=== PATIENT | female | born 1970 | race Caucasian/White ===

== ENCOUNTER → 2023-11-08 12:52 | Outpatient (CLI) | payer BC, SELFPAY ==
--- NOTE | ~2023-11-08 | US_ITS ---
EXAMINATION: US pelvic complete w TV DATE: 11/08/2023 13:17 INDICATION: Unspecified abdominal pain TECHNIQUE: Multiple transabdominal and endovaginal sonographic images of the pelvis were obtained. COMPARISON: None. FINDINGS: The uterus measures 7.6 x 4.5 x 4.0 cm. The endometrial complex measures 2 mm. The ovaries are not visualized however no adnexal abnormality is seen. There is no free fluid in the pelvis. IMPRESSION: 1. No sonographic correlate for the patient's symptoms. Reviewed, dictated and finalized at location L. EW PROFESSOR
== END ==
PROVIDERS: PCP Obstetrics & Gynecology; Visit Provider Obstetrics & Gynecology
DX: R10.9 Unspecified abdominal pain (principal)
CPT/HCPCS: 76830; 76856

== ENCOUNTER 2024-01-21 12:41 | Outpatient (CLI) | payer BC, SELFPAY ==
--- NOTE | ~2024-01-21 | MR_ITS ---
EXAMINATION: MR knee LT wo con DATE: 01/21/2024 13:22 INDICATION: Left knee pain TECHNIQUE: Magnetic resonance imaging (MRI) of the left knee was performed without intravenous contra st. Sequences included coronal PD-weighted FSE, coronal PD-weighted FS FSE, sagittal T2-weighted FSE , sagittal PD-weighted FS FSE and axial PD weighted fat saturated FSE. COMPARISON: None. FINDINGS: Medial compartment: Medial meniscus is normal. Shallow chondral ulceration with chondral surface irregularity at the ante rior weightbearing medial femoral condyle. Lateral compartment: Lateral meniscus is normal. Small regions of partial-thickness chondral fissuring at the central aspe ct of the lateral patellar facet and the deeper chondral fissuring involving greater than 50% of the cartilage thickness at the anterior weightbearing lateral femoral condyle. Patellofemoral compartment: Deep patellar chondral ulceration and fissuring with underlying subarticular edema-like signal change predominantly along the patellar apical ridge and medial and inferolateral aspect of the lateral pat ellar facet. Small central subchondral osteophyte underlying a region of partial-thickness chondral u lceration at the central aspect of the medial trochlea. Less severe shallow chondral surface regulari ty along the cephalad aspect of the trochlear groove and lateral trochlea. Ligaments and tendons: Anterior and posterior cruciate ligaments are normal. The medial collateral ligament and fibular mary ateral ligament complex are normal. The extensor mechanism is normal. The visualized medial and later al hamstring tendons as well as the iliotibial band are normal. Fluid: Moderate-sized left knee joint effusion with suprapatellar plical band. No loose osteochondral bodies identified. Small amount of nonloculated fluid tracking along the superficial margin of the medial h ead of gastrocnemius likely extravasation from a ruptured small Gallagher's cyst. Osseous/other: Small low signal intensity bone island at the anterior medial tibial plateau. No fracture or patholog ic marrow replacing process. IMPRESSION: 1. 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 2. Moderate-sized left knee joint effusion and likely ruptured small Gallagher's cyst. Reviewed, dictated and finalized at location A. IMPRESSION: 1. 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 2. Moderate-sized left knee joint effusion and likely ruptured small Gallagher's cy st.
== END 2024-01-21 12:42 ==
PROVIDERS: PCP Internal Medicine; Visit Provider Internal Medicine
DX: M17.12 Unilateral primary osteoarthritis, left knee (principal); M94.262 Chondromalacia, left knee; M25.462 Effusion, left knee; M71.22 Synovial cyst of popliteal space [Baker], left knee
CPT/HCPCS: 73721

== ENCOUNTER 2024-11-10 05:46 | Emergency (ER) | payer BC, SELFPAY ==
--- NOTE | ~2024-11-10 | CT_ITS ---
Non-contrast CT scan of the Abdomen and Pelvis Clinical indication: Abdominal pain Technique: 2.5 mm axial scans were obtained through the abdomen and pelvis without intravenous or or al contrast. Dose reduction technique was used on this scan by utilizing automated exposure control a nd iterative reconstruction technique. The dose-length product (DLP) was 1376.00 mGy-cm. Findings: Images through the lung bases reveal no abnormalities. There is no evidence of renal or ureteral calculi. The kidneys and the ureters are nondilated. The liver, spleen, pancreas, gallbladder, and adrenals appear normal. There are atherosclerotic calci fications of the aorta. There is no evidence of bowel obstruction. No evidence to suggest appendicitis. Images through the pelvis were performed. There is no evidence of ascites or lymphadenopathy. Urinary bladder unremarkable. No adnexal mass seen. No ascites. Impression: No significant abnormality seen. Reviewed, dictated and finalized at [facility]. SHER ACCORDION Impression: No significant abnormality seen.
--- OUTSIDE RECORDS SUMMARY | 2024-11-10 05:49 | XMS_ITS | Referral Summary ---
Author Organization [facility] Address [address] [facility] [place] [address] Care Team Providers Care Hydrometer Calibrator Name Role Phone Ladarius Osborne MD Primary Care Provider [phone] Source Comments [facility],non-owned Affiliates and Associated Physician Practices is amultiple site organization consisting of ambulatory clinics and hospital sitesin [place], [place], [place] and [place]. This disclosure is being madepursuant to the Care Everywhere program and may not contain all information available regarding this patient. Last updated 18.[facility] [employer] Allergies Active Allergy Reactions Criticality Noted Date Comments Contrast-Iodinated Agents For Ct/Other 07/12/2017 Immunizations Name Administration Dates Next Due TDAP (7yrs+) 07/12/2017 Social History Tobacco Use Types Packs/Day Years Used Date Smoking Tobacco: Never Assessed Sex and Gender Information Value Date Recorded Sex Assigned at Not on file Gender Identity Not on file Sexual Orientation Not on file Plan of Treatment Not on file Care Teams Hydrometer Calibrator Relationship Specialty Start Date End Date Ladarius Osborne MD PCP - General Internal Medicine 07/12/17
--- OUTSIDE RECORDS SUMMARY | 2024-11-10 05:49 | XMS_ITS | Referral Summary ---
Author Organization [facility] Medical [facility] Address [address] [facility] [place] [address] Care Team Providers Care Battery Parts Assembler Name Role Phone Ladarius Osborne MD Primary Care Provider [phone] Solo Pritchett MD Unavailable [phone] Allergies Active Allergy Reactions Criticality Noted Date Comments Iodinated Contrast Media Hives Medium Medications cetirizine (ZyrTEC) 10 mg tablet Take 10 mg by mouth daily. Active albuterol HFA (PROVENTIL HFA,VENTOLIN HFA,PROAIR HFA) 90 mcg/actuation inhaler albuterol sulfate HFA 90 mcg/actuation aerosol inhaler INL 2 PFS PO QID FOR 25 DAYS Active fluticasone propionate (FLONASE) 50 mcg/actuation nasal spray fluticasone propionate 50 mcg/actuation nasal spray,suspension SHAKE LQ AND U 2 SPRAYS IEN QD IN THE BRYAN Active Breo Ellipta 200-25 mcg/dose diskus inhaler INL 1 PUFF PO QD 9 Active OptiChamber Nevaeh Lg Mask spacer U UTD PER ASTHMA ACTION PLAIN 9 Active lisinopriL (PRINIVIL,ZESTR IL) 10 mg tablet Take 10 mg by mouth daily Active hydroCHLOROthia zide (MICROZIDE) 12.5 mg capsule Take 12.5 mg by mouth daily Active atorvastatin (LIPITOR) 10 mg tablet Take 10 mg by mouth daily Active Active Problems Problem Noted Date Diagnosed Date Fibrocystic breast changes of both breasts 09/02 Social History Tobacco Use Types Packs/Day Years Used Date Smoking Tobacco: Former Cigarettes Q uit: 2006 Smokeless Tobacco: Never Alcohol Use Standard Drinks/Week Comments Yes 0 (1 standard drink = 0.6 oz pur e alcohol) occasionally AUDIT-C Answer Date Recorded Q1: How often do you have a drink containing alc ohol? Monthly or less 05/03/2021 Q2: How many drinks containi ng alcohol do you have on a typical day when you are drinking? 1 or 2 05/03/2021 Q3: How often do you have si x or more drinks on one occasion? Never 05/03/2021 Personal Safety Answer Date Recorded Have you ever been in or are you currently in a harmful physical or emotional relationship or is someone making you feel afraid or unsafe? Denies 11/09/2023 Comments No Sex and Gender Information Value Date Recorded Sex Assigned at Not on file Legal Sex Female 7:28 PM ROUTE RIDER SUPERVISOR Gender Identity Not on file Sexual Orientation Not on file Last Filed Vital Signs Vital Sign Reading Time Taken Comments Blood Pressure 150/94 11/10/2023 12:35 AM ROUTE RIDER SUPERVISOR Pulse 79 11/10/2023 1:10 AM ROUTE RIDER SUPERVISOR Temperature 36.6 C (97.8 F) 11/09/2023 6:10 PM ROUTE RIDER SUPERVISOR Respiratory Rate 20 11/09/2023 6:10 PM ROUTE RIDER SUPERVISOR Oxygen Saturation 98% 11/10/2023 1:10 AM ROUTE RIDER SUPERVISOR Inhaled Oxygen Concentration - - Weight 117.9 kg (260 lb) 11/09/2023 6:10 PM ROUTE RIDER SUPERVISOR Height 175.3 cm (5' 9 ) 11/09/2023 6:10 PM ROUTE RIDER SUPERVISOR Body Mass Index 38.4 11/09/2023 6:10 PM ROUTE RIDER SUPERVISOR Plan of Treatment Not on file Procedures Procedure Name Priority Date/Time Associated Diagnosis Comments DIAGNOSTIC MAMMOGRAM BILATERAL W ALEN Schedule Routine, Read Routine (OP Routine) 10/27/2022 3:09 PM ROUTE RIDER SUPERVISOR Mass of left breast, unspecified quadrant COLONOSCOPY 05/03/2021 7:12 AM CDT from Last 3 Months or Most Recently Relevant to Health Maintenance Results * Diagnostic Mammogram Bilateral W Alen (10/27/2022 3:09 PM ROUTE RIDER SUPERVISOR) Anatomical Region Laterality Modality Breast Bilateral Mammography 10/27/2022 3:48 PM ROUTE RIDER SUPERVISOR Impressions 10/27/2022 3:48 PM ROUTE RIDER SUPERVISOR 1. No evidence of malignancy in either breast. 2. No mammographic or sonographic correlate for area of clinical concern in left breast. In the absence of imaging findings, any decision for further intervention should be based on the clinical assessment. OVERALL FINAL ASSESSMENT: BI-RADS Category 2: Benign. RECOMMENDATION: 1. Annual screening mammography is recommended. 2. Clinical follow-up is recommended. Electronically signed by: Martine Cruz M.D. Narrative 10/27/2022 3:48 PM ROUTE RIDER SUPERVISOR EXAMINATION: BILATERAL DIGITAL DIAGNOSTIC MAMMOGRAM INCLUDING CAD AND BILATERAL DIGITAL BREAST TOMOSYNTHESIS; LEFT BREAST SONOGRAM HISTORY: 52-year-old woman with area of palpable concern in the left breast. COMPARISON: Multiple prior studies, most recently 01/18/2022 and dating back to 07/21/2016. TECHNIQUE: Full field digital mammographic views of BOTH breasts were performed, including computer aided detection (CAD) and BILATERAL digital breast tomosynthesis (DBT). Directed ultrasound evaluation of the LEFT breast was performed. BREAST PARENCHYMAL COMPOSITION: There are scattered areas of fibroglandular density. MAMMOGRAM FINDINGS: There is no suspicious mass, distortion, or microcalcification in either breast. There has been no significant interval change from the previous study. Masses and calcifications in both breasts are stable. No mammographic abnormality is seen in the area of palpable clinical concern in the left breast indicated by triangle skin marker. SONOGRAM FINDINGS: Targeted ultrasound was performed in the area of clinical concern in the region of the left nipple. There is no sonographic abnormality. Procedure Note Martine Cruz MD - 10/27/2022 EXAMINATION: BILATERAL DIGITAL DIAGNOSTIC MAMMOGRAM INCLUDING CAD AND BILATERAL DIGITAL BREAST TOMOSYNTHESIS; LEFT BREAST SONOGRAM HISTORY: 52-year-old woman with area of palpable concern in the left breast. COMPARISON: Multiple prior studies, most recently 01/18/2022 and dating back to 07/21/2016. TECHNIQUE: Full field digital mammographic views of BOTH breasts were performed, including computer aided detection (CAD) and BILATERAL digital breast tomosynthesis (DBT). Directed ultrasound evaluation of the LEFT breast was performed. BREAST PARENCHYMAL COMPOSITION: There are scattered areas of fibroglandular density. MAMMOGRAM FINDINGS: There is no suspicious mass, distortion, or microcalcification in either breast. There has been no significant interval change from the previous study. Masses and calcifications in both breasts are stable. No mammographic abnormality is seen in the area of palpable clinical concern in the left breast indicated by triangle skin marker. SONOGRAM FINDINGS: Targeted ultrasound was performed in the area of clinical concern in the region of the left nipple. There is no sonographic abnormality. IMPRESSION: 1. No evidence of malignancy in either breast. 2. No mammographic or sonographic correlate for area of clinical concern in left breast. In the absence of imaging findings, any decision for further intervention should be based on the clinical assessment. OVERALL FINAL ASSESSMENT: BI-RADS Category 2: Benign. RECOMMENDATION: 1. Annual screening mammography is recommended. 2. Clinical follow-up is recommended. Electronically signed by: Martine Cruz M.D. Solo Pritchett MD IMG MAMMO PROCEDURES Final Result * COLONOSCOPY (05/03/2021 7:12 AM CDT) Anatomical Region Laterality Modality Other Narrative Procedure Note Ladarius Cruz MD - 05/03/2021 7:12 AM CDT [facility] Patient Name: Camden Gudino Procedure Date: 05/03/2021 7:12 AM Date of : 1970 Admit Type: Outpatient Age: 51 Gender: Female Attending MD: Ladarius Cruz M.D. Room: [facility] ROOM 02 Note Status: Finalized Procedure: Colonoscopy Indications: Screening for colorectal malignant neoplasm, Thisis the patient's first colonoscopy Referring MD: Ladarius Osborne M.D. Providers: Ladarius Cruz M.D. Medicines: Monitored Anesthesia Care Complications: No immediate complications. Estimated Blood Loss: Estimated blood loss was minimal. Procedure: Pre-Anesthesia Assessment: - Prior to the procedure, a History and Physicalwas performed, and patient medications, allergies and sensitivities were reviewed. The patient'stolerance of previous anesthesia was reviewed. - The risks and benefits of the procedure and the sedation options and risks were discussed with the patient. All questions were answered and informed consent was obtained. - Immediately prior to administration ofmedications, the patient was re-assessed for adequacy to receive sedatives. The benefits, risks and alternatives of theprocedure and sedation were discussed and informed consentwas obtained. All questions were answered. Please referto the signed informed consent document in the medical record. The scope was passed under direct vision.The [id number] Colonoscope was introducedthrough the anus and advanced to the the terminal ileum.The colonoscopy was performed without difficulty. The patient tolerated the procedure well. The qualityof the bowel preparation was evaluated using the BBPS (Varina Bowel Preparation Scale) with scores of:Right Colon = 3, Transverse Colon = 3 and Left Colon = 3 (entire mucosa seen well with no residual staining, small fragments of stool or opaque liquid). Thetotal BBPS score equals 9. The bowel preparation used was GoLYTELY. Bowel prep was administered using a split dose. Findings: The terminal ileum appeared normal. Two sessile polyps were found in the ascending colon. The polyps were3 mm in size. These polyps were removed with a jumbo cold forceps. Resection and retrieval were complete. A 2 mm polyp was found in the descending colon. The polyp wassessile. The polyp was removed with a jumbo cold forceps. Resection andretrieval were complete. Two sessile polyps were found in the sigmoid colon. The polyps were 4to 6 mm in size. These polyps were removed with a cold snare. Resectionand retrieval were complete. A few hyperplastic polyps were found in the rectum and in the sigmoid colon. The polyps were diminutive in size. Internal hemorrhoids were found during retroflexion. The hemorrhoids were small and Grade I (internal hemorrhoids that do not prolapse). Impression: - The examined portion of the ileum was normal. - Two 3 mm polyps in the ascending colon. Resectedand retrieved. - One 2 mm polyp in the descending colon. Resectedand retrieved. - Two 4 to 6 mm polyps in the sigmoid colon.Resected and retrieved. - A few diminutive polyps in the rectum and in the sigmoid colon. - Internal hemorrhoids. Recommendation: - Await pathology results. - Repeat colonoscopy in 3 years for surveillance. - Contact Information: During normal business hours - [facility]: [phone] After hours, evening, nights, weekends and holidays- Please call the hospital jumpbasting machine operator at and ask for the GI fellow email production specialist. Attending Participation: I personally performed the entire procedure. Electronically signed by Ladarius Cruz MD Ladarius Cruz M.D. 05/03/2021 2:18:45 PM . Number of Addenda: 0 Note Initiated On: 05/03/2021 7:12 AM Recognized by the [place] [employer] for promoting quality in endoscopy Ladarius Cruz MD ENDOSCOPY PROCEDURES Final Result from Last 3 Months or Most Recently Relevant to Health Maintenance Insurance [facility] SupplyHog OOS [facility] ACCESS BLUE [place] BLUE ACCESS OOS BLUE ACC[place]M ACCESS Care Teams Battery Parts Assembler Relationship Specialty Start Date End Date Ladarius Osborne MD PCP - General 05/17/17 Solo Pritchett MD [address] [place] [address] Referring Physician Obstetrics and Gynecology 11/25/19
--- OUTSIDE RECORDS SUMMARY | 2024-11-10 05:49 | XMS_ITS | Clinical Summary ---
Author Organization [facility] Address [address] [place] [address] Care Team Providers Care Trackmobile Operator Name Role Phone Ladarius Osborne MD Primary Care Provider [phone] Source Comments [facility],non-owned Affiliates and Associated Physician Practices is amultiple site organization consisting of ambulatory clinics and hospital sitesin [place], [place], [place] and [place]. This disclosure is being madepursuant to the Care Everywhere program and may not contain all information available regarding this patient. Last updated 18.[facility] Allergies Active Allergy Reactions Criticality Noted Date Comments Contrast-Iodinated Agents For Ct/Other 07/12/2017 Immunizations Name Administration Dates Next Due TDAP (7yrs+) 07/12/2017 Social History Tobacco Use Types Packs/Day Years Used Date Smoking Tobacco: Never Assessed Sex and Gender Information Value Date Recorded Sex Assigned at Not on file Gender Identity Not on file Sexual Orientation Not on file Plan of Treatment Health Maintenance Due Date Last Done Comments COLOGUARD (AGES 45-75) - COL ON CA SCREENING 1970 COLON MONITORING 1971 COLONOSCOPY - COLON CA SCREENING 1971 CT COLONOGRAPHY - COLON CA SCREENING 1970 Colorectal Cancer Screening 1970 FIT - COLON CA SCREENING 1971 FLEX SIG - COLON CA SCREENING 1971 LIPID TESTING 1970 MAMMOGRAM 1970 PAP SMEAR 1971 HIV SCREENING 1986 HEPATITIS C SCREENING 03/10/1989 HEPATITIS B VACCINE (1 of 3 - 19+ 3-dose series) 1990 PNEUMOCOCCAL VACCINE 50+ (1 of 1 - PCV) 2021 ZOSTER VACCINE (1 of 2) 2021 COVID-19 VACCINE (1 - 2023-2 5 season) 2024 INFLUENZA VACCINE (#1) 2024 DEPRESSION SCREENING 10/01/2024 DTAP/TDAP/TD VACCINES (2 - T d or Tdap) 07/12/2027 07/12/2017 HIB VACCINE Aged Out No longer eligi ble based on patient's age to complete this topic HPV VACCINE Aged Out No longer eligi ble based on patient's age to complete this topic MENINGOCOCCAL (Group B) VACCINE Aged Out No longer eligible based on patient's age to complete this topic MENINGOCOCCAL VACCINE Aged Out No ihsan rolanda eligible based on patient's age to complete this topic PNEUMOCOCCAL VACCINE Aged Out No long er eligible based on patient's age to complete this topic Care Teams Trackmobile Operator Relationship Specialty Start Date End Date Ladarius Osborne MD PCP - General Internal Medicine 07/12/17
--- OUTSIDE RECORDS SUMMARY | 2024-11-10 05:49 | XMS_ITS | Clinical Summary ---
Author Organization 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 Active hydroCHLOROthiaz abhay (HYDRODIURIL) 12.5 mg tablet Take 1 Tablet by mouth daily. Active cetirizine (ZyrTEC) 10 mg tablet Take 1 Tablet by mouth daily. Active atorvastatin (LIPITOR) 10 mg tablet Take 1 Tablet by mouth daily. Active meloxicam (MOBIC) 15 mg tablet Take 1 Tablet by mouth daily. Active Active Problems No known active problems Family History Medical History Relation Name Comments Cancer Father Lung Cancer Lung Cancer Father Other Father Tobacco Use Cancer Maternal Aunt Stomach Cancer Clotting Disorder Maternal Aunt Blood Lala ts High Cholesterol Maternal Aunt Hypertension Maternal Aunt Other Maternal Aunt Tobacco Use Stomach Cancer Maternal Aunt Heart Disease Maternal Grandfather Other Maternal Grandfather Tobacco Use Diabetes Maternal Grandmother Heart Disease Maternal Grandmother High Cholesterol Maternal Grandmother Hypertension Maternal Grandmother Cancer Maternal Uncle Colon Cancer Colon Cancer Maternal Uncle Other Maternal Uncle Tobacco use Other Mother Tobacco Use No Known Problems Paternal Grandfather No Known Problems Paternal Grandmother High Cholesterol Sister Hypertension Sister Other Sister Tobacco Use Relation Name Status Comments Father Maternal Aunt Maternal Grandfather Maternal Grandmother Maternal Uncle Mother Paternal Grandfather Paternal Grandmother Sister Social History Tobacco Use Types Packs/Day Years Used Date Smoking Tobacco: Former Cigarettes Q uit: 10/01/2005 Smokeless Tobacco: Never Alcohol Use Standard Drinks/Week Comments Yes 0 (1 standard drink = 0.6 oz pur e alcohol) Social drinker Comments Unknown Sex and Gender Information Value Date Recorded Sex Assigned at Not on file Legal Sex Female 1:38 PM CDT Gender Identity Not on file Sexual Orientation Not on file Last Filed Vital Signs Vital Sign Reading Time Taken Comments Blood Pressure 143/92 08/30/2021 10:00 AM [employer]NAGER [facility] Pulse 90 08/30/2021 10:00 AM [employer]NA[employer] Temperature 36.7 C (98.1 F) 08/30/2021 10:00 AM MANAGER [facility]ANNEL Respiratory Rate - - Oxygen Saturation - - Inhaled Oxygen Concentration - - Weight 117 kg (258 lb) 08/30/2021 10:00 AM MANAGER [employer]ANNEL Height 175 cm (5' 8.9 ) 08/30/2021 10:00 AM MANAGER [employer]ANNEL Body Mass Index 38.21 08/30/2021 10:00 AM MANAGER CHANNEL Plan of Treatment Health Maintenance Due Date Last Done Comments HEPATITIS B VACCINES (1 of 3 - 19+ 3-dose series) 1990 CERVICAL CANCER SCREENING 2001 BREAST CANCER SCREENING 2011 FIT-DNA Q 3 years 2016 FIT/FOBT Q 1 year 2016 Flex Sig/CT Colonography Q 5 years 2016 ZOSTER VACCINE (1 of 2) 2021 INFLUENZA VACCINE (#1) 2024 08/15/2017 DTAP/TDAP/TD VACCINES (2 - T d or Tdap) 07/12/2027 07/12/2017 COLORECTAL SCREENING 05/03/2031 05/03/2021 Colorectal Cancer Screening 05/03/2031 PNEUMOCOCCAL VACCINE 0-64 YEARS Aged Out No longer eligible based on patient's age to complete this topic Insurance BCBS BLUE ACCESS/TRUE BLUE PPO [facility]
--- OUTSIDE RECORDS SUMMARY | 2024-11-10 05:49 | XMS_ITS | Data Portability ---
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 Lab urinalysis, microscopic 2022 023 [facility] (Lab), [address] [place], [address], 3 09:26:32 lipid panel, serum 2022 023 [facility] (Lab), [address] [place], [address], 3 19:06:36 CMP, serum or plasma 2022 023 [facility] (Lab), [address] [place], [address], 3 19:06:51 CBC w/ auto diff 2022 023 [id number] [facility] (Lab), [address] [place], [address], 3 18:25:34 Referral None recorded. Procedures None recorded. Surgeries None recorded. Imaging None recorded. Medication Orders Macrobid 100 mg capsule 2022 023 [id number] [id number], [address], [place], [place], [id number], 3 18:25:34 Patient TargetsNo targets recorded. Patient InstructionsNo instructions recorded. Reason for Referral None Reported. Results Created Date Observation Date Name Description Value Unit Range Abnormal Flag Note LastModifiedBy Organization Detail LastModifiedTime 11/17/19 22 11/17/2021 LIPID PANEL cholesterol 185 mg/dL 140-19 9 NIH TONI NSUS RECOM MENDA TION FOR MERCEDES STERO L: ADULT CHILD LOW RISK: <200 <170 BORDE RLINE : <200- 239 ----- HIGH RISK: >240 >200 Not Available [facility] (Lab) [address] [place], [address], 11/17/2021 16:16:44 11/17/19 22 11/17/2021 LIPID PANEL triglyceride s 119 mg/dL 0-150 NIH TONI NSUS REPOR T RECOM MENDA TION FOR TRIGL YCERI ASHLEY: ADULT CHILD LOW RISK: <150 ----- BODER LINE: 150-1 99 ----- HIGH RISK: >200 ----- Not Available [facility] (Lab) [address] [place], [address], 11/17/2021 16:16:44 11/17/19 22 11/17/2021 LIPID PANEL HDL cholesterol 49 mg/dL 40- Not Available [facility] (Lab) [address] [place], [address], 11/17/2021 16:16:44 11/17/19 22 11/17/2021 LIPID PANEL LDL cholesterol, calculated 112 mg/dL 0-130 NIH TONI NSUS REPOR T RECOM MENDA TIONS FOR LDL: ADULT CHILD LOW RISK <130 <110 (OPTI MAL LDL) <100 ----- KELBYDE RLINE : 130-1 59 ----- HIGH RISK: >160 >130 A TRIGL YCERI DE RESUL T >400 INVAL IDATE S THE CALCU LATIO N FOR LDL FRACT IONAT ION - THE LDL RESUL T WILL NOT BE REPOR CHETAN. Not Available [facility] (Lab) [address] [place], [address], 11/17/2021 16:16:44 11/17/19 22 11/17/2021 CBC/C OMPLE TE BLD COUNT W/DIF F mean red cell volume 88.9 fL 82.0-9 9.0 Not Available [facility] (Lab) [address] [place], [address], 11/17/2021 14:42:42 11/17/19 22 11/17/2021 CBC/C OMPLE TE BLD COUNT W/DIF F white blood cells 9.1 x10'3 /uL 4.2-10 .8 Not Available [facility] (Lab) [address] [place], [address], 11/17/2021 14:42:42 11/17/19 22 11/17/2021 CBC/C OMPLE TE BLD COUNT W/DIF F red blood cells 5.52 x10'6 /uL 3.80-5 .20 high Not Available [facility] (Lab) [address] [place], [address], 11/17/2021 14:42:42 11/17/19 22 11/17/2021 CBC/C OMPLE TE BLD COUNT W/DIF F hemoglobin 15.8 g/dL 12.0-1 5.6 high Not Available [facility] (Lab) [address] [place], [address], 11/17/2021 14:42:42 11/17/19 22 11/17/2021 CBC/C OMPLE TE BLD COUNT W/DIF F hematocrit 49.1 % 35.7-4 5.7 high Not Available [facility] (Lab) [address] [place], [address], 11/17/2021 14:42:42 11/17/19 22 11/17/2021 CBC/C OMPLE TE BLD COUNT W/DIF F mean red cell hemoglobin 28.6 pg 27.0-3 3.0 Not Available [facility] (Lab) [address] [place], [address], 11/17/2021 14:42:42 11/17/19 22 11/17/2021 CBC/C OMPLE TE BLD COUNT W/DIF F mean RBC HGB concentratio n 32.2 g/dL 31.0-3 6.0 Not Available [facility] (Lab) [address] [place], [address], 11/17/2021 14:42:42 11/17/19 22 11/17/2021 CBC/C OMPLE TE BLD COUNT W/DIF F red cell distribution width 13.9 % 11.8-1 5.5 Not Available [facility] (Lab) [address] [place], [address], 11/17/2021 14:42:42 11/17/19 22 11/17/2021 CBC/C OMPLE TE BLD COUNT W/DIF F platelets 355 x10'3 /uL 150-40 0 Not Available [facility] (Lab) [address] [place], [address], 11/17/2021 14:42:42 11/17/19 22 11/17/2021 CBC/C OMPLE TE BLD COUNT W/DIF F mean platelet volume 10.3 fL 9.0-12 .4 Not Available [facility] (Lab) [address] [place], [address], 11/17/2021 14:42:42 11/17/19 22 11/17/2021 CBC/C OMPLE TE BLD COUNT W/DIF F neutrophils 65.0 % 39.0-7 2.0 Not Available [facility] (Lab) [address] [place], [address], 11/17/2021 14:42:42 11/17/19 22 11/17/2021 CBC/C OMPLE TE BLD COUNT W/DIF F lymphocytes 25.4 % 16.0-4 7.0 Not Available [facility] (Lab) [address] [place], [address], 11/17/2021 14:42:42 11/17/19 22 11/17/2021 CBC/C OMPLE TE BLD COUNT W/DIF F monocytes 7.1 % 5.0-12 .0 Not Available [facility] (Lab) [address] [place], [address], 11/17/2021 14:42:42 11/17/19 22 11/17/2021 CBC/C OMPLE TE BLD COUNT W/DIF F eosinophils 1.4 % 1.0-7. 0 Not Available [facility] (Lab) [address] [place], [address], 11/17/2021 14:42:42 11/17/19 22 11/17/2021 CBC/C OMPLE TE BLD COUNT W/DIF F basophils 0.7 % 0.0-2. 0 Not Available [facility] (Lab) [address] [place], [address], 11/17/2021 14:42:42 11/17/19 22 11/17/2021 CBC/C OMPLE TE BLD COUNT W/DIF F immature granulocytes 0.4 % 0.00-0 .50 Not Available [facility] (Lab) [address] [place], [address], 11/17/2021 14:42:42 11/17/19 22 11/17/2021 CBC/C OMPLE TE BLD COUNT W/DIF F neutrophils, absolute count 5.92 x10'3 /uL 1.5-8. 0 Not Available [facility] (Lab) [address] [place], [address], 11/17/2021 14:42:42 11/17/19 22 11/17/2021 CBC/C OMPLE TE BLD COUNT W/DIF F lymphocytes, absolute count 2.31 x10'3 /uL 1.07-3 .43 Not Available [facility] (Lab) [address] [place], [address], 11/17/2021 14:42:42 11/17/19 22 11/17/2021 CBC/C OMPLE TE BLD COUNT W/DIF F monocytes, absolute count 0.65 x10'3 /uL 0.29-0 .99 Not Available [facility] (Lab) [address] [place], [address], 11/17/2021 14:42:42 11/17/19 22 11/17/2021 CBC/C OMPLE TE BLD COUNT W/DIF F eosinophils, absolute count 0.13 x10'3 /uL 0.02-0 .53 Not Available [facility] (Lab) [address] [place], [address], 11/17/2021 14:42:42 11/17/19 22 11/17/2021 CBC/C OMPLE TE BLD COUNT W/DIF F basophils, absolute count 0.06 x10'3 /uL 0.01-0 .08 Not Available [facility] (Lab) [address] [place], [address], 11/17/2021 14:42:42 11/17/19 22 11/17/2021 CBC/C OMPLE TE BLD COUNT W/DIF F immature granulocytes ,absolute 0.04 x10'3 /uL 0.00-0 .05 Not Available [facility] (Lab) [address] [place], [address], 11/17/2021 14:42:42 11/17/19 22 11/17/2021 CBC/C OMPLE TE BLD COUNT W/DIF F nucleated red blood cells 0.0 % -0 Not Available [facility] (Lab) [address] [place], [address], 11/17/2021 14:42:42 11/17/19 22 11/17/2021 CBC/C OMPLE TE BLD COUNT W/DIF F NRBC# 0.00 x10'3 /uL Not Available [facility] (Lab) [address] [place], [address], 11/17/2021 14:42:42 02/04/20 22 02/03/2022 TSH thyroid-stim ulating hormone 1.150 uIU/m L 0.465- 4.680 Not Available [facility] (Lab) [address] [place], [address], 02/03/2022 13:44:40 02/04/20 22 02/03/2022 COMPR EHENS SARAH METAB OLIC PANEL carbon dioxide 29 mmol/ L 22-30 Not Available [facility] (Lab) [address] [place], [address], 02/03/2022 13:16:55 02/04/20 22 02/03/2022 COMPR EHENS SARAH METAB OLIC PANEL sodium 139 mmol/ L 137-14 5 Not Available [facility] (Lab) [address] [place], [address], 02/03/2022 13:16:55 02/04/20 22 02/03/2022 COMPR EHENS SARAH METAB OLIC PANEL potassium 4.8 mmol/ L 3.5-5. 1 Not Available [facility] (Lab) [address] [place], [address], 02/03/2022 13:16:55 02/04/20 22 02/03/2022 COMPR EHENS SARAH METAB OLIC PANEL chloride 101 mmol/ L 98-107 Not Available [facility] (Lab) [address] [facility] [place], [address], 02/03/2022 13:16:55 02/04/20 22 02/03/2022 COMPR EHENS SARAH METAB OLIC PANEL anion gap 13.8 mmol/ L 14-22 low Not Available [facility] (Lab) [address] [place], [address], 02/03/2022 13:16:55 02/04/20 22 02/03/2022 COMPR EHENS SARAH METAB OLIC PANEL glucose 97 mg/dL 70-99 Not Available [facility] (Lab) [address] [place], [address], 02/03/2022 13:16:55 02/04/20 22 02/03/2022 COMPR EHENS SARAH METAB OLIC PANEL BUN 16 mg/dL 8-19 Not Available [facility] (Lab) [address] [place], [address], 02/03/2022 13:16:55 02/04/20 22 02/03/2022 COMPR EHENS SARAH METAB OLIC PANEL creatinine 0.97 mg/dL 0.66-1 .25 Not Available [facility] (Lab) [address] [place], [address], 02/03/2022 13:16:55 02/04/20 22 02/03/2022 COMPR EHENS SARAH METAB OLIC PANEL GFR >60 Refer ence Range : [place] GFR Healt hy Adult : >60 mL/mi n/1.7 3 m2 Chron ic Kidne y Disea se: 15-60 mL/mi n/1.7 3 m2 Kidne y Failu re: <15/m L/min /1.73 m2 www.n iddk. nih.g ov The MDRD study equat ion has not been valid ated in child calixto <18 years of age; pregn ant women ; the elder ly >85 years of age; or in some racia l or ethni c subgr oups, such as Hiskim nics. Outsi de the valid ated davi eters , estim ated GFR is less accur ate, requi ring clini edmond judgm ent on a case- by-ca se basis . Clini edmond inter preta tion for other races and ages must be made by the clini denton. The MDRD study equat ion has not been valid ated for the evalu ation of serum creat inine relat ed to nutri latrell l statu s or medic ation usage . For perso ns <18 years of age, a pedia tric GFR calcu lator is avail able on the [facility] websi te: https ://murphy lares.alexa abbott.o rg/pr ofess ional s/kdo qi/gf r_cal culat or Not Available [facility] (Lab) [address] [place], [address], 02/03/2022 13:16:55 02/04/20 22 02/03/2022 COMPR EHENS SARAH METAB OLIC PANEL alkaline phosphatase 92 U/L 38-126 Not Available [facility] (Lab) [address] [place], [address], 02/03/2022 13:16:55 02/04/20 22 02/03/2022 COMPR EHENS SARAH METAB OLIC PANEL alanine aminotransfe rase 41 U/L 0-35 high Not Available [facility] (Lab) [address] [place], [address], 02/03/2022 13:16:55 02/04/20 22 02/03/2022 COMPR EHENS SARAH METAB OLIC PANEL aspartate aminotransfe rase 31 U/L 15-37 Not Available [facility] (Lab) [address] [place], [address], 02/03/2022 13:16:55 02/04/20 22 02/03/2022 COMPR EHENS SARAH METAB OLIC PANEL bilirubin, total 0.30 mg/dL 0.20-1 .30 Not Available [facility] (Lab) [address] [place], [address], 02/03/2022 13:16:55 02/04/20 22 02/03/2022 COMPR EHENS SARAH METAB OLIC PANEL calcium 10.8 mg/dL 8.4-10 .2 high Not Available [facility] (Lab) [address] [place], [address], 02/03/2022 13:16:55 02/04/20 22 02/03/2022 COMPR EHENS SARAH METAB OLIC PANEL total protein 7.9 g/dL 6.3-8. 2 Not Available [facility] (Lab) [address] [place], [address], 02/03/2022 13:16:55 02/04/20 22 02/03/2022 COMPR EHENS SARAH METAB OLIC PANEL albumin 4.7 g/dL 3.4-5. 0 Not Available [facility] (Lab) [address] [place], [address], 02/03/2022 13:16:55 02/04/20 22 02/03/2022 COMPR EHENS SARAH METAB OLIC PANEL globulin 3.2 g/dL 2.6-4. 2 Not Available [facility] (Lab) [address] [place], [address], 02/03/2022 13:16:55 02/04/20 22 02/03/2022 COMPR EHENS SARAH METAB OLIC PANEL A/G ratio 1.5 ratio 1.0-2. 0 Not Available [facility] (Lab) [address] [place], [address], 02/03/2022 13:16:55 02/04/20 22 02/03/2022 MAGNE SIUM magnesium 1.9 mg/dL 1.6-2. 3 Not Available [facility] (Lab) [address] [facility] [place], [address], 02/03/2022 13:16:44 02/04/20 22 02/03/2022 CBC/C OMPLE TE BLD COUNT W/DIF F mean red cell volume 89.9 fL 82.0-9 9.0 Not Available [facility] (Lab) [address] [place], [address], 02/03/2022 12:45:14 02/04/20 22 02/03/2022 CBC/C OMPLE TE BLD COUNT W/DIF F white blood cells 9.0 x10'3 /uL 4.2-10 .8 Not Available [facility] (Lab) [address] [place], [address], 02/03/2022 12:45:14 02/04/20 22 02/03/2022 CBC/C OMPLE TE BLD COUNT W/DIF F red blood cells 5.64 x10'6 /uL 3.80-5 .20 high Not Available [facility] (Lab) [address] [place], [address], 02/03/2022 12:45:14 02/04/20 22 02/03/2022 CBC/C OMPLE TE BLD COUNT W/DIF F hemoglobin 16.2 g/dL 12.0-1 5.6 high Not Available [facility] (Lab) [address] [place], [address], 02/03/2022 12:45:14 02/04/20 22 02/03/2022 CBC/C OMPLE TE BLD COUNT W/DIF F hematocrit 50.7 % 35.7-4 5.7 high Not Available [facility] (Lab) [address] [place], [address], 02/03/2022 12:45:14 02/04/20 22 02/03/2022 CBC/C OMPLE TE BLD COUNT W/DIF F mean red cell hemoglobin 28.7 pg 27.0-3 3.0 Not Available [facility] (Lab) [address] [place], [address], 02/03/2022 12:45:14 02/04/20 22 02/03/2022 CBC/C OMPLE TE BLD COUNT W/DIF F mean RBC HGB concentratio n 32.0 g/dL 31.0-3 6.0 Not Available [facility] (Lab) [address] [place], [address], 02/03/2022 12:45:14 02/04/20 22 02/03/2022 CBC/C OMPLE TE BLD COUNT W/DIF F red cell distribution width 13.3 % 11.8-1 5.5 Not Available [facility] (Lab) [address] [place], [address], 02/03/2022 12:45:14 02/04/20 22 02/03/2022 CBC/C OMPLE TE BLD COUNT W/DIF F platelets 372 x10'3 /uL 150-40 0 Not Available [facility] (Lab) [address] [place], [address], 02/03/2022 12:45:14 02/04/20 22 02/03/2022 CBC/C OMPLE TE BLD COUNT W/DIF F mean platelet volume 10.2 fL 9.0-12 .4 Not Available [facility] (Lab) [address] [place], [address], 02/03/2022 12:45:14 02/04/20 22 02/03/2022 CBC/C OMPLE TE BLD COUNT W/DIF F neutrophils 67.6 % 39.0-7 2.0 Not Available [facility] (Lab) [address] [place], [address], 02/03/2022 12:45:14 02/04/20 22 02/03/2022 CBC/C OMPLE TE BLD COUNT W/DIF F lymphocytes 24.5 % 16.0-4 7.0 Not Available [facility] (Lab) [address] [place], [address], 02/03/2022 12:45:14 02/04/20 22 02/03/2022 CBC/C OMPLE TE BLD COUNT W/DIF F monocytes 6.1 % 5.0-12 .0 Not Available [facility] (Lab) [address] [place], [address], 02/03/2022 12:45:14 02/04/20 22 02/03/2022 CBC/C OMPLE TE BLD COUNT W/DIF F eosinophils 0.9 % 1.0-7. 0 low Not Available [facility] (Lab) [address] [place], [address], 02/03/2022 12:45:14 02/04/20 22 02/03/2022 CBC/C OMPLE TE BLD COUNT W/DIF F basophils 0.6 % 0.0-2. 0 Not Available [facility] (Lab) [address] [place], [address], 02/03/2022 12:45:14 02/04/20 22 02/03/2022 CBC/C OMPLE TE BLD COUNT W/DIF F immature granulocytes 0.3 % 0.00-0 .50 Not Available [facility] (Lab) [address] [place], [address], 02/03/2022 12:45:14 02/04/20 22 02/03/2022 CBC/C OMPLE TE BLD COUNT W/DIF F neutrophils, absolute count 6.08 x10'3 /uL 1.5-8. 0 Not Available [facility] (Lab) [address] [place], [address], 02/03/2022 12:45:14 02/04/20 22 02/03/2022 CBC/C OMPLE TE BLD COUNT W/DIF F lymphocytes, absolute count 2.20 x10'3 /uL 1.07-3 .43 Not Available [facility] (Lab) [address] [place], [address], 02/03/2022 12:45:14 02/04/20 22 02/03/2022 CBC/C OMPLE TE BLD COUNT W/DIF F monocytes, absolute count 0.55 x10'3 /uL 0.29-0 .99 Not Available [facility] (Lab) [address] [place], [address], 02/03/2022 12:45:14 02/04/20 22 02/03/2022 CBC/C OMPLE TE BLD COUNT W/DIF F eosinophils, absolute count 0.08 x10'3 /uL 0.02-0 .53 Not Available [facility] (Lab) [address] [place], [address], 02/03/2022 12:45:14 02/04/20 22 02/03/2022 CBC/C OMPLE TE BLD COUNT W/DIF F basophils, absolute count 0.05 x10'3 /uL 0.01-0 .08 Not Available [facility] (Lab) [address] [place], [address], 02/03/2022 12:45:14 02/04/20 22 02/03/2022 CBC/C OMPLE TE BLD COUNT W/DIF F immature granulocytes ,absolute 0.03 x10'3 /uL 0.00-0 .05 Not Available [facility] (Lab) [address] [place], [address], 02/03/2022 12:45:14 02/04/20 22 02/03/2022 CBC/C OMPLE TE BLD COUNT W/DIF F nucleated red blood cells 0.0 % -0 Not Available [facility] (Lab) [address] [place], [address], 02/03/2022 12:45:14 02/04/20 22 02/03/2022 CBC/C OMPLE TE BLD COUNT W/DIF F NRBC# 0.00 x10'3 /uL Not Available [facility] (Lab) [address] [facility] [place], [address], 02/03/2022 12:45:14 02/14/20 22 02/13/2022 CBC/C OMPLE TE BLD COUNT W/DIF F hemoglobin 14.9 g/dL 12.0-1 5.6 Not Available [facility] (Lab) [address] [place], [address], 02/13/2022 16:34:06 02/14/20 22 02/13/2022 CBC/C OMPLE TE BLD COUNT W/DIF F white blood cells 10.4 x10'3 /uL 4.2-10 .8 Not Available [facility] (Lab) [address] [place], [address], 02/13/2022 16:34:06 02/14/20 22 02/13/2022 CBC/C OMPLE TE BLD COUNT W/DIF F red blood cells 5.14 x10'6 /uL 3.80-5 .20 Not Available [facility] (Lab) [address] [place], [address], 02/13/2022 16:34:06 02/14/20 22 02/13/2022 CBC/C OMPLE TE BLD COUNT W/DIF F hematocrit 46.5 % 35.7-4 5.7 high Not Available [facility] (Lab) [address] [place], [address], 02/13/2022 16:34:06 02/14/20 22 02/13/2022 CBC/C OMPLE TE BLD COUNT W/DIF F mean red cell volume 90.5 fL 82.0-9 9.0 Not Available [facility] (Lab) [address] [place], [address], 02/13/2022 16:34:06 02/14/20 22 02/13/2022 CBC/C OMPLE TE BLD COUNT W/DIF F mean red cell hemoglobin 29.0 pg 27.0-3 3.0 Not Available [facility] (Lab) [address] [place], [address], 02/13/2022 16:34:06 02/14/20 22 02/13/2022 CBC/C OMPLE TE BLD COUNT W/DIF F mean platelet volume 10.3 fL 9.0-12 .4 Not Available [facility] (Lab) [address] [place], [address], 02/13/2022 16:34:06 02/14/20 22 02/13/2022 CBC/C OMPLE TE BLD COUNT W/DIF F mean RBC HGB concentratio n 32.0 g/dL 31.0-3 6.0 Not Available [facility] (Lab) [address] [place], [address], 02/13/2022 16:34:06 02/14/20 22 02/13/2022 CBC/C OMPLE TE BLD COUNT W/DIF F red cell distribution width 13.2 % 11.8-1 5.5 Not Available [facility] (Lab) [address] [place], [address], 02/13/2022 16:34:06 02/14/20 22 02/13/2022 CBC/C OMPLE TE BLD COUNT W/DIF F platelets 335 x10'3 /uL 150-40 0 Not Available [facility] (Lab) [address] [place], [address], 02/13/2022 16:34:06 02/14/20 22 02/13/2022 CBC/C OMPLE TE BLD COUNT W/DIF F neutrophils 72.3 % 39.0-7 2.0 high Not Available [facility] (Lab) [address] [place], [address], 02/13/2022 16:34:06 02/14/20 22 02/13/2022 CBC/C OMPLE TE BLD COUNT W/DIF F lymphocytes 21.6 % 16.0-4 7.0 Not Available [facility] (Lab) [address] [place], [address], 02/13/2022 16:34:06 02/14/20 22 02/13/2022 CBC/C OMPLE TE BLD COUNT W/DIF F monocytes 4.2 % 5.0-12 .0 low Not Available [facility] (Lab) [address] [place], [address], 02/13/2022 16:34:06 02/14/20 22 02/13/2022 CBC/C OMPLE TE BLD COUNT W/DIF F eosinophils 0.9 % 1.0-7. 0 low Not Available [facility] (Lab) [address] [place], [address], 02/13/2022 16:34:06 02/14/20 22 02/13/2022 CBC/C OMPLE TE BLD COUNT W/DIF F basophils 0.6 % 0.0-2. 0 Not Available [facility] (Lab) [address] [place], [address], 02/13/2022 16:34:06 02/14/20 22 02/13/2022 CBC/C OMPLE TE BLD COUNT W/DIF F immature granulocytes 0.4 % 0.00-0 .50 Not Available [facility] (Lab) [address] [place], [address], 02/13/2022 16:34:06 02/14/20 22 02/13/2022 CBC/C OMPLE TE BLD COUNT W/DIF F neutrophils, absolute count 7.52 x10'3 /uL 1.5-8. 0 Not Available [facility] (Lab) [address] [place], [address], 02/13/2022 16:34:06 02/14/20 22 02/13/2022 CBC/C OMPLE TE BLD COUNT W/DIF F lymphocytes, absolute count 2.25 x10'3 /uL 1.07-3 .43 Not Available [facility] (Lab) [address] [place], [address], 02/13/2022 16:34:06 02/14/20 22 02/13/2022 CBC/C OMPLE TE BLD COUNT W/DIF F monocytes, absolute count 0.44 x10'3 /uL 0.29-0 .99 Not Available [facility] (Lab) [address] [place], [address], 02/13/2022 16:34:06 02/14/20 22 02/13/2022 CBC/C OMPLE TE BLD COUNT W/DIF F eosinophils, absolute count 0.09 x10'3 /uL 0.02-0 .53 Not Available [facility] (Lab) [address] [place], [address], 02/13/2022 16:34:06 02/14/20 22 02/13/2022 CBC/C OMPLE TE BLD COUNT W/DIF F basophils, absolute count 0.06 x10'3 /uL 0.01-0 .08 Not Available [facility] (Lab) [address] [place], [address], 02/13/2022 16:34:06 02/14/20 22 02/13/2022 CBC/C OMPLE TE BLD COUNT W/DIF F immature granulocytes ,absolute 0.04 x10'3 /uL 0.00-0 .05 Not Available [facility] (Lab) [address] [place], [address], 02/13/2022 16:34:06 02/14/20 22 02/13/2022 CBC/C OMPLE TE BLD COUNT W/DIF F nucleated red blood cells 0.0 % -0 Not Available [facility] (Lab) [address] [place], [address], 02/13/2022 16:34:06 02/14/20 22 02/13/2022 CBC/C OMPLE TE BLD COUNT W/DIF F NRBC# 0.00 x10'3 /uL Not Available [facility] (Lab) [address] [place], [address], 02/13/2022 16:34:06 06/28/20 23 06/28/2023 CBC/C OMPLE TE BLD COUNT W/DIF F white blood cells 10.2 x10'3 /uL 4.2-10 .8 Not Available [facility] (Lab) [address] [place], [address], 06/28/2023 18:19:35 06/28/20 23 06/28/2023 CBC/C OMPLE TE BLD COUNT W/DIF F red blood cells 5.36 x10'6 /uL 3.80-5 .20 high Not Available [facility] (Lab) [address] [place], [address], 06/28/2023 18:19:35 06/28/20 23 06/28/2023 CBC/C OMPLE TE BLD COUNT W/DIF F hemoglobin 15.4 g/dL 12.0-1 5.6 Not Available [facility] (Lab) [address] [place], [address], 06/28/2023 18:19:35 06/28/20 23 06/28/2023 CBC/C OMPLE TE BLD COUNT W/DIF F hematocrit 48.4 % 35.7-4 5.7 high Not Available [facility] (Lab) [address] [place], [address], 06/28/2023 18:19:35 06/28/20 23 06/28/2023 CBC/C OMPLE TE BLD COUNT W/DIF F mean red cell volume 90.3 fL 82.0-9 9.0 Not Available [facility] (Lab) [address] [place], [address], 06/28/2023 18:19:35 06/28/20 23 06/28/2023 CBC/C OMPLE TE BLD COUNT W/DIF F mean red cell hemoglobin 28.7 pg 27.0-3 3.0 Not Available [facility] (Lab) [address] [place], [address], 06/28/2023 18:19:35 06/28/20 23 06/28/2023 CBC/C OMPLE TE BLD COUNT W/DIF F mean RBC HGB concentratio n 31.8 g/dL 31.0-3 6.0 Not Available [facility] (Lab) [address] [place], [address], 06/28/2023 18:19:35 06/28/2006/28/2023 CBC/C OMPLE TE BLD COUNT W/DIF F red cell distribution width 13.5 % 11.8-1 5.5 Not Available [facility] (Lab) [address] [place], [address], 06/28/2023 18:19:35 06/28/2006/28/2023 CBC/C OMPLE TE BLD COUNT W/DIF F platelets 332 x10'3 /uL 150-40 0 Not Available [facility] (Lab) [address] [place], [address], 06/28/2023 18:19:35 06/28/2006/28/2023 CBC/C OMPLE TE BLD COUNT W/DIF F mean platelet volume 10.2 fL 9.0-12 .4 Not Available [facility] (Lab) [address] [place], [address], 06/28/2023 18:19:35 06/28/20 23 06/28/2023 CBC/C OMPLE TE BLD COUNT W/DIF F neutrophils 66.9 % 39.0-7 2.0 Not Available [facility] (Lab) [address] [place], [address], 06/28/2023 18:19:35 06/28/2006/28/2023 CBC/C OMPLE TE BLD COUNT W/DIF F lymphocytes 23.3 % 16.0-4 7.0 Not Available [facility] (Lab) [address] [place], [address], 06/28/2023 18:19:35 06/28/2006/28/2023 CBC/C OMPLE TE BLD COUNT W/DIF F monocytes 7.9 % 5.0-12 .0 Not Available [facility] (Lab) [address] [place], [address], 06/28/2023 18:19:35 06/28/2006/28/2023 CBC/C OMPLE TE BLD COUNT W/DIF F eosinophils 0.9 % 1.0-7. 0 low Not Available [facility] (Lab) [address] [place], [address], 06/28/2023 18:19:35 06/28/2006/28/2023 CBC/C OMPLE TE BLD COUNT W/DIF F basophils 0.6 % 0.0-2. 0 Not Available [facility] (Lab) [address] [place], [address], 06/28/2023 18:19:35 06/28/2006/28/2023 CBC/C OMPLE TE BLD COUNT W/DIF F immature granulocytes 0.4 % 0.00-0 .50 Not Available [facility] (Lab) [address] [place], [address], 06/28/2023 18:19:35 06/28/20 23 06/28/2023 CBC/C OMPLE TE BLD COUNT W/DIF F neutrophils, absolute count 6.85 x10'3 /uL 1.5-8. 0 Not Available [facility] (Lab) [address] [place], [address], 06/28/2023 18:19:35 06/28/2006/28/2023 CBC/C OMPLE TE BLD COUNT W/DIF F lymphocytes, absolute count 2.38 x10'3 /uL 1.07-3 .43 Not Available [facility] (Lab) [address] [place], [address], 06/28/2023 18:19:35 06/28/20 23 06/28/2023 CBC/C OMPLE TE BLD COUNT W/DIF F monocytes, absolute count 0.81 x10'3 /uL 0.29-0 .99 Not Available [facility] (Lab) [address] [place], [address], 06/28/2023 18:19:35 06/28/2006/28/2023 CBC/C OMPLE TE BLD COUNT W/DIF F eosinophils, absolute count 0.09 x10'3 /uL 0.02-0 .53 Not Available [facility] (Lab) [address] [place], [address], 06/28/2023 18:19:35 06/28/20 23 06/28/2023 CBC/C OMPLE TE BLD COUNT W/DIF F basophils, absolute count 0.06 x10'3 /uL 0.01-0 .08 Not Available [facility] (Lab) [address] [place], [address], 06/28/2023 18:19:35 06/28/20 23 06/28/2023 CBC/C OMPLE TE BLD COUNT W/DIF F immature granulocytes ,absolute 0.04 x10'3 /uL 0.00-0 .05 Not Available [facility] (Lab) [address] [place], [address], 06/28/2023 18:19:35 06/28/20 23 06/28/2023 CBC/C OMPLE TE BLD COUNT W/DIF F nucleated red blood cells 0.0 % -0 Not Available [facility] (Lab) [address] [facility] [place], [address], 06/28/2023 18:19:35 06/28/20 23 06/28/2023 CBC/C OMPLE TE BLD COUNT W/DIF F NRBC# 0.00 x10'3 /uL Not Available [facility] (Lab) [address] [place], [address], 06/28/2023 18:19:35 06/28/20 23 06/28/2023 URINE MICRO SCOPI C EXAM/ IRIS white blood cells 0-8 /i??h pfi?? 0-8 Not Available [facility] (Lab) [address] [place], [address], 06/28/2023 18:35:27 06/28/2006/28/2023 URINE MICRO SCOPI C EXAM/ IRIS red blood cells 0-4 /i??h pfi?? 0-4 Not Available [facility] (Lab) [address] [place], [address], 06/28/2023 18:35:27 06/28/20 23 06/28/2023 URINE MICRO SCOPI C EXAM/ IRIS bacteria MODERA TE abnormal Not Available [facility] (Lab) [address] [place], [address], 06/28/2023 18:35:27 06/28/20 23 06/28/2023 URINE MICRO SCOPI C EXAM/ IRIS mucous OCCASI ONAL /i??l pfi?? abnormal Not Available [facility] (Lab) [address] [place], [address], 06/28/2023 18:35:27 06/28/20 23 06/28/2023 URINE MICRO SCOPI C EXAM/ IRIS squamous epithelial MANY /i??l pfi?? abnormal Not Available [facility] (Lab) [address] [place], [address], 06/28/2023 18:35:27 06/28/2006/28/2023 LIPID PANEL cholesterol 274 mg/dL 140-19 9 high NIH TONI NSUS RECOM MENDA TION FOR MERCEDES STERO L: ADULT CHILD LOW RISK: <200 <170 BORDE RLINE : <200- 239 ----- HIGH RISK: >240 >200 Not Available [facility] (Lab) [address] [place], [address], 06/28/2023 19:06:36 06/28/2006/28/2023 LIPID PANEL triglyceride s 206 mg/dL 0-150 high NIH TONI NSUS REPOR T RECOM MENDA TION FOR TRIGL YCERI ASHLEY: ADULT CHILD LOW RISK: <150 ----- BODER LINE: 150-1 99 ----- HIGH RISK: >200 ----- Not Available [facility] (Lab) [address] [place], [address], 06/28/2023 19:06:36 06/28/2006/28/2023 LIPID PANEL HDL cholesterol 49 mg/dL 40- Not Available [facility] (Lab) [address] [place], [address], 06/28/2023 19:06:36 06/28/20 23 06/28/2023 LIPID PANEL LDL cholesterol, calculated 184 mg/dL 0-130 high NIH TONI NSUS REPOR T RECOM MENDA TIONS FOR LDL: ADULT CHILD LOW RISK <130 <110 (OPTI MAL LDL) <100 ----- BORDE RLINE : 130-1 59 ----- HIGH RISK: >160 >130 A TRIGL YCERI DE RESUL T >400 INVAL IDATE S THE CALCU LATIO N FOR LDL FRACT IONAT ION - THE LDL RESUL T WILL NOT BE REPOR CHETAN. Not Available [facility] (Lab) [address] [place], [address], 06/28/2023 19:06:36 06/28/20 23 06/28/2023 COMPR EHENS SARAH METAB OLIC PANEL sodium 136 mmol/ L 137-14 5 low Not Available [facility] (Lab) [address] [place], [address], 06/28/2023 19:06:51 06/28/2006/28/2023 COMPR EHENS SARAH METAB OLIC PANEL potassium 4.4 mmol/ L 3.5-5. 1 Not Available [facility] (Lab) [address] [place], [address], 06/28/2023 19:06:51 06/28/20 23 06/28/2023 COMPR EHENS SARAH METAB OLIC PANEL chloride 99 mmol/ L 98-107 Not Available [facility] (Lab) [address] [place], [address], 06/28/2023 19:06:51 06/28/20 23 06/28/2023 COMPR EHENS SARAH METAB OLIC PANEL carbon dioxide 29 mmol/ L 22-30 Not Available [facility] (Lab) [address] [place], [address], 06/28/2023 19:06:51 06/28/20 23 06/28/2023 COMPR EHENS SARAH METAB OLIC PANEL anion gap 12.4 mmol/ L 14-22 low Not Available [facility] (Lab) [address] [place], [address], 06/28/2023 19:06:51 06/28/20 23 06/28/2023 COMPR EHENS SARAH METAB OLIC PANEL glucose 88 mg/dL 70-99 Not Available [facility] (Lab) [address] [place], [address], 06/28/2023 19:06:51 06/28/20 23 06/28/2023 COMPR EHENS SARAH METAB OLIC PANEL BUN 21 mg/dL 8-19 high Not Available [facility] (Lab) [address] [place], [address], 06/28/2023 19:06:51 06/28/20 23 06/28/2023 COMPR EHENS SARAH METAB OLIC PANEL creatinine 1.00 mg/dL 0.66-1 .25 Not Available [facility] (Lab) [address] [place], [address], 06/28/2023 19:06:51 06/28/20 23 06/28/2023 COMPR EHENS SARAH METAB OLIC PANEL GFR 58 Refer ence Range : [place] GFR Healt hy Adult : >60 mL/mi n/1.7 3 m2 Chron ic Kidne y Disea se: 15-60 mL/mi n/1.7 3 m2 Kidne y Failu re: <15/m L/min /1.73 m2 www.n iddk. nih.g ov The MDRD study equat ion has not been valid ated in child calixto <18 years of age; pregn ant women ; the elder ly >85 years of age; or in some racia l or ethni c subgr oups, such as Hispa nics. Outsi de the valid ated davi eters , estim ated GFR is less accur ate, requi ring clini edmond judgm ent on a case- by-ca se basis . Clini edmond inter preta tion for other races and ages must be made by the clini denton. The MDRD study equat ion has not been valid ated for the evalu ation of serum creat inine relat ed to nutri latrell l statu s or medic ation usage . For perso ns <18 years of age, a pedia tric GFR calcu lator is avail able on the [facility] websi te: https :[email or web address] abbott.long jacinto/pr ofess ional s/kdo qi/gf r_cal culat or Not Available [facility] (Lab) [address] [place], [address], 06/28/2023 19:06:51 06/28/2006/28/2023 COMPR EHENS SARAH METAB OLIC PANEL alkaline phosphatase 72 U/L 38-126 Not Available [facility] (Lab) [address] [place], [address], 06/28/2023 19:06:51 06/28/2006/28/2023 COMPR EHENS SARAH METAB OLIC PANEL alanine aminotransfe rase 24 U/L 0-35 Not Available [facility] (Lab) [address] [place], [address], 06/28/2023 19:06:51 06/28/20 23 06/28/2023 COMPR EHENS SARAH METAB OLIC PANEL aspartate aminotransfe rase 20 U/L 15-37 Not Available [facility] (Lab) [address] [place], [address], 06/28/2023 19:06:51 06/28/2006/28/2023 COMPR EHENS SARAH METAB OLIC PANEL bilirubin, total 0.20 mg/dL 0.20-1 .30 Not Available [facility] (Lab) [address] [place], [address], 06/28/2023 19:06:51 06/28/2006/28/2023 COMPR EHENS SARAH METAB OLIC PANEL calcium 10.3 mg/dL 8.4-10 .2 high Not Available [facility] (Lab) [address] [place], [address], 06/28/2023 19:06:51 06/28/20 23 06/28/2023 COMPR EHENS SARAH METAB OLIC PANEL total protein 7.6 g/dL 6.3-8. 2 Not Available [facility] (Lab) [address] [place], [address], 06/28/2023 19:06:51 06/28/20 23 06/28/2023 COMPR EHENS SARAH METAB OLIC PANEL albumin 4.6 g/dL 3.4-5. 0 Not Available [facility] (Lab) [address] [place], [address], 06/28/2023 19:06:51 06/28/20 23 06/28/2023 COMPR EHENS SARAH METAB OLIC PANEL globulin 3.0 g/dL 2.6-4. 2 Not Available [facility] (Lab) [address] [place], [address], 06/28/2023 19:06:51 06/28/20 23 06/28/2023 COMPR EHENS SARAH METAB OLIC PANEL A/G ratio 1.5 ratio 1.0-2. 0 Not Available [facility] (Lab) [address] [place], [address], 06/28/2023 19:06:51 04/22/20 24 04/22/2024 CBC/C OMPLE TE BLD COUNT W/DIF F white blood cells 7.4 x10'3 /uL 4.2-10 .8 Not Available [facility] (Lab) [address] [place], [address], 04/22/2024 11:05:39 04/22/20 24 04/22/2024 CBC/C OMPLE TE BLD COUNT W/DIF F red blood cells 5.21 x10'6 /uL 3.80-5 .20 high Not Available [facility] (Lab) [address] [place], [address], 04/22/2024 11:05:39 04/22/20 24 04/22/2024 CBC/C OMPLE TE BLD COUNT W/DIF F hemoglobin 15.1 g/dL 12.0-1 5.6 Not Available [facility] (Lab) [address] [place], [address], 04/22/2024 11:05:39 04/22/20 24 04/22/2024 CBC/C OMPLE TE BLD COUNT W/DIF F hematocrit 47.1 % 35.7-4 5.7 high Not Available [facility] (Lab) [address] [place], [address], 04/22/2024 11:05:39 04/22/20 24 04/22/2024 CBC/C OMPLE TE BLD COUNT W/DIF F mean red cell volume 90.4 fL 82.0-9 9.0 Not Available [facility] (Lab) [address] [place], [address], 04/22/2024 11:05:39 04/22/20 24 04/22/2024 CBC/C OMPLE TE BLD COUNT W/DIF F mean red cell hemoglobin 29.0 pg 27.0-3 3.0 Not Available [facility] (Lab) [address] [place], [address], 04/22/2024 11:05:39 04/22/20 24 04/22/2024 CBC/C OMPLE TE BLD COUNT W/DIF F mean RBC HGB concentratio n 32.1 g/dL 31.0-3 6.0 Not Available [facility] (Lab) [address] [place], [address], 04/22/2024 11:05:39 04/22/20 24 04/22/2024 CBC/C OMPLE TE BLD COUNT W/DIF F red cell distribution width 13.8 % 11.8-1 5.5 Not Available [facility] (Lab) [address] [place], [address], 04/22/2024 11:05:39 04/22/20 24 04/22/2024 CBC/C OMPLE TE BLD COUNT W/DIF F platelets 327 x10'3 /uL 150-40 0 Not Available [facility] (Lab) [address] [place], [address], 04/22/2024 11:05:39 04/22/20 24 04/22/2024 CBC/C OMPLE TE BLD COUNT W/DIF F mean platelet volume 10.7 fL 9.0-12 .4 Not Available [facility] (Lab) [address] [place], [address], 04/22/2024 11:05:39 04/22/20 24 04/22/2024 CBC/C OMPLE TE BLD COUNT W/DIF F neutrophils 62.1 % 39.0-7 2.0 Not Available [facility] (Lab) [address] [place], [address], 04/22/2024 11:05:39 04/22/20 24 04/22/2024 CBC/C OMPLE TE BLD COUNT W/DIF F lymphocytes 28.2 % 16.0-4 7.0 Not Available [facility] (Lab) [address] [place], [address], 04/22/2024 11:05:39 04/22/20 24 04/22/2024 CBC/C OMPLE TE BLD COUNT W/DIF F monocytes 7.6 % 5.0-12 .0 Not Available [facility] (Lab) [address] [place], [address], 04/22/2024 11:05:39 04/22/20 24 04/22/2024 CBC/C OMPLE TE BLD COUNT W/DIF F eosinophils 1.2 % 1.0-7. 0 Not Available [facility] (Lab) [address] [place], [address], 04/22/2024 11:05:39 04/22/20 24 04/22/2024 CBC/C OMPLE TE BLD COUNT W/DIF F basophils 0.5 % 0.0-2. 0 Not Available [facility] (Lab) [address] [place], [address], 04/22/2024 11:05:39 04/22/20 24 04/22/2024 CBC/C OMPLE TE BLD COUNT W/DIF F immature granulocytes 0.4 % 0.00-0 .50 Not Available [facility] (Lab) [address] [place], [address], 04/22/2024 11:05:39 04/22/20 24 04/22/2024 CBC/C OMPLE TE BLD COUNT W/DIF F neutrophils, absolute count 4.58 x10'3 /uL 1.5-8. 0 Not Available [facility] (Lab) [address] [place], [address], 04/22/2024 11:05:39 04/22/20 24 04/22/2024 CBC/C OMPLE TE BLD COUNT W/DIF F lymphocytes, absolute count 2.08 x10'3 /uL 1.07-3 .43 Not Available [facility] (Lab) [address] [place], [address], 04/22/2024 11:05:39 04/22/20 24 04/22/2024 CBC/C OMPLE TE BLD COUNT W/DIF F monocytes, absolute count 0.56 x10'3 /uL 0.29-0 .99 Not Available [facility] (Lab) [address] [place], [address], 04/22/2024 11:05:39 04/22/20 24 04/22/2024 CBC/C OMPLE TE BLD COUNT W/DIF F eosinophils, absolute count 0.09 x10'3 /uL 0.02-0 .53 Not Available [facility] (Lab) [address] [place], [address], 04/22/2024 11:05:39 04/22/20 24 04/22/2024 CBC/C OMPLE TE BLD COUNT W/DIF F basophils, absolute count 0.04 x10'3 /uL 0.01-0 .08 Not Available [facility] (Lab) [address] [place], [address], 04/22/2024 11:05:39 04/22/20 24 04/22/2024 CBC/C OMPLE TE BLD COUNT W/DIF F immature granulocytes ,absolute 0.03 x10'3 /uL 0.00-0 .05 Not Available [facility] (Lab) [address] [place], [address], 04/22/2024 11:05:39 04/22/20 24 04/22/2024 CBC/C OMPLE TE BLD COUNT W/DIF F nucleated red blood cells 0.0 % -0 Not Available [facility] (Lab) [address] [place], [address], 04/22/2024 11:05:39 04/22/20 24 04/22/2024 CBC/C OMPLE TE BLD COUNT W/DIF F NRBC# 0.00 x10'3 /uL Not Available [facility] (Lab) [address] [place], [address], 04/22/2024 11:05:39 04/22/20 24 04/22/2024 COMPR EHENS SARAH METAB OLIC PANEL sodium 137 mmol/ L 137-14 5 Not Available [facility] (Lab) [address] [place], [address], 04/22/2024 11:29:38 04/22/20 24 04/22/2024 COMPR EHENS SARAH METAB OLIC PANEL potassium 4.6 mmol/ L 3.5-5. 1 Not Available [facility] (Lab) [address] [place], [address], 04/22/2024 11:29:38 04/22/20 24 04/22/2024 COMPR EHENS SARAH METAB OLIC PANEL chloride 106 mmol/ L 98-107 Not Available [facility] (Lab) [address] [place], [address], 04/22/2024 11:29:38 04/22/20 24 04/22/2024 COMPR EHENS SARAH METAB OLIC PANEL carbon dioxide 27 mmol/ L 22-30 Not Available [facility] (Lab) [address] [place], [address], 04/22/2024 11:29:38 04/22/20 24 04/22/2024 COMPR EHENS SARAH METAB OLIC PANEL anion gap 8.6 mmol/ L 14-22 low Not Available [facility] (Lab) [address] [place], [address], 04/22/2024 11:29:38 04/22/20 24 04/22/2024 COMPR EHENS SARAH METAB OLIC PANEL glucose 114 mg/dL 70-99 high Not Available [facility] (Lab) [address] [place], [address], 04/22/2024 11:29:38 04/22/20 24 04/22/2024 COMPR EHENS SARAH METAB OLIC PANEL BUN 21 mg/dL 8-19 high Not Available [facility] (Lab) [address] [place], [address], 04/22/2024 11:29:38 04/22/20 24 04/22/2024 COMPR EHENS SARAH METAB OLIC PANEL creatinine 0.97 mg/dL 0.66-1 .25 Not Available [facility] (Lab) [address] [place], [address], 04/22/2024 11:29:38 04/22/20 24 04/22/2024 COMPR EHENS SARAH METAB OLIC PANEL GFR 60 Refer ence Range : [place] GFR Healt hy Adult : >60 mL/mi n/1.7 3 m2 Chron ic Kidne y Disea se: 15-60 mL/mi n/1.7 3 m2 Kidne y Failu re: <15/m L/min /1.73 m2 www.n iddk. nih.g ov The MDRD study equat ion has not been valid ated in child calixto <18 years of age; pregn ant women ; the elder ly >85 years of age; or in some racia l or ethni c subgr oups, such as Hispa nics. Outsi de the valid ated davi eters , estim ated GFR is less accur ate, requi ring clini edmond judgm ent on a case- by-ca se basis . Clini edmond inter preta tion for other races and ages must be made by the clini denton. The MDRD study equat ion has not been valid ated for the evalu ation of serum creat inine relat ed to nutri latrell l statu s or medic ation usage . For perso ns <18 years of age, a pedia tric GFR calcu lator is avail able on the [facility] websi te: https :[email or web address] lares.alexa abbott.o ophelia/pr ofess ional s/kdo qi/gf r_cal culat or Not Available [facility] (Lab) [address] [place], [address], 04/22/2024 11:29:38 04/22/20 24 04/22/2024 COMPR EHENS SARAH METAB OLIC PANEL alkaline phosphatase 90 U/L 38-126 Not Available [facility] (Lab) [address] [place], [address], 04/22/2024 11:29:38 04/22/20 24 04/22/2024 COMPR EHENS SARAH METAB OLIC PANEL alanine aminotransfe rase 22 U/L 0-35 Not Available [facility] (Lab) [address] [place], [address], 04/22/2024 11:29:38 04/22/20 24 04/22/2024 COMPR EHENS SARAH METAB OLIC PANEL aspartate aminotransfe rase 23 U/L 15-37 Not Available [facility] (Lab) [address] [place], [address], 04/22/2024 11:29:38 04/22/20 24 04/22/2024 COMPR EHENS SARAH METAB OLIC PANEL bilirubin, total 0.70 mg/dL 0.20-1 .30 Not Available [facility] (Lab) [address] [place], [address], 04/22/2024 11:29:38 04/22/20 24 04/22/2024 COMPR EHENS SARAH METAB OLIC PANEL calcium 9.4 mg/dL 8.4-10 .2 Not Available [facility] (Lab) [address] [place], [address], 04/22/2024 11:29:38 04/22/20 24 04/22/2024 COMPR EHENS SARAH METAB OLIC PANEL total protein 7.1 g/dL 6.3-8. 2 Not Available [facility] (Lab) [address] [place], [address], 04/22/2024 11:29:38 04/22/20 24 04/22/2024 COMPR EHENS SARAH METAB OLIC PANEL albumin 4.4 g/dL 3.4-5. 0 Not Available [facility] (Lab) [address] [place], [address], 04/22/2024 11:29:38 04/22/20 24 04/22/2024 COMPR EHENS SARAH METAB OLIC PANEL globulin 2.7 g/dL 2.6-4. 2 Not Available [facility] (Lab) [address] [place], [address], 04/22/2024 11:29:38 04/22/20 24 04/22/2024 COMPR EHENS SARAH METAB OLIC PANEL A/G ratio 1.6 ratio 1.0-2. 0 Not Available [facility] (Lab) [address] [place], [address], 04/22/2024 11:29:38 04/22/20 24 04/22/2024 LIPID PANEL cholesterol 217 mg/dL 140-19 9 high NIH TONI NSUS RECOM MENDA TION FOR MERCEDES STERO L: ADULT CHILD LOW RISK: <200 <170 BORDE RLINE : <200- 239 ----- HIGH RISK: >240 >200 Not Available [facility] (Lab) [address] [place], [address], 04/22/2024 11:29:44 04/22/20 24 04/22/2024 LIPID PANEL triglyceride s 114 mg/dL 0-150 NIH TONI NSUS REPOR T RECOM MENDA TION FOR TRIGL YCERI ASHLEY: ADULT CHILD LOW RISK: <150 ----- BODER LINE: 150-1 99 ----- HIGH RISK: >200 ----- Not Available [facility] (Lab) [address] [place], [address], 04/22/2024 11:29:44 04/22/20 24 04/22/2024 LIPID PANEL HDL cholesterol 48 mg/dL 40- Not Available [facility] (Lab) [address] [place], [address], 04/22/2024 11:29:44 04/22/20 24 04/22/2024 LIPID PANEL LDL cholesterol, calculated 146 mg/dL 0-130 high NIH TONI NSUS REPOR T RECOM MENDA TIONS FOR LDL: ADULT CHILD LOW RISK <130 <110 (OPTI MAL LDL) <100 ----- BORDE RLINE : 130-1 59 ----- HIGH RISK: >160 >130 A TRIGL YCERI DE RESUL T >400 INVAL IDATE S THE CALCU LATIO N FOR LDL FRACT IONAT ION - THE LDL RESUL T WILL NOT BE REPOR CHETAN. Not Available [facility] (Lab) [address] [place], [address], 04/22/2024 11:29:44 04/22/20 24 04/22/2024 T3 FREE free T3 5.1 pg/mL 2.77-5 .27 Not Available [facility] (Lab) [address] [place], [address], 04/22/2024 11:46:35 04/22/20 24 04/22/2024 T4 FREE free T4 1.28 NG/dL 0.78-2 .19 Not Available [facility] (Lab) [address] [place], [address], 04/22/2024 11:46:44 04/22/20 24 04/22/2024 TSH thyroid-stim ulating hormone 1.680 uIU/m L 0.465- 4.680 Not Available [facility] (Lab) [address] [place], [address], 04/22/2024 12:06:02 04/22/20 24 04/22/2024 HEMOG LOBIN A1C HA1C 5.8 % 4.0-6. 0 Diabe archie Scree erma Crite aurora: <5.7% Consi stent with absen ce of diabe archie 5.7-6 .4% Consi stent with incre ased risk for diabe archie (pred iabet es) >OR=6 .5% Consi stent with diabe archie REFER ENCE: Diabe archie Care 2016, 39(Roberts ppl.1 ):s13 -s22 Not Available [facility] (Lab) [address] [place], [address], 04/22/2024 14:37:27 06/10/20 24 06/10/2024 URINA LYSIS COMPL ETE/I RIS W/RFX color YELLOW Not Available [facility] (Lab) [address] [place], [address], 06/10/2024 10:07:24 06/10/20 24 06/10/2024 URINA LYSIS COMPL ETE/I RIS W/RFX appear TURBID abnormal Not Available [facility] (Lab) [address] [place], [address], 06/10/2024 10:07:24 06/10/20 24 06/10/2024 URINA LYSIS COMPL ETE/I RIS W/RFX specific gravity 1.025 1.001- 1.030 Not Available [facility] (Lab) [address] [place], [address], 06/10/2024 10:07:24 06/10/20 24 06/10/2024 URINA LYSIS COMPL ETE/I RIS W/RFX pH 5.0 pH_un its 5.0-9. 0 Not Available [facility] (Lab) [address] [place], [address], 06/10/2024 10:07:24 06/10/20 24 06/10/2024 URINA LYSIS COMPL ETE/I RIS W/RFX leukocytes 75 inocencia/u L negati ve- abnormal Not Available [facility] (Lab) [address] [place], [address], 06/10/2024 10:07:24 06/10/20 24 06/10/2024 URINA LYSIS COMPL ETE/I RIS W/RFX nitrite NEGATI VE negati ve- Not Available [facility] (Lab) [address] [place], [address], 06/10/2024 10:07:24 06/10/20 24 06/10/2024 URINA LYSIS COMPL ETE/I RIS W/RFX protein 10 mg/dL negati ve- abnormal Not Available [facility] (Lab) [address] [place], [address], 06/10/2024 10:07:24 06/10/20 24 06/10/2024 URINA LYSIS COMPL ETE/I RIS W/RFX glucose NORMAL mg/dL normal - Not Available [facility] (Lab) [address] [place], [address], 06/10/2024 10:07:24 06/10/20 24 06/10/2024 URINA LYSIS COMPL ETE/I RIS W/RFX ketones NEGATI VE mg/dL negati ve- Not Available [facility] (Lab) [address] [place], [address], 06/10/2024 10:07:24 06/10/20 24 06/10/2024 URINA LYSIS COMPL ETE/I RIS W/RFX urobilinogen NORMAL mg/dL normal - Not Available [facility] (Lab) [address] [place], [address], 06/10/2024 10:07:24 06/10/20 24 06/10/2024 URINA LYSIS COMPL ETE/I RIS W/RFX bilirubin NEGATI VE mg/dL negati ve- Not Available [facility] (Lab) [address] [place], [address], 06/10/2024 10:07:24 06/10/20 24 06/10/2024 URINA LYSIS COMPL ETE/I RIS W/RFX blood 0.03 mg/dL negati ve- abnormal Not Available [facility] (Lab) [address] [place], [address], 06/10/2024 10:07:24 06/10/2006/10/2024 URINA LYSIS COMPL ETE/I RIS W/RFX white blood cells 9-20 /i??h pfi?? 0-8 abnormal Not Available [facility] (Lab) [address] [place], [address], 06/10/2024 10:07:24 06/10/20 24 06/10/2024 URINA LYSIS COMPL ETE/I RIS W/RFX red blood cells 0-4 /i??h pfi?? 0-4 Not Available [facility] (Lab) [address] [place], [address], 06/10/2024 10:07:24 06/10/20 24 06/10/2024 URINA LYSIS COMPL ETE/I RIS W/RFX bacteria OCCASI ONAL abnormal Not Available [facility] (Lab) [address] [place], [address], 06/10/2024 10:07:24 06/10/20 24 06/10/2024 URINA LYSIS COMPL ETE/I RIS W/RFX mucous OCCASI ONAL /i??l pfi?? abnormal Not Available [facility] (Lab) [address] [place], [address], 06/10/2024 10:07:24 06/10/20 24 06/10/2024 URINA LYSIS COMPL ETE/I RIS W/RFX squamous epithelial PACKED FIELD /i??l pfi?? abnormal Not Available [facility] (Lab) [address] [place], [address], 06/10/2024 10:07:24 07/15/20 21 07/15/2021 MRI, lumba r spine , w/o contr ast [facility] [address] [place], [place] [id number] Patien t Name: SUSANNAHQUEENIE CAMDEN Haskins Access ion #: [id number] Sex: F : 1969 10 Locati on: RAD Attend ing Physic theo: KAYLENE OSBORNE Orderi Physic theo: KAYLENE OSBORNE Exam Date: 2020 1:39 PM Exam Name: MRI L SPINE WO Admitt ing Diagno sis(es ): RADIOL OGY REPORT - FINAL EXAM: MRI L SPINE WO HISTOR Y: low back pain 51-yea r-old female with low back pain and sacroc occyge al pain, painfu l sittin g. COMPAR SIRIA: Lumbar spine radiog raphs dated 2020; lumbar spine MRI dated 2014 TECHNI QUE: Multip lanar multis equenc e noncon trast MR images of the lumbar spine were perfor med. FINDIN GS: No fractu re or listhe sis are identi fied in the lumbar spine. The conus termin ates at L1. L1-L2: No signif icant discop athy, centra l canal stenos is, or neural forami nal Page 1 of 3 [facility] Name: CAMDEN ALMEIDA Access ion #: [id number] Sex: F : 1969 10 Exam Date: 2020 1:39 PM Exam Name: MRI L SPINE WO Admitt ing Diagno sis(es ): stenos is bilate rally. L2-L3: No signif icant discop athy, centra l canal stenos is, or neural forami nal stenos is bilate rally. There is bilate ral facet hypert rophy. No signif icant discop athy, centra l canal stenos is, or neural forami nal stenos is bilate rally. There is bilate ral facet hypert rophy. L3-L4: There is a minima l circum ferent ial broad disc bulge. There is bilate ral facet hypert rophy. No signif icant centra l canal stenos is or neural forami nal stenos is bilate rally. L4-L5: There is a mild circum ferent ial broad disc bulge with endpla te hypert rophy. There is a superi mposed left forami nal disc hernia tion measur ing about 5 mm radial ly (image s 23-25, series 6; image 11, series 3), new versus prior MRI examin ation. There is bilate ral facet and ligame ntum flavum hypert rophy. No signif icant centra l canal stenos is. There is no signif icant neural forami nal stenos is bilate rally. L5-S1: No signif icant discop athy, centra l canal stenos is, or neural forami nal stenos is bilate rally. There is bilate ral facet hypert rophy. IMPRES JUAN: 1. No fractu re of the lumbar spine. 2. Degene rative disc diseas e and facet arthro emerald withou t high-g rade centra l canal stenos is or neural forami nal stenos is at any level in lumbar spine. 3. New left forami nal disc hernia tion L4-L5 as detail ed above. Create d and electr onical ly signed by: Page 2 of 3 [facility] Patien t Name: CAMDEN ALMEIDA Access ion #: [id number] Sex: F : 1969 9 Exam Date: 2020 1:39 PM Exam Name: MRI L SPINE WO Admitt ing Diagno sis(es ): Richard sánchez MD Signed Date: 2020 2:59 PM (CT) Dictat ed by: Richard sánchez MD DD: 2020 2:59 PM (CT) DT: 2020 2:59 PM (CT) Page 3 of 3 [id number] [facility] (Imaging) [address] [place], [address], 11/29/2022 02:51:52 01/21/20 22 01/18/2022 MAMMO , virgiee erma, digit al, bilat eral No observ ation record ed. [id number], [address], 11/29/2022 02:51:52 02/01/20 23 10/27/2022 MAMMO , scree erma, digit al, bilat eral No observ ation record ed. [email or web address] [address], [address], 06/29/2023 09:24:27 02/07/20 23 02/06/2023 LDCT, chest , for lung fanny ritchie [facility] [address] [place] [address] Britni t Name: CAMDEN ALMEIDA Access ion #: [id number] Sex: F : 1969 9 Locati on: RAD Attend ing Physic theo: KAYLENE OSBORNE Orderi ng Physic theo: KAYLENE OSBORNE Exam Date: 02/07/20 23 5:24 PM Exam Name: CT LOW DOSE CNCR SCREEN ING Admitt ing Diagno sis(es ): RADIOL OGY REPORT - FINAL EXAM: CT LOW DOSE CNCR SCREEN ING HISTOR Y: cancer screen ing 52-yea r-old female with lung cancer screen ing, former smoker ; patien t compla ins of chest pain and cough. COMPAR SIRIA: Chest x-ray dated 2016. TECHNI QUE: CT low dose lung screen ing protoc ol was utiliz ed. Noncon trast axial images of the chest were obtain ed using low dose comput erized tomogr aphy. Images were recons tructe d in meadows l, sagitt al, and axial planes . The images were review ed with lung window , soft tissue , and bone window settin gs. This CT exam was perfor med using one or more of the follow ing dose reduct ion techni ques: Automa chetan exposu re contro l, adjust ment of the mA and/or kV accord ing to patien t size, or use of iterat sarah recons tructi on techni que. Page 1 of 2 [facility] Britni t Name: CAMDEN ALMEIDA Access ion #: [id number] Sex: F : 1969 9 Exam Date: 02/07/20 23 5:24 PM Exam Name: CT LOW DOSE CNCR SCREEN ING Admitt ing Diagno sis(es ): FINDIN GS: There is a 4.5 mm right middle lobe noncal cified pulmon krish nodule (image 94, series 201). There is a 3 mm right lower lobe noncal cified pulmon krish nodule dl latera lly (image 111, series 201). There is a faint 3.5 mm noncal cified pulmon krish nodule in the lingul a (image 92, series 201). No consol idativ e infilt rates, pneumo thorax , pleura l effusi ons, or pulmon krish edema. No suspic ious medias tinal or axilla ry adenop athy. The heart is not enlarg ed. There are athero sclero tic calcif icatio ns of the left anteri or descen ding meadows ry artery . No thorac ic aortic aneury sm. 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 IMPRES JUAN: 1. Subcen timete r bilate ral noncal cified pulmon krish nodule s measur ing up to 4.5 mm in the right middle lobe. 2. Meadosw ry artery diseas e. Lung-R ADS 2. Benign . Contin ue annual screen ing with LDCT in 12 months . Create d and electr onical ly signed by: Richard sánchez MD Signed Date: 02/07/20 9:12 PM (CT) Dictat ed by: Richard sánchez MD (CT) (CT) Page 2 of [address] (Imaging) [address] [place], [address], 06/29/2023 09:24:34 01/21/20 24 01/21/2024 MRI, knee, w/o contr ast No observ ation record ed. [email or web address] [facility] [address] [place] [address] [address], [place], [address], 04/15/2024 10:07:26 Result Notes None recorded. Problems Name Problem SNOMED Code Status Onset Date Resolution Date Notes Provider Name and Address Organization Details Recorded Time Postoperat sarah visit 826499311 Active 2018 Not Available [facility] 3 06:52:46 Flank pain 757328740 Completed Not Available [facility] 3 02:45:50 Pure hyperchole sterolemia 242098033 Active 2016 Not Available [facility] 3 06:52:46 Low back pain 207140247 Active 2020 Not Available [facility] 3 06:52:46 Adnexal tenderness 215881559 Completed Not Available [facility] 3 02:45:51 Numbness of lower limb 090910033 Completed Not Available [facility] 3 02:45:51 Bronchitis 91715662 Completed Not Available [facility] 3 02:45:51 Blood in urine 51665909 Completed Not Available [facility] 3 02:45:51 Sinusitis 56910880 Completed Not Available [facility] 3 02:45:51 Hypertensi ve disorder 08449265 Active Not Available [facility] 3 06:52:46 Dysuria 17265873 Completed Not Available [facility] 3 02:45:51 Cough 19302611 Active 2021 Not Available [facility] 3 06:52:46 Essential hypertensi on 58859899 Active 2021 Not Available [facility] 3 06:52:46 Muscle pain 98816065 Active 2021 Not Available [facility] 3 06:52:46 Fatigue 27626683 Active 2021 Not Available [facility] 3 06:52:46 Breast lump 59393443 Active Not Available [facility] 3 06:52:46 Kidney stone 51337635 Active Not Available [facility] 3 06:52:46 Insect bite - wound 142178741 Active 2022 Not Available [facility] 3 06:52:46 Urinary tract infectious disease 13537511 Active 2022 Not Available [facility] 3 06:52:46 Problem Notes None recorded. Procedures Surgical History Date Name Laterality Status Provider Name and Address Organization Details Recorded Time 05/04/20 21 Colonoscopy completed Not Available [facility] 11/30/19 23 02:41:01 12/21/19 21 Date of Last Pap Smear completed Not Available [facility] 11/29/2022 02:40:59 11/25/19 20 Most Recent Mammogram completed Not Available [facility] 11/29/2022 02:40:59 12/02/19 11 [employer] Surgery completed Not Available [facility] 11/30/19 02:41:01 Orthopedic Surgery completed Not Available [facility] 11/29/2022 02:41:01 Tubal Ligation [facility] 11/29/2022 02:41:01 Tonsillectomy completed [facility] Available [facility] 11/29/2022 02:41:01 Imaging Results Imaging Date Name Status LastModified by Organiz ation Details LastModified Time 01/18/2022 MAMMO, screening, digital, bilateral completed [id number] [facility] [address] [place], [address], 11/29/2022 02:51:52 07/15/2021 MRI, lumbar spine, w/o contrast completed [id number] [facility] (Imaging) [address] [place], [address], 11/29/2022 02:51:52 10/27/2022 MAMMO, screening, digital, bilateral completed [email or web address] [facility] [address] [place], [address], 06/29/2023 09:24:27 02/06/2023 LDCT, chest, for lung cancer screening completed [email or web address] [facility] (Imaging) [address] [place], [address], 06/29/2023 09:24:34 01/21/2024 MRI, knee, w/o contrast completed [email or web address], [place], [address], 04/15/2024 10:07:26 Procedure Notes None recorded. Medical Equipment None Reported. Allergies Allergen ID Allergen Name Allergen Category Reaction Reaction Severity Criticality Documentation Date Start Date Code Code System Note Provider Name and Address Organization Details Recorded Time 3873 Iodine and/or iodine compound (substanc e) Not available Not available Not available Not available 11/29/2022 79427 6004 SNOMED Not Available [facility] 3 02:51:26 3874 Iodinated contrast media (substanc e) medicatio n hives Not available Not available 11/29/2022 05291 2004 SNOMED Not Available [facility] 3 02:51:26 Medications Name Sig Start Date Stop Date Status Note LastModified by Organization Details LastModified Time amoxicillin 500 mg capsule Take 1 capsule 3 times a day by oral route for 7 days. 10/24 completed Not Available Not Available Not Available prednisone 10 mg tablet Take by oral route. take [id number], 3b5ztjx, 6o6aavz active Not Available Not Available No t Available atorvastati n 20 mg tablet TAKE 1 TABLET BY MOUTH EVERY DAY active Not Available Not Available No t Available atorvastati n 10 mg tablet TAKE 1 TABLET BY MOUTH EVERY DAY 07/04 completed Not Available Not Available Not Available azithromyci n 250 mg tablet TAKE 2 TABLETS BY MOUTH FIRST DAY THEN TAKE 1 TABLET BY MOUTH EVERY DAY 08/04 completed Not Available Not Available Not Available ibuprofen 800 mg tablet Take 1 tablet 3 times a day by oral route with meals. 06/28 completed Not Available Not Available Not Available tizanidine 4 mg tablet Take 1 tablet every day by oral route at bedtime. 08/05 completed Not Available Not Available Not Available benzonatate 200 mg capsule Take 1 capsule 3 times a day by oral route for 7 days. active Not Available Not Available No t Available hydrocodone 5 mg-acetamin ophen 325 mg tablet Take 1 tablet every 8 hours by oral route as needed for 7 days. 10/24 completed Not Available Not Available Not Available meloxicam 15 mg tablet TAKE 1 TABLET BY MOUTH EVERY DAY active Not Available Not Available No t Available ondansetron HCl 4 mg tablet Take 1 tablet every 6 hours by oral route as needed. active Not Available Not Available No t Available prednisone 20 mg tablet 2 tablets daily x7 days active Not Available Not Available No t Available Diflucan 150 mg tablet Take 1 tablet by oral route as directed for 1 day. 12/02 completed Not Available Not Available Not Available ciprofloxac in 500 mg tablet TK 1 T PO Q 12 H FOR 7 DAYS 01/09 completed Not Available Not Available Not Available sulfamethox azole 800 mg-trimetho prim 160 mg tablet Take 1 tablet every 12 hours by oral route for 14 days. 07/09 completed Not Available Not Available Not Available butalbital- acetaminoph en-caffeine 50 mg-325 mg-40 mg tablet 05/17 completed Not Available Not Available Not Available Promethazin e VC-Codeine 6.25 mg-5 mg-10 mg/5 mL oral syrup TK 5 ML PO Q 4 H active Not Available Not Available No t Available oxycodone-a cetaminophe n 5 mg-325 mg tablet 10/24 completed Not Available Not Available Not Available tamsulosin 0.4 mg capsule TK 1 C PO QD FOR 30 DAYS active Not Available Not Available No t Available benzonatate 100 mg capsule Take 2 capsules 3 times a day by oral route. active Not Available Not Available No t Available cephalexin 500 mg capsule TAKE 1 CAPSULE BY MOUTH FOUR TIMES DAILY FOR 10 DAYS active Not Available Not Available No t Available lisinopril 10 mg tablet TAKE 1 TABLET BY MOUTH EVERY DAY active Not Available Not Available No t Available prednisone 50 mg tablet 04/17 completed Not Available Not Available Not Available etodolac 400 mg tablet Take 1 tablet twice a day by oral route for 30 days. active Not Available Not Available No t Available montelukast 10 mg tablet 10/24 completed Not Available Not Available Not Available ranitidine 150 mg capsule 10/24 completed Not Available Not Available Not Available lisinopril 10 mg-hydrochl orothiazide 12.5 mg tablet TAKE 1 TABLET BY MOUTH EVERY DAY active Not Available Not Available No t Available methylpredn isolone 4 mg tablets in a dose pack Take 1 dose pk by oral route as directed. active Not Available Not Available No t Available albuterol sulfate HFA 90 mcg/actuati on aerosol inhaler INHALE 2 PUFFS BY MOUTH FOUR TIMES DAILY active Not Available Not Available No t Available cefdinir 300 mg capsule Take 1 capsule twice a day by oral route for 7 days. active Not Available Not Available No t Available fluticasone propionate 50 mcg/actuati on nasal spray,suspe nsion [place] 2 sprays every day by intranasa l route in the evening. active Not Available Not Available No t Available escitalopra m 10 mg tablet 06/10 completed Not Available Not Available Not Available nitrofurant oin monohydrate /macrocryst als 100 mg capsule TAKE 1 CAPSULE BY MOUTH TWICE DAILY FOR 5 DAYS active Not Available Not Available No t Available Zyrtec 2020 active Not Available Not Available Not Avai lable hydrochloro thiazide 12.5 mg tablet TAKE 1 TABLET BY MOUTH EVERY DAY active Not Available Not Available No t Available peg 3350-electr olytes 236 gram-22.74 gram-6.74 gram-5.86 gram solution 05/17 completed Not Available Not Available Not Available [facility] with Large Mask U UTD PER ASTHMA [place] 10/24 completed Not Available Not Available Not Available Edarbyclor 40 mg-12.5 mg tablet TAKE 1 TABLET BY MOUTH EVERY DAY 05/10 completed Not Available Not Available Not Available Auvi-Q 0.3 mg/0.3 mL injection, auto-inject or 10/24 completed Not Available Not Available Not Available Uro-MP 118 mg-10 mg-40.8 mg-36 mg capsule TK 1 C PO BID PRN 06/10 completed Not Available Not Available Not Available Breo Ellipta 200 mcg-25 mcg/dose powder for inhalation INHALE 1 PUFF BY MOUTH EVERY DAY active Not Available Not Available No t Available Afluria Quad (PF) 60 mcg (15 mcg x 4)/0.5 mL IM syringe active Not Available Not Available N ot Available Flucelvax Quad (PF) 60 mcg (15 mcg x 4)/0.5 mL IM syringe [facility]ARMACY [facility] 01/28 completed Not Available Not Available Not Available Vitals Date Recorded Body height Body weight Body temperature Heart rate Oxygen saturation Oxygen saturation in Arterial blood by Pulse oximetry Systolic blood pressure Diastolic blood pressure Provider Name and Address Organization Details Last Updated DateTime 3 172.72 cm 905319. 65 g 97.8 [degF] 94 /min 98 % 98 % 112 mm[Hg] 80 mm[Hg] Kala Huang RN [place] - [place] [facility] 3 12:22:12 Date Recorded Body mass index (BMI) Body mass index (BMI) Body mass index (BMI) Body height Body height Body height Heart rate Heart rate Heart rate Body temperature Body temperature Body temperature Body weight Body weight Body weight Systolic blood pressure Diastolic blood pressure Systolic blood pressure Diastolic blood pressure Systolic blood pressure Diastolic blood pressure Provider Name and Address Organization Details Last Updated DateTime 3 39.8 kg/m2 39.5 kg/m2 39.8 kg/m2 172.72 cm 172.72 cm 172.72 cm 82 /min 194 /min 76 /min 96.6 [degF] 98.1 [degF] 98.3 [degF] 206087. 2 g 946735. 02 g 350101. 2 g 122 mm[Hg] 84 mm[Hg] 120 mm[Hg] 72 mm[Hg] 118 mm[Hg] 82 mm[Hg] Not Available [facility] 3 02:42:58 Date Recorded Body height Body mass index (BMI) Body weight Body temperature Heart rate Systolic blood pressure Diastolic blood pressure Provider Name and Address Organization Details Last Updated DateTime 3 172.72 cm 39.8 kg/m2 909019. 2 g 98.2 [degF] 83 /min 122 mm[Hg] 86 mm[Hg] ANURAG Lebron [employer] 3 17:12:54 Social History Question Answer Notes LastModified by Organization Details LastModified Time Tobacco Smoking Status Former Smoker quit 2001 INOCENCIO Zhang, [employer] 06/28/2023 15:53:37 Do You Have An Advance Directive? Yes [id number] Information not available 11/29/2022 What Is Your Level Of Alcohol Consumption? Occasional [id number] Information not available 11/29/2022 Do You Wear A Helmet When Biking? No Deos Not Bike [email or web address] Information not available 06/28/2023 What Is Your Level Of Caffeine Consumption? Moderate [id number] Information not available 11/29/2022 How Much Tobacco Do You Chew? None [id number] Information not available 11/29/2022 In The 14 Days Before Symptom Onset, Have You Had Close Contact With A Laboratory-confi rmed COVID-19 While That Case Was Ill? No [email or web address] Information not available 06/28/2023 In The 14 Days Before Symptom Onset, Have You Had Close Contact With A Person Who Is Under Investigation For COVID-19 While That Person Was Ill? No [email or web address] Information not available 06/28/2023 What Type Of Diet Are You Following? REGULAR [id number] Information not available 11/29/2022 Which Illicit Or Recreational Drugs Have You Used? None Information not available 06/28/2023 Do You Or Have You Ever Used E-cigarettes Or Vape? Never Used Electronic Cigarettes [email or web address] Information not available 06/28/2023 What Is The Highest Grade Or Level Of School You Have Completed Or The Highest Degree You Have Received? 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 No [email or web address] Information not available 06/28/2023 What Is The Fluoride Status Of Your Home? Unknown [email or web address] Information not available 06/28/2023 When Did You Quit Smoking? 17+yearssincelastci chaya [email or web address] Information not available 06/28/2023 Are There Any Guns Present In Your Home? Yes [email or web address] Information not available 06/28/2023 Do You Use Insect Repellent Routinely? No Information not available 06/28/2023 Where Do You Live? SingleLevelHouse Information not available 06/28/2023 Do You Have A Medical Power Of Apprenticeship Representative? Yes [email or web address] Information not available 06/28/2023 What Was The Date Of Your Most Recent Tobacco Screening? 06/28/2023 [email or web address] Information not available 06/28/2023 Have You Ever Been Counseled For Unhealthy Alcohol Use? No [email or web address] Information not available 06/28/2023 Do You Have Any Pets? Yes [email or web address] Information not available 06/28/2023 What Is Your Relationship Status? [id number] Information not available 11/29/2022 Do You Use Your Seat Belt Or Car Seat Routinely? Yes [email or web address] Information not available 06/28/2023 Do You Have Smoke And Carbon Monoxide Detectors In Your Home? Yes [email or web address] Information not available 06/28/2023 At What Age Did You Start Smoking Tobacco? 13 [email or web address] Information not available 06/28/2023 Are You Passively Exposed To Smoke? No [email or web address] Information not available 06/28/2023 Do You Or Have You Ever Used Smokeless Tobacco? Never Used Smokeless Tobacco [id number] Information not available 11/29/2022 Are There Any Smokers In Your House? No [email or web address] Information not available 06/28/2023 How Much Tobacco Do You Smoke? No Was 1ppd [id number] Information not available 11/29/2022 What Types Of Sporting Activities Do You Participate In? None [email or web address] Information not available 06/28/2023 Do You Feel Stressed (tense, Restless, Nervous, Or Anxious, Or Unable To Sleep At Night)? [id number] [email or web address] Information not available 06/28/2023 Do You Use Any Illicit Or Recreational Drugs? No [email or web address] Information not available 06/28/2023 Do You Use Sunscreen Routinely? Yes [email or web address] Information not available 06/28/2023 Have You Recently Traveled Abroad? No [email or web address] Information not available 06/28/2023 Do You Have Any Dietary Restrictions? No [email or web address] Information not available 06/28/2023 Do You Or Have You Ever Used Any Other Forms Of Tobacco Or Nicotine? No [email or web address] Information not available 06/28/2023 Sex: Female Functional Status Question Answer Note LastModified by Organizat ion Details LastModified Time What is your exercise level? None [id number] Information not available 11/29/2022 Mental Status None recorded. Family History Relationship Description Onset Age of this Age Resolved Age Notes LastModified by Organization Details LastModified Time Father Heart disease [id number] Not available 11/29/2022 02:41:04 Father Malignant neoplastic disease [email or web address] Not available 06/02 15:53:34 Mother General health good Not available 15:53:34 Sister Alcohol abuse [email or web address] Not available 06/02 15:53:34 Sister Cerebrovascu lar accident 47 [email or web address] Not available 0 06/28/2023 15:53:34 Unspecified Relation Family history of diabetes mellitus [email or web address] Not available 06/02 15:53:34 Unspecified Relation Family history of ischemic heart disease [email or web address] Not available 06/02 15:53:34 Unspecified Relation Family history of Hypertension [email or web address] Not available 0 06/28/2023 15:53:34 Notes:no new Medical History Condition Response NERVE DISEASE N BLINDNESS N RHEUMATIC FEVER N KIDNEY STONES Y BLADDER PROBLEMS N MRSA N OTHER # 1 N POLIO N LUNG DISEASE/DISORDER N RADIATION / CHEMOTHERAPY N COPD N Other # 2 N BLOOD DISEASES N EAR OR HEARING PROBLEMS N MUMPS N DEPRESSION (INCLUDING POST ) N BOWEL PROBLEMS N STROKE/TIA N ULCERS N BENIGN PROSTATIC HYPERPLASIA N MEASLES N MYOCARDIAL INFARCTION N OBESITY N GERD/NAUSEA N ANEURYSM N URINARY/BLADDER/KIDNEY PROBLEMS N CORONARY ARTERY DISEASE (CAD) N ADDICTION CONCERNS N Impotence N ENDOMETRIOSIS N USE OF BLOOD THINNERS N SKIN PROBLEMS N GASTROINTESTINAL DISORDER N PERIPHERAL VASCULAR DISEASE N MUSCLE,JOINT OR BONE PROBLEMS N GASTROINTESTINAL BLEEDING N BLOOD CLOTS N ASTHMA Y CATARACTS N ERECTILE DYSFUNCTION N VARICOSITIES N GI PROBLEMS N Low Testosterone N INFERTILITY N AIDS/HIV N CHEMOTHERAPY / RADIATION N LIVER DISEASE N MALE HYPOGONADISM N HYPERTENSION Y Deficiency N TOURETTE'S N ANXIETY DISORDER N BLOOD TRANSFUSION N ANEMIA/BLOOD DISORDER N CHRONIC EAR INFECTIONS N BRONCHITIS N TUBERCULOSIS N GLAUCOMA N FOOT PROBLEM N DIVERTICULITIS N SLEEP APNEA N CHICKENPOX N INFECTIOUS DISEASE N PROSTATE N HEART ARRHYTHMIA N INSOMNIA N HIGH CHOLESTEROL / HYPERLIPIDEMIA Y EYE PROBLEMS N HYPERTHYROIDISM N EDEMA N CHRONIC PAIN SYNDROME N HYPOTHYROIDISM N CAROTID BLOCKAGE N CONSTIPATION N BACK / NECK PROBLEMS N HAVE YOU BEEN HOSPITALIZED OR SEEN IN [facility] IN THE PAST YEAR ? N ATHEROSCLEROSIS N BREAST PROBLEMS N DIALYSIS N ECZEMA N OSTEOPOROSIS N ARTHRITIS N APPENDICITIS N DIABETES, TYPE N BAD TEETH N ENT N HEARTBURN / REFLUX N AUTISM SPECTRUM DISORDER (ASD) N HEPATITIS / LIVER DISEASE N GOUT N SLEEP DISORDER N ALZHEIMER'S DISEASE N Brain Problems N DEMENTIA N HERPES N SEIZURES/EPILEPSY N HEADACHES/MIGRAINES N VASCULAR DISEASE N PACEMAKER N Blood Disorder N DIZZINESS N HEART DISEASE/HEART PROBLEMS N KIDNEY DISEASE N MULTIPLE SCLEROSIS N CANCER: SPECIFY N CARDIAC ARRHYTHMIA N ATRIAL FIBRILLATION N Gall Stones N PULMONARY EMBOLISM N AUTOIMMUNE DISEASE N Gynecological History Statement/Question Response Abnormal Pap Y Date of LMP Date of Last Pap Smear 12/20/2020 Current Control Method Tubal Ligat ion Age at Menarche 14 Most Recent Mammogram 11/25/2019 Obstetrics History GPAL:G 2 P 2 0 0 2 Type Value Full Term 2 Living 2 Total 2 Immunizations Vaccine Type Date Status Note Provider Nam e and Address Organization Details Recorded Time COVID-19, mRNA, LNP-S, PF, 100 mcg/0.5mL dose or 50 mcg/0.25mL dose 1 completed Not Available [facility] 06/29/2023 06:52:46 influenza, unspecified formulation 8 completed Not Available [facility] 06/29/2023 06:52:46 Influenza, split virus, trivalent, preservative 1 completed Not Available [facility] 06/29/2023 06:52:46 Influenza, split virus, quadrivalent, PF 7 completed Not Available [facility] 06/29/2023 06:52:46 Influenza, split virus, quadrivalent, PF 2 completed Not Available [facility] 06/29/2023 06:52:46 Past Encounters Encounter ID Performer Location Encounter Start Date Encounter Closed Date Diagnosis/Indication Diagnosis SNOMED-CT Code Diagnosis ICD10 Code Diagnosis Note [id number] _MIGUEL_M IGRATION_ DEFAULT_1 _1 , 12/20/2020 00:00:00 12/20/2020 17:17:10 [id number] [facility] 15 [address] [address] 01/28/2021 00:00:00 01/29/2021 11:56:39 [id number] [facility] Cristiano harper [address] [place] [address] 05/17/2021 00:00:00 06/06/2021 14:12:54 [id number] [facility] Internal [facility] 15 [address] Will [address] [address] 08/05/2021 00:00:00 08/05/2021 10:40:22 [id number] [facility] Internal [facility] [address] [facility] 15 [place] [address] 02/03/2022 00:00:00 02/03/2022 23:09:15 [id number] [facility] Internal [facility] [address] [place], [place] [address]e., [facility] 15 [place] [address] 08/04/2022 00:00:00 08/27/2022 17:56:35 [id number] Yamilex Osborne MD S[facility] Internal Med [facility] 15 [address]43 [facility] 15 [place] [address] 01/15/2023 12:15:56 01/15/2023 12:33:17 Insect bite - wound [id number] T14.8XXA [id number] Yamilex Osborne MD S[facility] Internal Med [facility] [address] [place], [place] [address]., [facility] 15 [place] [address] 06/28/2023 15:52:14 07/09/2023 09:14:08 Essential hypertension [id number] I10 Urinary tr act infectious disease 43181573 N39.0 Pure hypercholesterolemia [id number] E78.00 Health Concerns Section Related Observation LastModified by Organization Detai ls LastModified Time None Recorded Concern Status LastModified by Organization Details LastModified Time None Recorded Advance Directives Directive Y: Payers Encounter Date Sequence Insurance Name Policy Number Policy Randle Covered Member ID Randle Member ID Guarantor Name 01/15/2023 1 [place] [id number] Mylisa A Terese [id number] Mylisa A Terese 01/15/2023 2 [place] [id number] Richard Salinasfford [id number] Mylisa A Terese 06/28/2023 1 [place] [id number] Mylisa A Terese [id number] Mylisa A Terese 06/28/2023 2 [place] [id number] Richard [place]ord [id number] Mylisa A Terese Notes Date Note Type Note Provider Name and Address Organization Details Recorded Time 01/15/2023 text/html Small area on he r leg it itches she is worried about a brown recluse bite Yamilex Osborne MD [address], [place], [address], [employer] 03/11/2023 21:33:55 06/28/2023 text/html Hypertension no headache no dizziness blood pressure 122/86Dyslipidemia no problems with the medication Try to follow low-fat diet hard time losing weightDysuria 2 days sometimes some back pain no nausea vomiting fever chills Yamilex Osborne MD [address], [place], [address], [employer] 07/08/2023 17:16:43 OBGyn Episode No OBEpisode recorded.
--- OUTSIDE RECORDS SUMMARY | 2024-11-10 05:49 | XMS_ITS | Continuity of Care Document ---
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 Name Role Phone [facility] Unavailable Unavail able Procedures Procedure Date SV Hi Index Sphcyl [place] +/-4d, .12-2d O ct Frames Deluxe Anti-reflective Coating Tax - Medical Eye Exam & Treatment Refraction Advance Directives Directive Yes / No Effective Date File Name No Information Encounters Encounter Description Practice Location Reason(s) For Visit Diagnoses Date Provider Providers Copied on Encounter formerly [facility], [address] [place] [address] [address], [place], [place], [id number], [place] tel:[phone] SEC [facility] No Information Oct-0 6-200 9 [facility] . [address] [facility], [facility] [address], [place], [id number], [place]. tel:[phone] Referring Provider: Wojciech Miller OD Jimmy Corral [facility] [address], [place], [address]. tel:[phone] formerly [facility], [address] [place] [address] [address], [place], [place], [id number], [place] tel:[phone] SEC [facility] No Information Oct-0 3-200 9 Miller OD Wojciech. [address] [facility] , [address], [place], [address], [place]. tel:[phone] Family History Family Member Type Diagnosis Age At Onset No Information Payers Payer name Insurance type Covered democrat ID Authoriza tion(s) No Information Social History [...]
--- OUTSIDE RECORDS SUMMARY | 2024-11-10 05:49 | XMS_ITS | Clinical Summary ---
Author Organization [facility] 2 Address [address] [facility] [place] [address] Care Team Providers Care Slab Grinder Name Role Phone Ladarius Osborne MD Primary Care Provider [phone] Solo Pritchett MD Unavailable [phone] Allergies Active Allergy Reactions Criticality Noted Date [...] Fibrocystic breast changes of both breasts 09/02 Surgical History Surgery Date Site/Laterality Comments CO LIG/TRNSXJ FLP TUBE ABDL/ VAG APPR UNI/BI Tubal Ligation - (Added by TW Conv) CO TONSILLECTOMY PRIMARY/SEC ONDARY <AGE 13 Tonsillectomy - (Added by TW Conv) BREAST LUMPECTOMY Medical History Medical History Date Comments Personal history of other en docrine, nutritional and metabolic disease History of hyperlipi demia - -recent blood work showed elevated cholesterol (Added by TW Conv) Personal history of other di seases of the musculoskeletal system and connective tissue History of backache - (Added by TW Conv) Hypertension Chronic bronchitis (HCC) Family History Medical History Relation Name Comments Cancer Father Family history of malignant neoplasm - (Added by TW Conv) Heart disease Father Family history of cardiac disorder - (Added by TW Conv) Liver cancer Father Family history of liver cancer - (Added by TW Conv) Relation Name Status Comments Father Social History Tobacco Use Types Packs/Day Years Used Date Smoking Tobacco: Former Cigarettes Q uit: 2005 Smokeless Tobacco: Never Alcohol Use Standard Drinks/Week [...] on file Legal Sex Female 7:28 PM [employer] Gender Identity Not on file Sexual Orientation Not on file Obstetrics History Last Filed Vital Signs Vital Sign Reading Time Taken Comments Blood Pressure 150/94 11/10/2023 12:35 AM [employer] Pulse 79 11/10/2023 1:10 AM [employer] Temperature 36.6 C (97.8 F) 11/09/2023 6:10 PM [employer] Respiratory Rate 20 11/09/2023 6:10 PM [employer] Oxygen Saturation 98% 11/10/2023 1:10 AM [employer] Inhaled Oxygen Concentration - - Weight 117.9 kg (260 lb) 11/09/2023 6:10 PM [employer] Height 175.3 cm (5' 9 ) 11/09/2023 6:10 PM [employer] Body Mass Index 38.4 11/09/2023 6:10 PM [employer]CRA[employer] P[employer] Plan of Treatment Health Maintenance Due Date Last Done Comments Cervical Cancer Screening 1970 Depression Screening 1971 Hepatitis C Screening 1971 Hepatitis B Screening 1989 Regular Well Visit/Exam 18-64 1989 Zoster Vaccine (1 of 2) 2021 Breast Cancer Screening-Mammogram 10/27/2023 10/27/2022, 01/18/2022, 12/24/2020, Additional history exists Influenza Vaccine (#1) 2024 2, 07/03/2021, 08/01/2018, Additional history exists DTaP/Tdap/Td Vaccine (2 - Td or Tdap) 07/12/2027 07/12/2017 Colon Cancer Screening-Colonoscopy 05/03/2031 05/03/2021 Pneumococcal vaccine <65 Aged Out No longer eligible based on patient's age to complete this topic Procedures Procedure Name Priority Date/Time Associated Diagnosis Comments DIAGNOSTIC MAMMOGRAM BILATERAL W ALEN Schedule Routine, Read Routine (OP Routine) 10/27/2022 3:09 PM AIRCRAFT P[employer] Mass of left breast, unspecified quadrant COLONOSCOPY 05/03/2021 7:12 AM CDT from Last 3 Months or Most Recently Relevant to Health Maintenance Results * Diagnostic Mammogram Bilateral W Alen (10/27/2022 3:09 PM AIRCRAFT PILOT) Anatomical Region Laterality Modality Breast Bilateral Mammography 10/27/2022 3:48 PM AIR[employer] Impressions 10/27/2022 3:48 PM AIRCRA[employer] P[employer] 1. No evidence of malignancy in either [...] Martine Cruz M.D. Narrative 10/27/2022 3:48 PM AIRCRA[employer] EXAMINATION: BILATERAL DIGITAL DIAGNOSTIC MAMMOGRAM INCLUDING CAD [...] Cruz MD - 05/03/2021 7:12 AM CDT [facility] Patient Name: Camden Gudino Procedure Date: 05/03/2021 7:12 AM Date of : 1970 Admit Type: Outpatient Age: 51 Gender: Female Attending MD: Ladarius Cruz M.D. Room: [facility] ENDOSCOPY ROOM 02 Note Status: Finalized Procedure: Colonoscopy [...] The scope was passed under direct vision.The [id number] Colonoscope was introducedthrough the anus and advanced to the the terminal ileum.The colonoscopy was performed without difficulty. The patient tolerated the procedure well. The qualityof the bowel preparation was evaluated using the BBPS ([place] Bowel Preparation Scale) with scores of:Right Colon [...] During normal business hours - Please call theNurse Coordinator: [phone] After hours, evening, nights, weekends and holidays- Please call the hospital sand system operator at and ask for the GI fellow rehabilitation program manager. Attending Participation: I personally performed the entire procedure. Electronically signed by Ladarius Cruz MD Ladarius Cruz M.D. 05/03/2021 2:18:45 PM . Number of Addenda: 0 Note Initiated On: 05/03/2021 7:12 AM Recognized by the Citizen Of The [place] [employer] Gastrointestinal End[employer] for promoting quality in endoscopy Ladarius Cruz MD ENDOSCOPY PROCEDURES Final Result from Last 3 Months or Most Recently Relevant to Health Maintenance Insurance [email or web address] [facility] BLUE ACCESS OOS [place] ACCESS BLUE ACCESS [place] BLUE ACCESS OOS [employer] OOS Member Subscriber Plan / Payer (Ef fective 2011-Present) Name:Camden Gudino Relation to Subscriber:Self Name:Camden Gudino Payer ID:[id number] (NAIC) Type:[employer] Address: [facility] [id number] City Grade ID [facility] ACCESS Care Teams Slab Grinder Relationship Specialty Start Date End Date Ladarius Osborne MD PCP - General 05/17/17 Solo Pritchett MD [address] [place] [address] Referring Physician Obstetrics and Gynecology 11/25/19
--- OUTSIDE RECORDS SUMMARY | 2024-11-10 05:49 | XMS_ITS | Patient Health Summary ---
Author Organization [facility] Address [address] [facility] [place] [address] Care Team Providers Care Mult Au Matic Operator Name Role Phone Ladarius Osborne MD Primary Care Provider [phone] Note from [facility],non-owned Affiliates and Associated Physician Practices is amultiple site organization consisting of ambulatory clinics and hospital sitesin [place], [place], [place] and [place]. This disclosure is being madepursuant to the Care Everywhere program and may not contain all information available regarding this patient. Last updated 18.[facility] Allergies * Contrast-Iodinated Agents For Ct/Other Immunizations * TDAP (7yrs+)(Given 07/12/2017) Social History Tobacco Use Types Packs/Day Years Used Date Smoking Tobacco: Never Assessed Sex and Gender Information Value Date Recorded Sex Assigned at Not on file Gender Identity Not on file Sexual Orientation Not on file Care Teams Mult Au Matic Operator Relationship Specialty Start Date End Date Ladarius Osborne MD PCP - General Internal Medicine 07/12/17
--- OUTSIDE RECORDS SUMMARY | 2024-11-10 05:49 | XMS_ITS | Patient Health Record ---
Author Organization [facility] Address [address], [place] [address] Care Team Providers Care Utility Systems Repairer Operator Name Role Phone Vinnie Luis DPM Primary Care Provider ALLERGIES Allergen (clinical drug ingredient) Drug/Non Drug Allergy documented on EMR Reaction Allergy Type Onset Date Status IV dye (uncoded) Unknown Allergy Act jodi REASON FOR REFERRAL No Information SOCIAL HISTORY Tobacco Use: Social History Observation Description Date Details (start date - stop date) Never Smoker NA - NA Sex Assigned At : Social History Observation Description Sex Assigned At Unknown Tobacco Use: Question Answer Notes Patient is a: nonsmoker Alcohol screening: Question Answer Notes Did you have a drink contain ing alcohol in the past year? Yes How often did you have a dri nk containing alcohol in the past year? Two to four times a month (2 points) How many drinks did you have on a typical day when you were drinking in the past year? 1 or 2 (0 points) How often did you have six o r more drinks on one occasion in the past year? Never (0 points) Points 2 Interpretation Negative PROBLEMS Problem Type ICD Code Onset Dates Problem Status W/U Status Risk SNOMED Code Notes Problem Pain in left ankle and joints of left foot (M25.572) 3 Active confirmed [id number] Problem Effusion, left ankle (M25.472) 3 Active confirmed [id number] Problem Plantar fascial fibromatosis (M72.2) 3 Active confirmed [id number] PLAN OF TREATMENT No Information Insurance Providers Payer Name Payer Address Payer Phone Subscriber Number Group Number Insured Name Patient Relationship to Insured Coverage Start Date Coverage End Date Blue Cross Blue Shield [address] [place] [address] [phone] [id number] Jerilyn Gudino Self - patient is the insured [facility] [address] [place] [address] [id number] Richard Gudino Spouse - patient is the spouse of the insured MEDICAL (GENERAL) HISTORY Medical History History ICD Code high blood pressure high cholesterol Surgical History Surgery Date(Month/Year) tubal ligation 2007 & 1996 left tendon repair - AJR 2018
[2024-11-10 06:03] VITALS: BP 162/85; PULSE 80; RESP 13; TEMP 36.9; O2SAT 99
[2024-11-10 06:08] LABS: BEDSIDEPREGUCG Negative (Negative)
[2024-11-10 06:19] LABS: Basophils Absolute Auto 0.1 K/mm3 (0.0-0.1); Basophils Percent Auto 0.7 % (0.2-1.2); Eosinophils Absolute Auto 0.2 K/mm3 (0-0.3); Eosinophils Percent Auto 2.3 % (0-4.4); Hematocrit 48.4 % (37.0-47.0); Hemoglobin 15.6 g/dL (12.0-15.0); Immature Granulocyte Absolute 0.03 K/mm3 (0.00-0.031); Immature Granulocyte Percent A 0.3 % (0-0.5); Lymphocytes Percent Auto 29.8 % (18.3-44.2); Mean Corpuscular HGB Conc 32.2 g/dl (32-36); Mean Corpuscular Hemoglobin 28.7 pg (26-34); Monocytes Absolute Auto 0.6 K/mm3 (0.1-0.6); Monocytes Percent Auto 7.3 % (2.6-8.5); Neutrophils Absolute Auto 5.2 K/mm3 (1.3-6.7); Neutrophils Percent Auto 59.6 % (45.5-73.1); Platelet Count Result 325 k/mm3 (150-375); Red Blood Count 5.44 M/mm3 (4.2-5.4); Red Cell Distribution Width 13.6 % (11.5-14.5); White Blood Count 8.7 K/mm3 (4.5-10.0)
[2024-11-10 06:24] LABS: Add Urine Microscopic? YES; Appearance Urine Cloudy (Clear); Bacteria Urine 2+ /hpf; Bilirubin Urine Negative (Negative); Blood Urine Trace (Negative); Color Urine Yellow (Yellow); Glucose Urine UA Negative (Negative); Ketones Urine Trace mg/dL (Negative); Leukocyte Esterase Ur 2+ LEU/UL (Negative); Nitrate Urine Negative (Negative); Non Pathogenic Casts 0-2; Protein Urine Trace mg/dL (Negative); Specific Grav Ur 1.029 (1.001-1.035); Squamous Epithelial Cell Urine Many /hpf (Few); WBC Urine 51-100 /hpf (0-3); pH Urine 5.5 (5.0-9.0)
[2024-11-10 06:27] LABS: Alanine Aminotransferase 26 U/L (6-35); Albumin Level 4.5 g/dL (3.5-5.1); Alkaline Phosphatase 94 U/L (38-126); Anion Gap 12 mmol/L (4-12); Aspartate Amino Transferase 24 U/L (14-36); Bilirubin,Total 0.7 mg/dL (0.2-1.3); Blood Urea Nitrogen 15 mg/dL (7-17); Calcium 9.4 mg/dL (8.4-10.2); Carbon Dioxide 27 mmol/L (22-30); Chloride 101 mmol/L (98-107); Estimated CRCL calculation 86 ml/min; Estimated Glomerular Filt Rate > 60; Glucose 124 mg/dL (65-110); Lipase 147 U/L (23-300); Sodium 140 mmol/L (137-145)
[2024-11-10 07:01] VITALS: BP 138/82; PULSE 75; RESP 15; O2SAT 99
[2024-11-10 07:05] VITALS: BP 137/83; PULSE 76; RESP 17; O2SAT 99
[2024-11-10 07:13] LABS: Influenza A QL RT-PCR Negative (Negative); Influenza B QL RT-PCR Negative (Negative); RSV RNA, RT-PCR Negative (Negative); SARS-CoV-2 RNA PCR Negative (Negative)
--- NOTE | 2024-11-10 07:16 | ED_ITS ---
HPI - General Adult General Chief complaint: Abdominal Pain Stated complaint: abd pain Time Seen by Provider: 11/10/24 06:53 History of Present Illness HPI narrative: 54-year-old female presented to the emergency department for evaluation for right lower quadrant pain. Patient states that her symptoms initially started on Sunday with some abdominal discomfort and then became more focused on her right lower quadrant Sunday and Sunday. Patient does report prior history of urinary tract infections. Patient has them frequently but denies any prior history of kidney stones. Patient still has her appendix. Patient is well-appearing at time of evaluation. Patient declined any medications for pain control. Patient denies any allergies other than IV contrast dye. Related Data Home Medications ?Medication ?Instructions ?Recorded ?Confirmed ?Last Taken ?Type atorvastatin 10 mg tablet 10 mg PO DAILY 01/24/22 11/10/24 Unknown History cetirizine 10 mg capsule (Zyrtec) 10 mg PO DAILY PRN allergy symptoms 01/24/22 11/10/24 Unknown History hydrochlorothiazide 12.5 mg tablet 12.5 mg PO DAILY 01/24/22 11/10/24 Unknown History lisinopril 10 mg tablet 10 mg PO DAILY 01/24/22 11/10/24 Unknown History Allergies Allergy/AdvReac Type Severity Reaction Status Date / Time Iodinated Contrast Media AdvReac Intermediate Itching Verified 11/10/24 07:26 Review of Systems 2 Review of Systems: All systems reviewed & are unremarkable except as noted in HPI and below PMFSH Past Medical History Medical History Asthma High cholesterol Hypertension Kidney stone (~2015) Left breast mass Screening mammogram, encounter for Surgical History Surgical History History of dilation and curettage (12/01/10) hscope d&c/Novasure ablation--stromal collapse endometrium History of endometrial ablation (12/01/10) hscope d&c/Novasure ablation--stromal collapse endometrium History of lumpectomy of right breast (07/02/16) benign History of tonsillectomy History of tubal ligation (~1995) S/P tendon repair (07/20/19) left foot Family History Family History Father Heart disease Sibling Cerebrovascular accident sister Alcohol abuse sister Other Family history of diabetes mellitus Family history of heart disease Family history of hypertension Social History Social History Smoking status: Former smoker Tobacco type: cigarettes Smoking end date: 10/01/03 Alcohol intake: current Alcohol use details: 3 x month Substance use: never Substance use type: does not use Do You Feel Safe in your Home?: Yes Lack of Transportation: No Lack of Food: Never True Current Housing: I Have Housing Concerned About Future Housing: No Difficulty Paying Gas/Electric Bills: No Difficulty Paying for Meds: No Currently Unemployed: No Education: High School Diploma/GED Difficulty w/ Childcare or Family Care: No Living arrangements: with family Additional living arrangements comments: Occupation/Education: occupation 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 HEAD: normocephalic, atraumatic. EYES: PERRLA/EOMI, conjunctivae clear. NOSE: Normal no drainage EARS:TMS clear with good light reflex. THROAT: Pharynx clear, no exudate. NECK: Supple. No adenopathy, no masses. RESPIRATORY: Airway patent, respirations nonlabored. Clear to auscultation bilaterally, no rales, rhonchi, wheezing. CARDIOVASCULAR: Regular rate and rhythm without murmurs rubs or gallops. ABDOMINAL: Soft, nontender, nondistended, normal bowel sounds MUSCULOSKELETAL: Moves all extremities. Strength/ROM intact, No edema, No calf tenderness. NEURO: Alert. Cranial nerves II through XII intact. Grossly intact SKIN: Warm, dry. Normal Color Course Vital Signs Vital signs: Vital Signs Temperature 98.5 F 11/10/24 06:03 Pulse Rate 80 11/10/24 06:03 Respiratory Rate 13 11/10/24 06:03 Blood Pressure 162/85 H 11/10/24 06:03 Pulse Oximetry 99 11/10/24 06:03 Oxygen Delivery Room Air 11/10/24 06:03 Temperature 98.5 F 11/10/24 06:03 Pulse Rate 74 11/10/24 08:01 Respiratory Rate 17 11/10/24 08:01 Blood Pressure 136/85 11/10/24 08:01 Pulse Oximetry 98 11/10/24 08:01 Oxygen Delivery Room Air 11/10/24 06:03 Medical Decision Making MDM Narrative Medical decision making narrative: 54-year-old female presents to the emergency department for evaluation for right lower quadrant pain. Patient is currently afebrile with no leukocytosis and has a hemoglobin of 15.6. Patient has no acute abnormalities on her CMP urine was positive for leukocyte esterase some red blood cells but high white blood cells and bacteria. Urine test was negative. Patient was negative for influenza RSV and for COVID. CT scan was ordered to evaluate for colitis, diverticulitis, appendicitis. Patient is being started on IV Rocephin for the underlying urinary tract infection. CT scan showed no acute abnormality. Suspect patient's symptoms are secondary to a UTI. Patient will be discharged home with Pyridium and Keflex. Patient family were updated on the results of the workup. All questions concerns were addressed. Differential Diagnosis Differential Diagnosis: Ureteral calculi, cholecystitis, diverticulitis, colitis, UTI Vital Signs Vital Signs: Vital Signs Temperature 98.5 F 11/10/24 06:03 Pulse Rate 80 11/10/24 06:03 Respiratory Rate 13 11/10/24 06:03 Blood Pressure 162/85 H 11/10/24 06:03 Pulse Oximetry 99 11/10/24 06:03 Oxygen Delivery Room Air 11/10/24 06:03 Temperature 98.5 F 11/10/24 06:03 Pulse Rate 74 11/10/24 08:01 Respiratory Rate 17 11/10/24 08:01 Blood Pressure 136/85 11/10/24 08:01 Pulse Oximetry 98 11/10/24 08:01 Oxygen Delivery Room Air 11/10/24 06:03 Lab Data Lab results reviewed: Yes I reviewed the patient's lab results. 11/10/24 06:03 11/10/24 06:03 Labs: Lab Results 11/10/24 11/10/24 Range/Units 05:55 06:03 WBC 8.7 (4.5-10.0) K/mm3 RBC 5.44 H (4.2-5.4) M/mm3 Hgb 15.6 H (12.0-15.0) g/dL Hct 48.4 H (37.0-47.0) % MCV 89.0 (80-100) fl MCH 28.7 (26-34) pg MCHC 32.2 (32-36) g/dl RDW 13.6 (11.5-14.5) % Plt Count 325 (150-375) k/mm3 MPV 10.0 (7.4-10.4) fl Immature Gran % (Auto) 0.3 (0-0.5) % Neut % (Auto) 59.6 (45.5-73.1) % Lymph % (Auto) 29.8 (18.3-44.2) % Bath % (Auto) 7.3 (2.6-8.5) % Eos % (Auto) 2.3 (0-4.4) % Baso % (Auto) 0.7 (0.2-1.2) % Lymph # (Auto) 2.60 (0.9-3.2) K/mm3 Bath # (Auto) 0.6 (0.1-0.6) K/mm3 Eos # (Auto) 0.2 (0-0.3) K/mm3 Baso # (Auto) 0.1 (0.0-0.1) K/mm3 Abs Immat Gran (auto) 0.03 (0.00-0.031) K/mm3 Absolute Neuts (auto) 5.2 (1.3-6.7) K/mm3 Absolute Nucleated RBC 0.000 (0.0-0.012) K/mm3 Nucleated RBC % 0.0 (0.0-0.2) % Sodium 140 (137-145) mmol/L Potassium 4.0 (3.4-5.0) mmol/L Chloride 101 (98-107) mmol/L Carbon Dioxide 27 (22-30) mmol/L Anion Gap 12 (4-12) mmol/L BUN 15 (7-17) mg/dL Creatinine 0.92 (0.7-1.0) mg/dL Estim Creat Clear Calc 86 ml/min Estimated GFR > 60 (59 - ) Glucose 124 H (65-110) mg/dL Calcium 9.4 (8.4-10.2) mg/dL Total Bilirubin 0.7 (0.2-1.3) mg/dL AST 24 (14-36) U/L ALT 26 (6-35) U/L Alkaline Phosphatase 94 (38-126) U/L Total Protein 8.0 (6.3-8.2) g/dL Albumin 4.5 (3.5-5.1) g/dL Lipase 147 (23-300) U/L Urine Color Yellow (Yellow) Urine Appearance Cloudy H (Clear) Urine pH 5.5 (5.0-9.0) Ur Specific [place] 1.029 (1.001-1.035) Urine Protein Trace (Negative) mg/dL Urine Glucose (UA) Negative (Negative) mg/dL Urine Ketones Trace H (Negative) mg/dL Ur Blood (Man) Trace (Negative) Urine Nitrate Negative (Negative) Urine Bilirubin Negative (Negative) Urine Urobilinogen 1.0 (<2.0) mg/dL Leukocyte Esterase Rfl 2+ H (Negative) RENA/UL Urine RBC 3-5 H (0-2) /hpf Urine WBC 51-100 H (0-3) /hpf Ur Squamous Epith Cells Many H (Few) /hpf Urine Bacteria 2+ H /hpf Urine Casts 0-2 POC Urine HCG, Qual Negative (Negative) Influenza A (RT-PCR) Negative (Negative) Influenza B (RT-PCR) Negative (Negative) RSV (RT-PCR) Negative (Negative) SARS-CoV-2 RNA (RT-PCR) Negative (Negative) Imaging Data Radiologist's impression: Impressions Abdomen/Pelvis CT 11/10/24 07:34 Impression: No significant abnormality seen. Discharge Plan Discharge Clinical Impression: Acute flank pain, UTI (urinary tract infection) Patient Disposition: Home, Self-Care Condition: Stable Instructions: Antibiotic Form, Urinary Tract Infection in Women (DC), Abdominal Pain (ED) Additional Instructions: Drink plenty of water. Pyridium for urinary symptoms. Antibiotic as directed until completed. Have close follow-up with your primary care physician. Patient Language: Tamazight Prescriptions: New phenazopyridine [Pyridium] 100 mg tablet 100 mg PO TID PRN (Reason: pain) Qty: 6 0RF cephalexin 500 mg capsule 500 mg PO Q8H 7 Days Qty: 21 0RF No Action atorvastatin 10 mg tablet 10 mg PO DAILY hydrochlorothiazide 12.5 mg tablet 12.5 mg PO DAILY lisinopril 10 mg tablet 10 mg PO DAILY Zyrtec 10 mg capsule 10 mg PO DAILY PRN (Reason: allergy symptoms) Follow-up/Referrals: Dylon,MD Ladarius [Primary Care Provider] -
[2024-11-10 07:25] VITALS: BP 141/71; PULSE 82; RESP 16; O2SAT 99
[2024-11-10 07:26] VITALS: BP 141/71; PULSE 74; RESP 16; O2SAT 99
--- OUTSIDE RECORDS SUMMARY | 2024-11-10 07:54 | XMS_ITS | Continuity of Care Document ---
Author Organization [facility] [place] [address] [place] [address] [address] [place] [address] Phone Care Team Providers Care Employee Welfare Manager Name Role Phone [facility] Unavailable Unavail able Procedures Procedure Date SV Hi Index Sphcyl [place] +/-4d, .12-2d O ct Frames Deluxe Anti-reflective Coating Tax - Medical Eye Exam & Treatment Refraction Advance Directives Directive Yes / No Effective Date File Name No Information Encounters Encounter Description Practice Location Reason(s) For Visit Diagnoses Date Provider Providers Copied on Encounter [facility], [address] [place] [address] [address], [place], [place], [id number], [place] tel:[phone] [facility] No Information Oct-0 6-200 9 [facility] . [address] [facility], [facility] [address], [place], [id number], [place]. tel:[phone] Referring Provider: Wojciech Miller OD Jimmy [facility] [address], [place], [address]. tel:[phone] [facility], [address] [place] [address] [address], [place], [place], [id number], [place] tel:[phone] SEC [facility] No Information Oct-0 3-200 9 Miller OD Wojciech. [address] [facility] , [address], [place], [address], [place]. tel:[phone] Family History Family Member Type Diagnosis Age At Onset No Information Payers Payer name Insurance type Covered green party ID Authoriza tion(s) No Information Social [...]
--- OUTSIDE RECORDS SUMMARY | 2024-11-10 07:55 | XMS_ITS | CONTINUITY OF CARE DOCUMENT ---
Author Name samantha singh Address Unknown Organization [facility] Address [address] [facility] [address] [place] [address] Phone [phone] Care Team Providers Care Air Route Controller Name Role Phone YAMILEX LEAL MD Unavailable YAMILEX LEAL MD Unavailable INSURANCE PROVIDERS Payer name Policy type / Coverage type Jarocho red democrat ID [id number] [employer] PPO Other [id number]
--- OUTSIDE RECORDS SUMMARY | 2024-11-10 07:55 | XMS_ITS | Clinical Summary ---
Author Organization 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 Gender Identity Not on file Sexual Orientation Not on file Obstetrics History Last Filed Vital Signs Vital Sign Reading Time Taken Comments Blood Pressure 150/94 11/10/2023 12:35 AM COMPUTER ASSEMBLER Pulse 79 11/10/2023 1:10 AM COMPUTER ASSEMBLER Temperature 36.6 C (97.8 F) 11/09/2023 6:10 PM COMPUTER ASSEMBLER Respiratory Rate 20 11/09/2023 6:10 PM COMPUTER ASSEMBLER Oxygen Saturation 98% 11/10/2023 1:10 AM COMPUTER ASSEMBLER Inhaled Oxygen Concentration - - Weight 117.9 kg (260 lb) 11/09/2023 6:10 PM COMPUTER ASSEMBLER Height 175.3 cm (5' 9 ) 11/09/2023 6:10 PM COMPUTER ASSEMBLER Body Mass Index 38.4 11/09/2023 6:10 PM COMPUTER ASSEMBLER Plan of Treatment Health Maintenance Due Date [...] Read Routine (OP Routine) 10/27/2022 3:09 PM COMPUTER ASSEMBLER Mass of left breast, unspecified quadrant COLONOSCOPY 05/03/2021 7:12 AM CDT from Last 3 Months or Most Recently Relevant to Health Maintenance Results * Diagnostic Mammogram Bilateral W Alen (10/27/2022 3:09 PM COMPUTER ASSEMBLER) Anatomical Region Laterality Modality Breast Bilateral Mammography 10/27/2022 3:48 PM COMPUTER ASSEMBLER Impressions 10/27/2022 3:48 PM COMPUTER ASSEMBLER 1. No evidence of malignancy in either [...] Martine Cruz M.D. Narrative 10/27/2022 3:48 PM COMPUTER ASSEMBLER EXAMINATION: BILATERAL DIGITAL DIAGNOSTIC MAMMOGRAM INCLUDING CAD [...] Cruz MD - 05/03/2021 7:12 AM CDT [facility] Patient Name: Camden Gudino Procedure Date: 05/03/2021 7:12 AM Date of : 1970 Admit Type: Outpatient Age: 51 Gender: Female Attending MD: Ladarius Cruz M.D. Room: [facility] ENDOSCOPY ROOM 02 Note Status: Finalized Procedure: Colonoscopy Indications: Screening for colorectal malignant neoplasm, Thisis the patient's first colonoscopy Referring MD: Ladarius Osborne M.D. Providers: Ladaruis Cruz M.D. Medicines: Monitored Anesthesia Care Complications: [...] The scope was passed under direct vision.The [id number] Colonoscope was introducedthrough the anus and advanced to the the terminal ileum.The colonoscopy was performed without difficulty. The patient tolerated the procedure well. The qualityof the bowel preparation was evaluated using the BBPS ([place] Bowel Preparation Scale) with scores of:Right Colon [...] business hours - Please call theNurse Coordinator: [phone] After hours, evening, nights, weekends and holidays- Please call the hospital gear milling machine set up operator at and ask for the GI fellow water control station engineer. Attending Participation: I personally performed the entire procedure. Electronically signed by Ladarius Cruz MD Ladarius Cruz M.D. 05/03/2021 2:18:45 PM . Number of Addenda: 0 Note Initiated On: 05/03/2021 7:12 AM Recognized by the [place] Society for Gastrointestinal Endoscopy for promoting quality in endoscopy Ladarius Cruz MD ENDOSCOPY PROCEDURES Final Result from Last 3 Months or Most Recently Relevant to Health Maintenance Insurance [email or web address] [facility] BLUE ACCESS OOS [place]THE[place] ACCESS BLUE ACCESS [place] BLUE ACCESS OOS [employer] OOS Member Subscriber Plan / Payer (Ef fective 2011-Present) Name:Camden Gudino Relation to Subscriber:Self Name:Camden Gudino Payer ID:[id number] (NAIC) Type:[employer] Address: [facility] [id number] [place] [facility] ACCESS Care Teams Hospice Nurse Relationship Specialty Start Date End Date Ladarius Osborne MD PCP - General 05/17/17 Solo Pritchett MD [address] [place] [address] Referring Physician Obstetrics and Gynecology 11/25/19
--- OUTSIDE RECORDS SUMMARY | 2024-11-10 07:55 | XMS_ITS | Patient Health Summary ---
Author Organization [facility] Address [address] [place] [address] Care Team Providers Care Developer Programmer Analyst Name Role Phone Ladarius Osborne MD Primary Care Provider [phone] Note from [facility],non-owned Affiliates and Associated Physician Practices is amultiple site organization consisting of ambulatory clinics and hospital sitesin [place], [place], [place] and [place]. This disclosure is being madepursuant to the Care Everywhere program and may not contain all information available regarding this patient. Last updated 18.[facility] Allergies * Contrast-Iodinated Agents For Ct/Other Immunizations * TDAP (7yrs+)(Given 07/12/2017) Social History Tobacco Use Types Packs/Day Years Used Date Smoking Tobacco: Never Assessed Sex and Gender Information Value Date Recorded Sex Assigned at Not on file Gender Identity Not on file Sexual Orientation Not on file Care Teams Developer Programmer Analyst Relationship Specialty Start Date End Date Ladarius Osborne MD PCP - General Internal Medicine 07/12/17
--- OUTSIDE RECORDS SUMMARY | 2024-11-10 07:55 | XMS_ITS | Clinical Summary ---
Author Organization [facility] Address [address] [place] [address] Phone Care Team Providers Care Wet Pan Operator Name Role Phone Unavailable Primary Care Provider [...] Comments Blood Pressure 143/92 08/30/2021 10:00 AM CORRECTIONAL PROBATION OFFICER Pulse 90 08/30/2021 10:00 AM CORRECTIONAL PROBATION OFFICER Temperature 36.7 C (98.1 F) 08/30/2021 10:00 AM CORRECTIONAL PROBATION OFFICER Respiratory Rate - - Oxygen Saturation - - Inhaled Oxygen Concentration - - Weight 117 kg (258 lb) 08/30/2021 10:00 AM CORRECTIONAL PROBATION OFFICER Height 175 cm (5' 8.9 ) 08/30/2021 10:00 AM CORRECTIONAL PROBATION OFFICER Body Mass Index 38.21 08/30/2021 10:00 AM CORRECTIONAL PROBATION OFFICER Plan of Treatment Health Maintenance Due Date [...] topic Insurance BCBS BLUE ACCESS/TRUE BLUE PPO [facility] [place]
--- OUTSIDE RECORDS SUMMARY | 2024-11-10 07:55 | XMS_ITS | Clinical Summary ---
Author Organization [facility] Address [address] [place] [address] Care Team Providers Care Diesel Automotive Technician Name Role Phone Ladarius Osborne MD Primary Care Provider [phone] Source Comments [facility],non-owned Affiliates and Associated Physician Practices is amultiple site organization consisting of ambulatory clinics and hospital sitesin [place], [place], [place]. This disclosure is being madepursuant to the Care Everywhere program and may not contain all information available regarding this patient. Last updated 18.[facility] Stevie Allergies Active Allergy Reactions Criticality Noted Date [...] age to complete this topic Care Teams Diesel Automotive Technician Relationship Specialty Start Date End Date Ladarius Osborne MD PCP - General Internal Medicine 07/12/17
--- OUTSIDE RECORDS SUMMARY | 2024-11-10 07:55 | XMS_ITS | Referral Summary ---
Author Organization [facility] Address [address] [facility] [place] [address] Care Team Providers Care Literacy Consultant Name Role Phone Ladarius Osborne MD Primary Care Provider [phone] Source Comments [facility],non-owned Affiliates and Associated Physician Practices is amultiple site organization consisting of ambulatory clinics and hospital sitesin [place], [place], [place] and [place]. This disclosure is being madepursuant to the Care Everywhere program and may not contain all information available regarding this patient. Last updated 18.[facility] Collect Allergies Active Allergy Reactions Criticality Noted Date [...] of Treatment Not on file Care Teams Literacy Consultant Relationship Specialty Start Date End Date Ladarius Osborne MD PCP - General Internal Medicine 07/12/17
--- OUTSIDE RECORDS SUMMARY | 2024-11-10 07:55 | XMS_ITS | Referral Summary ---
Author Organization [facility] Medical [facility] 2 Address [address] [facility] [place] [address] Care Team Providers Care Comic Writer Name Role Phone Ladarius Osborne MD Primary Care Provider [phone] Solo Pritchett MD Unavailable [phone] Allergies Active Allergy Reactions Criticality Noted Date [...] on file Legal Sex Female 7:28 PM ESTIMATION MANAGER Gender Identity Not on file Sexual Orientation Not on file Last Filed Vital Signs Vital Sign Reading Time Taken Comments Blood Pressure 150/94 11/10/2023 12:35 AM ESTIMATION MANAGER Pulse 79 11/10/2023 1:10 AM ESTIMATION MANAGER Temperature 36.6 C (97.8 F) 11/09/2023 6:10 PM ESTIMATION MANAGER Respiratory Rate 20 11/09/2023 6:10 PM ESTIMATION MANAGER Oxygen Saturation 98% 11/10/2023 1:10 AM ESTIMATION MANAGER Inhaled Oxygen Concentration - - Weight 117.9 kg (260 lb) 11/09/2023 6:10 PM ESTIMATION MANAGER Height 175.3 cm (5' 9 ) 11/09/2023 6:10 PM ESTIMATION MANAGER Body Mass Index 38.4 11/09/2023 6:10 PM ESTIMATION MANAGER Plan of Treatment Not on file Procedures Procedure Name Priority Date/Time Associated Diagnosis Comments DIAGNOSTIC MAMMOGRAM BILATERAL W ALEN Schedule Routine, Read Routine (OP Routine) 10/27/2022 3:09 PM ESTIMATION MANAGER Mass of left breast, unspecified quadrant COLONOSCOPY 05/03/2021 7:12 AM CDT from Last 3 Months or Most Recently Relevant to Health Maintenance Results * Diagnostic Mammogram Bilateral W Alen (10/27/2022 3:09 PM ESTIMATION MANAGER) Anatomical Region Laterality Modality Breast Bilateral Mammography 10/27/2022 3:48 PM ESTIMATION MANAGER Impressions 10/27/2022 3:48 PM ESTIMATION MANAGER 1. No evidence of malignancy in either [...] Martine Cruz M.D. Narrative 10/27/2022 3:48 PM ESTIMATION MANAGER EXAMINATION: BILATERAL DIGITAL DIAGNOSTIC MAMMOGRAM INCLUDING CAD [...] Cruz MD - 05/03/2021 7:12 AM CDT [facility] Patient Name: Camden Gudino Procedure Date: 05/03/2021 7:12 AM Date of : 1970 Admit Type: Outpatient Age: 51 Gender: Female Attending MD: Ladarius Cruz M.D. Room: [facility] ROOM 02 Note Status: Finalized Procedure: Colonoscopy [...] The scope was passed under direct vision.The [id number] Colonoscope was introducedthrough the anus and advanced to the the terminal ileum.The colonoscopy was performed without difficulty. The patient tolerated the procedure well. The qualityof the bowel preparation was evaluated using the BBPS ([place] Bowel Preparation Scale) with scores of:Right Colon [...] During normal business hours - [facility]: [phone] After hours, evening, nights, weekends and holidays- Please call the hospital still operator brandy at and ask for the GI fellow news camera person. Attending Participation: I personally performed the entire procedure. Electronically signed by Ladarius Cruz MD Ladarius Cruz M.D. 05/03/2021 2:18:45 PM . Number of Addenda: 0 Note Initiated On: 05/03/2021 7:12 AM Recognized by the [place] Society for Gastrointestinal Endoscopy for promoting quality in endoscopy Ladarius Cruz MD ENDOSCOPY PROCEDURES Final Result from Last 3 Months or Most Recently Relevant to Health Maintenance Insurance [facility] [employer] OOS [facility] ACCESS BLUE [employer] [place] BLUE ACCESS OOS BLUE ACCESS [place]ESS [place] ANTHEM ACCESS Care Teams Comic Writer Relationship Specialty Start Date End Date Ladarius Osborne MD PCP - General 05/17/17 Solo Pritchett MD [address] [place] [address] Referring Physician Obstetrics and Gynecology 11/25/19
[2024-11-10 08:01] VITALS: BP 136/85; PULSE 74; RESP 17; O2SAT 98
== END 2024-11-10 08:52 | disposition home or self-care (01) ==
PROVIDERS: Student in an Organized Health Care Education/Training Program; Emergency Provider Emergency Medicine; PCP Internal Medicine
DX: N39.0 Urinary tract infection, site not specified (principal); Z20.822 Contact with and (suspected) exposure to COVID-19; J45.909 Unspecified asthma, uncomplicated; I10 Essential (primary) hypertension; E78.00 Pure hypercholesterolemia, unspecified; Z87.442 Personal history of urinary calculi; Z87.891 Personal history of nicotine dependence
CPT/HCPCS: 36415; 74176; 80053; 81001; 81025; 83690; 85025; 87637; 96365; 99284; J0696

== ENCOUNTER 2024-12-12 07:25 | Outpatient (CLI) | payer BC, SELFPAY ==
--- NOTE | ~2024-12-12 | DEXA_ITS ---
Bone Density Report Name: CAMDEN OLMOS Age: 54 Sex: Female Ethnicity: White Date of : 1970 Indication: postmenopausal; screening for osteoporosis; Referring Provider: YAMILEX HART Study: Bone densitometry was performed. Exam Date: December 12, 2024 Accession number: [id number] Bone Density: Region BMD T-score Z-score Classification AP Spine(L1-L4) 1.115 0.6 1.6 Normal Femoral Neck (Left) 0.822 -0.2 0.7 Normal Total Hip (Left) 1.109 1.4 2.0 Normal Femoral Neck (Right) 0.786 -0.6 0.4 Normal Total Hip (Right) 1.108 1.4 2.0 Normal Total Hip Mean 1.108 1.4 2.0 Normal World Health Organization criteria for BMD impression classify patients as: Normal (T-score at or above -1.0), Osteopenia (T-score between -1.0 and -2.5), or Osteoporosis (T-score at or below -2.5). 10-year Fracture Risk: FRAX not reported because: All T-scores for Spine Total, Hip Total, Femoral Neck at or above -1.0 Clinical Information Provided by Patient: Patient maximum height was 69 Menopause Age: 43 No regular weight bearing exercise Drinks caffeinated beverages Onset of menses at age 13 Number of children 2 Impression: The patient has normal bone mass. Discussion: BONE DENSITY IS ABOVE THE MINIMUM DESIRABLE LEVEL AT ALL SKELETAL SITES TESTED. This patient?s bone mineral density is above the minimum desirable level (T-score -1.0 or better) at all sites measured. The patient should follow a healthful lifestyle (good nutrition with adequate calcium and vitamin D, and appropriate weight-bearing exercise). Follow-Up: Consider repeating this study in 5 years or sooner if there is some new clinical indication. Reported by: DEISI on 12/12/2024 8:01:00 AM. Reviewed, dictated and finalized at location A.
--- OUTSIDE RECORDS SUMMARY | 2024-12-12 07:37 | XMS_ITS | Continuity of Care Document ---
Author Organization [facility] Address [address] [place] [address] [address] [place] [address] Phone Care Team Providers Care Garage Worker Name Role Phone [facility] Unavailable Unavail able Procedures Procedure Date SV Hi Index Sphcyl [place] +/-4d, .12-2d O ct Frames Deluxe Anti-reflective Coating Tax - Medical Eye Exam & Treatment Refraction Advance Directives Directive Yes / No Effective Date File Name No Information Encounters Encounter Description Practice Location Reason(s) For Visit Diagnoses Date Provider Providers Copied on Encounter [facility], [address] [place] [address] [address], [place], [place], [id number], [place] tel:[phone] SEC [facility] No Information Oct-0 6-200 9 [facility] . [address] [facility] [address], [place], [address], [place]. tel:[phone] Referring Provider: Wojciech Miller OD Jimmy Corral [facility] [address], [place], [address]. tel:[phone] [facility], [address] [place] [address] [address], [place], [place], [address], [place] tel:[phone] SEC [facility] No Information Oct-0 3-200 9 Miller OD Wojciech. [address] [facility] , [address], [place], [address], [place]. tel:[phone] Family History Family Member Type Diagnosis Age At Onset No Information Payers Payer name Insurance type Covered republican ID Authoriza tion(s) No Information Social History [...]
--- OUTSIDE RECORDS SUMMARY | 2024-12-12 07:37 | XMS_ITS | Referral Summary ---
Author Organization [facility] 2 Address [address] [facility] [place] [address] Care Team Providers Care Bellhop Service Captain Name Role Phone Ladarius Osborne MD Primary Care Provider [phone] Solo Pritchett MD Unavailable [phone] Allergies Active Allergy Reactions Criticality Noted Date [...] on file Legal Sex Female 7:28 PM SPOT WELDER BODY ASSEMBLY Gender Identity Not on file Sexual Orientation Not on file Last Filed Vital Signs Vital Sign Reading Time Taken Comments Blood Pressure 150/94 11/10/2023 12:35 AM SPOT WELDER BODY ASSEMBLY Pulse 79 11/10/2023 1:10 AM SPOT WELDER BODY ASSEMBLY Temperature 36.6 C (97.8 F) 11/09/2023 6:10 PM SPOT WELDER BODY ASSEMBLY Respiratory Rate 20 11/09/2023 6:10 PM SPOT WELDER BODY ASSEMBLY Oxygen Saturation 98% 11/10/2023 1:10 AM SPOT WELDER BODY ASSEMBLY Inhaled Oxygen Concentration - - Weight 117.9 kg (260 lb) 11/09/2023 6:10 PM SPOT WELDER BODY ASSEMBLY Height 175.3 cm (5' 9 ) 11/09/2023 6:10 PM SPOT WELDER BODY ASSEMBLY Body Mass Index 38.4 11/09/2023 6:10 PM SPOT WELDER BODY ASSEMBLY Plan of Treatment Not on file Procedures Procedure Name Priority Date/Time Associated Diagnosis Comments DIAGNOSTIC MAMMOGRAM BILATERAL W ALEN Schedule Routine, Read Routine (OP Routine) 10/27/2022 3:09 PM SPOT WELDER BODY ASSEMBLY Mass of left breast, unspecified quadrant COLONOSCOPY 05/03/2021 7:12 AM CDT from Last 3 Months or Most Recently Relevant to Health Maintenance Results * Diagnostic Mammogram Bilateral W Alen (10/27/2022 3:09 PM SPOT WELDER BODY ASSEMBLY) Anatomical Region Laterality Modality Breast Bilateral Mammography 10/27/2022 3:48 PM SPOT WELDER BODY ASSEMBLY Impressions 10/27/2022 3:48 PM SPOT WELDER BODY ASSEMBLY 1. No evidence of malignancy in either [...] Martine Cruz M.D. Narrative 10/27/2022 3:48 PM SPOT WELDER BODY ASSEMBLY EXAMINATION: BILATERAL DIGITAL DIAGNOSTIC MAMMOGRAM INCLUDING CAD [...] AM CDT [facility] Patient Name: Jerilyn Gudino Procedure Date: 05/03/2021 7:12 AM Date of : 1970 Admit Type: Outpatient Age: 51 Gender: Female Attending MD: Ladarius Cruz M.D. Room: [facility] ROOM 02 Note Status: Finalized Procedure: [...] The scope was passed under direct vision.The [id number] Colonoscope was introducedthrough the anus and advanced to the the terminal ileum.The colonoscopy was performed without difficulty. The patient tolerated the procedure well. The qualityof the bowel preparation was evaluated using the BBPS ([place] Bowel Preparation Scale) with scores of:Right Colon [...] business hours - Please call theNurse Coordinator: [phone] After hours, evening, nights, weekends and holidays- Please call the hospital vacuum extractor operator at and ask for the GI fellow stationary steam engineer. Attending Participation: I personally performed the entire procedure. Electronically signed by Ladarius Cruz MD Ladarius Cruz M.D. 05/03/2021 2:18:45 PM . Number of Addenda: 0 Note Initiated On: 05/03/2021 7:12 AM Recognized by the [place] Society for Gastrointestinal Endoscopy for promoting quality in endoscopy Ladarius Cruz MD ENDOSCOPY PROCEDURES Final Result from Last 3 Months or Most Recently Relevant to Health Maintenance Insurance [facility] [employer] O[place] [id number] [place] [address] ACCESS BLUE [employer] [place] BLUE ACCESS OOS BLUE ACCESS [place] BLUE [place]ESS [place] Care Teams Bellhop Service Captain Relationship Specialty Start Date End Date Ladarius Osborne MD PCP - General 05/17/17 Solo Pritchett MD [address] [place] [address] Referring Physician Obstetrics and Gynecology 11/25/19
--- OUTSIDE RECORDS SUMMARY | 2024-12-12 07:37 | XMS_ITS | Patient Health Summary ---
Author Organization [facility] Address [address] [facility] [place] [address] Care Team Providers Care Decision Science Analyst Name Role Phone Ladarius Osborne MD Primary Care Provider [phone] Note from [facility],non-owned Affiliates and Associated Physician Practices is amultiple site organization consisting of ambulatory clinics and hospital sitesin [place], [place], [place] and [place]. This disclosure is being madepursuant to the Care Everywhere program and may not contain all information available regarding this patient. Last updated 18.[facility] Allergies * Contrast-Iodinated Agents For Ct/Other Immunizations * TDAP (7yrs+)(Given 07/12/2017) Social History Tobacco Use Types Packs/Day Years Used Date Smoking Tobacco: Never Assessed Sex and Gender Information Value Date Recorded Sex Assigned at Not on file Gender Identity Not on file Sexual Orientation Not on file Care Teams Decision Science Analyst Relationship Specialty Start Date End Date Ladarius Osborne MD PCP - General Internal Medicine 07/12/17
--- OUTSIDE RECORDS SUMMARY | 2024-12-12 07:37 | XMS_ITS | Data Portability ---
Author Organization [facility], Main Office Address [address] [place] [address] Care Team Providers Care Monitor Worker Name Role Phone YAMILEX OSBORNE Primary Care Provider YAMILEX OSBORNE Referring Provider [phone] Assessment Encounter Date Assessment Date Assessment LastModified by Organization Details LastModified Time 01/15/2023 01/15/2023 Local care [email or web address] Not available 08/2023 21:33:39 06/28/2023 06/28/2023 Hypertension controlled UTI symptoms Macrobid and check urinalysis dyslipidemia Lipitor low-fat diet follow-up 4-6 months [email or web address] Not available 07/08/2023 17:13:35 Plan of Treatment Reminders Order Date Submit Date Provider Last Modified By Organization Details Last Modified Time Details Appointments None recorded. Lab urinalysis, microscopic 2022 023 [facility] (Lab), [address] [place], [address], 3 09:26:32 lipid panel, serum 2022 023 [facility] (Lab), [address] [place], [address], 3 19:06:36 CMP, serum or plasma 2022 023 [facility] (Lab), [address] [place], [address], 3 19:06:51 CBC w/ auto diff [address] [facility] (Lab), [address] [place], [address], 3 18:25:34 Referral None recorded. Procedures None recorded. Surgeries None recorded. Imaging None recorded. Medication Orders Macrobid 100 mg capsule 2022 023 [email or web address] [id number], [address], [place], [place], [id number], 3 18:25:34 Patient TargetsNo targets recorded. Patient [...] ----- HIGH RISK: >240 >[address] [facility] (Lab) [address] [place], [address], 11/17/2021 16:16:44 11/17/19 22 11/17/2021 LIPID PANEL triglyceride s 119 mg/dL 0-150 NIH TONI NSUS REPOR T RECOM MENDA TION FOR TRIGL YCERI ASHLEY: ADULT CHILD LOW RISK: <150 ----- BODER LINE: 150-1 99 ----- HIGH RISK: >[address] ----- Not [address] [facility] (Lab) [address] [place], [address], 11/17/2021 16:16:44 11/17/19 22 11/17/2021 LIPID PANEL HDL cholesterol 49 mg/dL 40- Not Available [facility] (Lab) [address] [place], [address], 11/17/2021 16:16:44 11/17/19 22 11/17/2021 LIPID PANEL [...] WILL NOT BE REPOR CHETAN. Not Available [facility] (Lab) [address] [place], [address], 11/17/2021 16:16:44 11/17/19 22 11/17/2021 CBC/C OMPLE TE BLD COUNT W/DIF F mean red cell volume 88.9 fL 82.0-[address] [facility] (Lab) [address] [place], [address], 11/17/2021 14:42:42 11/17/19 22 11/17/2021 CBC/C OMPLE TE BLD COUNT W/DIF F white blood cells 9.1 x10'3 /uL 4.2-[address] [facility] (Lab) [address] [place], [address], 11/17/2021 14:42:42 11/17/19 22 11/17/2021 CBC/C OMPLE TE BLD COUNT W/DIF F red blood cells 5.52 x10'6 /uL 3.80-5 .[address] [facility] (Lab) [address] [place], [address], 11/17/2021 14:42:42 11/17/19 22 11/17/2021 CBC/C OMPLE TE BLD COUNT W/DIF F hemoglobin 15.8 g/dL 12.0-1 5.[address] [facility] (Lab) [address] [place], [address], 11/17/2021 14:42:42 11/17/19 22 11/17/2021 CBC/C OMPLE TE BLD COUNT W/DIF F hematocrit 49.1 % 35.7-4 5.[address] [facility] (Lab) [address] [place], [address], 11/17/2021 14:42:42 11/17/19 22 11/17/2021 CBC/C OMPLE TE BLD COUNT W/DIF F mean red cell hemoglobin 28.6 pg 27.0-[address] [facility] (Lab) [address] [place], [address], 11/17/2021 14:42:42 11/17/19 22 11/17/2021 CBC/C OMPLE TE BLD COUNT W/DIF F mean RBC HGB concentratio n 32.2 g/dL 31.0-[address] [facility] (Lab) [address] [place], [address], 11/17/2021 14:42:42 11/17/19 22 11/17/2021 CBC/C OMPLE TE BLD COUNT W/DIF F red cell distribution width 13.9 % 11.8-[address] [facility] (Lab) [address] [place], [address], 11/17/2021 14:42:42 11/17/19 22 11/17/2021 CBC/C OMPLE TE BLD COUNT W/DIF F platelets 355 x10'3 /uL 150-[address] [facility] (Lab) [address] [place], [address], 11/17/2021 14:42:42 11/17/19 22 11/17/2021 CBC/C OMPLE TE BLD COUNT W/DIF F mean platelet volume 10.3 fL 9.0-[address] [facility] (Lab) [address] [place], [address], 11/17/2021 14:42:42 11/17/19 22 11/17/2021 CBC/C OMPLE TE BLD COUNT W/DIF F neutrophils 65.0 % 39.0-7 2.0 Not Available [facility] (Lab) [address] [place], [address], 11/17/2021 14:42:42 11/17/19 22 11/17/2021 CBC/C OMPLE TE BLD COUNT W/DIF F lymphocytes 25.4 % 16.0-4 7.0 Not Available [facility] (Lab) [address] [place], [address], 11/17/2021 14:42:42 11/17/19 22 11/17/2021 CBC/C OMPLE TE BLD COUNT W/DIF F monocytes 7.1 % 5.0-12 .0 Not Available [facility] (Lab) [address] [place], [address], 11/17/2021 14:42:42 11/17/19 22 11/17/2021 CBC/C OMPLE TE BLD COUNT W/DIF F eosinophils 1.4 % 1.0-7. [address] [facility] (Lab) [address] [place], [address], 11/17/2021 14:42:42 11/17/19 22 11/17/2021 CBC/C OMPLE TE BLD COUNT W/DIF F basophils 0.7 % 0.0-2. [address] [facility] (Lab) [address] [place], [address], 11/17/2021 14:42:42 11/17/19 22 11/17/2021 CBC/C OMPLE TE BLD COUNT W/DIF F immature granulocytes 0.4 % 0.00-[address] [facility] (Lab) [address] [place], [address], 11/17/2021 14:42:42 11/17/19 22 11/17/2021 CBC/C OMPLE TE BLD COUNT W/DIF F neutrophils, absolute count 5.92 x10'3 /uL 1.5-8. [address] [facility] (Lab) [address] [place], [address], 11/17/2021 14:42:42 11/17/19 22 11/17/2021 CBC/C OMPLE TE BLD COUNT W/DIF F lymphocytes, absolute count 2.31 x10'3 /uL 1.07-[address] [facility] (Lab) [address] [place], [address], 11/17/2021 14:42:42 11/17/19 22 11/17/2021 CBC/C OMPLE TE BLD COUNT W/DIF F monocytes, absolute count 0.65 x10'3 /uL 0.29-[address] [facility] (Lab) [address] [place], [address], 11/17/2021 14:42:42 11/17/19 22 11/17/2021 CBC/C OMPLE TE BLD COUNT W/DIF F eosinophils, absolute count 0.13 x10'3 /uL 0.02-[address] [facility] (Lab) [address] [place], [address], 11/17/2021 14:42:42 11/17/19 22 11/17/2021 CBC/C OMPLE TE BLD COUNT W/DIF F basophils, absolute count 0.06 x10'3 /uL 0.01-[address] [facility] (Lab) [address] [place], [address], 11/17/2021 14:42:42 11/17/19 22 11/17/2021 CBC/C OMPLE TE BLD COUNT W/DIF F immature granulocytes ,absolute 0.04 x10'3 /uL 0.00-[address] [facility] (Lab) [address] [place], [address], 11/17/2021 14:42:42 11/17/19 22 11/17/2021 CBC/C OMPLE TE BLD COUNT W/DIF F nucleated red blood cells 0.0 % -0 Not Available [facility] (Lab) [address] [place], [address], 11/17/2021 14:42:42 11/17/19 22 11/17/2021 CBC/C OMPLE TE BLD COUNT W/DIF F NRBC# 0.00 x10'3 /uL Not Available [facility] (Lab) [address] [place], [address], 11/17/2021 14:42:42 02/04/20 22 02/03/2022 TSH thyroid-stim ulating hormone 1.150 uIU/m L 0.465- 4.[address] [facility] (Lab) [address] [place], [address], 02/03/2022 13:44:40 02/04/20 22 02/03/2022 COMPR EHENS SARAH METAB OLIC PANEL carbon dioxide 29 mmol/ L 22-[address] [facility] (Lab) [address] [place], [address], 02/03/2022 13:16:55 02/04/20 22 02/03/2022 COMPR EHENS SARAH METAB OLIC PANEL sodium 139 mmol/ L 137-[address] [facility] (Lab) [address] [place], [address], 02/03/2022 13:16:55 02/04/20 22 02/03/2022 COMPR EHENS SARAH METAB OLIC PANEL potassium 4.8 mmol/ L 3.5-5. [address] [facility] (Lab) [address] [place], [address], 02/03/2022 13:16:55 02/04/20 22 02/03/2022 COMPR EHENS SARAH METAB OLIC PANEL chloride 101 mmol/ L 98-[address] [facility] (Lab) [address] [facility] [place] [place], [address], 02/03/2022 13:16:55 02/04/20 22 02/03/2022 COMPR EHENS SARAH METAB OLIC PANEL anion gap 13.8 mmol/ L 14-[address] [facility] (Lab) [address] [place], [address], 02/03/2022 13:16:55 02/04/20 22 02/03/2022 COMPR EHENS SARAH METAB OLIC PANEL glucose 97 mg/dL 70-[address] [facility] (Lab) [address] [place], [address], 02/03/2022 13:16:55 02/04/20 22 02/03/2022 COMPR EHENS SARAH METAB OLIC PANEL BUN 16 mg/dL 8-[address] [facility] (Lab) [address] [place], [address], 02/03/2022 13:16:55 02/04/20 22 02/03/2022 COMPR EHENS SARAH METAB OLIC PANEL creatinine 0.97 mg/dL 0.66-[address] [facility] (Lab) [address] [place], [address], 02/03/2022 13:16:55 02/04/20 22 02/03/2022 COMPR EHENS SARAH METAB OLIC PANEL GFR >60 Refer ence Range : Jerome ge GFR Healt hy Adult : >60 [...] calcu lator is avail able on the [facility] websi te: https :[email or web address] lares.alexa abbott.o rg/pr ofess ional s/kdo qi/gf r_cal culat or Not Available [facility] (Lab) [address] [place], [address], 02/03/2022 13:16:55 02/04/20 22 02/03/2022 COMPR EHENS SARAH METAB OLIC PANEL alkaline phosphatase 92 U/L 38-126 Not Available [facility] (Lab) [address] [place], [address], 02/03/2022 13:16:55 02/04/20 22 02/03/2022 COMPR EHENS SARAH METAB OLIC PANEL alanine aminotransfe rase 41 U/L 0-35 high Not Available [facility] (Lab) [address] [place], [address], 02/03/2022 13:16:55 02/04/20 22 02/03/2022 COMPR EHENS SARAH METAB OLIC PANEL aspartate aminotransfe rase 31 U/L 15-37 Not Available [facility] (Lab) [address] [place], [address], 02/03/2022 13:16:55 02/04/20 22 02/03/2022 COMPR EHENS SARAH METAB OLIC PANEL bilirubin, total 0.30 mg/dL 0.20-[address] [facility] (Lab) [address] [place], [address], 02/03/2022 13:16:55 02/04/20 22 02/03/2022 COMPR EHENS SARAH METAB OLIC PANEL calcium 10.8 mg/dL 8.4-10 [address] [facility] (Lab) [address] [place], [address], 02/03/2022 13:16:55 02/04/20 22 02/03/2022 COMPR EHENS SARAH METAB OLIC PANEL total protein 7.9 g/dL 6.3-8. 2 Not Available [facility] (Lab) [address] [place], [address], 02/03/2022 13:16:55 02/04/20 22 02/03/2022 COMPR EHENS SARAH METAB OLIC PANEL albumin 4.7 g/dL 3.4-5. [address] [facility] (Lab) [address] [place], [address], 02/03/2022 13:16:55 02/04/20 22 02/03/2022 COMPR EHENS SARAH METAB OLIC PANEL globulin 3.2 g/dL 2.6-4. [address] [facility] (Lab) [address] [place], [address], 02/03/2022 13:16:55 02/04/20 22 02/03/2022 COMPR EHENS SARAH METAB OLIC PANEL A/G ratio 1.5 ratio 1.0-2. [address] [facility] (Lab) [address] [place], [address], 02/03/2022 13:16:55 02/04/20 22 02/03/2022 MAGNE SIUM magnesium 1.9 mg/dL 1.6-2. 3 Not Available [facility] (Lab) [address] [facility] [place], [address], 02/03/2022 13:16:44 02/04/20 22 02/03/2022 CBC/C OMPLE TE BLD COUNT W/DIF F mean red cell volume 89.9 fL 82.0-9 9.0 Not Available [facility] (Lab) [address] [place], [address], 02/03/2022 12:45:14 02/04/20 22 02/03/2022 CBC/C OMPLE TE BLD COUNT W/DIF F white blood cells 9.0 x10'3 /uL 4.2-[address] [facility] (Lab) [address] [place], [address], 02/03/2022 12:45:14 02/04/20 22 02/03/2022 CBC/C OMPLE TE BLD COUNT W/DIF F red blood cells 5.64 x10'6 /uL 3.80-5 [address] [facility] (Lab) [address] [place], [address], 02/03/2022 12:45:14 02/04/20 22 02/03/2022 CBC/C OMPLE TE BLD COUNT W/DIF F hemoglobin 16.2 g/dL 12.0-1 5.[address] [facility] (Lab) [address] [place], [address], 02/03/2022 12:45:14 02/04/20 22 02/03/2022 CBC/C OMPLE TE BLD COUNT W/DIF F hematocrit 50.7 % 35.7-4 5.[address] [facility] (Lab) [address] [place], [address], 02/03/2022 12:45:14 02/04/20 22 02/03/2022 CBC/C OMPLE TE BLD COUNT W/DIF F mean red cell hemoglobin 28.7 pg 27.0-[address] [facility] (Lab) [address] [place], [address], 02/03/2022 12:45:14 02/04/20 22 02/03/2022 CBC/C OMPLE TE BLD COUNT W/DIF F mean RBC HGB concentratio n 32.0 g/dL 31.0-[address] [facility] (Lab) [address] [place], [address], 02/03/2022 12:45:14 02/04/20 22 02/03/2022 CBC/C OMPLE TE BLD COUNT W/DIF F red cell distribution width 13.3 % 11.8-[address] [facility] (Lab) [address] [place], [address], 02/03/2022 12:45:14 02/04/20 22 02/03/2022 CBC/C OMPLE TE BLD COUNT W/DIF F platelets 372 x10'3 /uL 150-[address] [facility] (Lab) [address] [place], [address], 02/03/2022 12:45:14 02/04/20 22 02/03/2022 CBC/C OMPLE TE BLD COUNT W/DIF F mean platelet volume 10.2 fL 9.0-[address] [facility] (Lab) [address] [place], [address], 02/03/2022 12:45:14 02/04/20 22 02/03/2022 CBC/C OMPLE TE BLD COUNT W/DIF F neutrophils 67.6 % 39.0-[address] [facility] (Lab) [address] [place], [address], 02/03/2022 12:45:14 02/04/20 22 02/03/2022 CBC/C OMPLE TE BLD COUNT W/DIF F lymphocytes 24.5 % 16.0-[address] [facility] (Lab) [address] [place], [address], 02/03/2022 12:45:14 02/04/20 22 02/03/2022 CBC/C OMPLE TE BLD COUNT W/DIF F monocytes 6.1 % 5.0-[address] [facility] (Lab) [address] [place], [address], 02/03/2022 12:45:14 02/04/20 22 02/03/2022 CBC/C OMPLE TE BLD COUNT W/DIF F eosinophils 0.9 % 1.0-7. [address] [facility] (Lab) [address] [place], [address], 02/03/2022 12:45:14 02/04/20 22 02/03/2022 CBC/C OMPLE TE BLD COUNT W/DIF F basophils 0.6 % 0.0-2. [address] [facility] (Lab) [address] [place], [address], 02/03/2022 12:45:14 02/04/20 22 02/03/2022 CBC/C OMPLE TE BLD COUNT W/DIF F immature granulocytes 0.3 % 0.00-[address] [facility] (Lab) [address] [place], [address], 02/03/2022 12:45:14 02/04/20 22 02/03/2022 CBC/C OMPLE TE BLD COUNT W/DIF F neutrophils, absolute count 6.08 x10'3 /uL 1.5-8. [address] [facility] (Lab) [address] [place], [address], 02/03/2022 12:45:14 02/04/20 22 02/03/2022 CBC/C OMPLE TE BLD COUNT W/DIF F lymphocytes, absolute count 2.20 x10'3 /uL 1.07-[address] [facility] (Lab) [address] [place], [address], 02/03/2022 12:45:14 02/04/20 22 02/03/2022 CBC/C OMPLE TE BLD COUNT W/DIF F monocytes, absolute count 0.55 x10'3 /uL 0.29-[address] [facility] (Lab) [address] [place], [address], 02/03/2022 12:45:14 02/04/20 22 02/03/2022 CBC/C OMPLE TE BLD COUNT W/DIF F eosinophils, absolute count 0.08 x10'3 /uL 0.02-[address] [facility] (Lab) [address] [place], [address], 02/03/2022 12:45:14 02/04/20 22 02/03/2022 CBC/C OMPLE TE BLD COUNT W/DIF F basophils, absolute count 0.05 x10'3 /uL 0.01-[address] [facility] (Lab) [address] [place], [address], 02/03/2022 12:45:14 02/04/20 22 02/03/2022 CBC/C OMPLE TE BLD COUNT W/DIF F immature granulocytes ,absolute 0.03 x10'3 /uL 0.00-[address] [facility] (Lab) [address] [place], [address], 02/03/2022 12:45:14 02/04/20 22 02/03/2022 CBC/C OMPLE TE BLD COUNT W/DIF F nucleated red blood cells 0.0 % -0 Not Available [facility] (Lab) [address] [place], [address], 02/03/2022 12:45:14 02/04/20 22 02/03/2022 CBC/C OMPLE TE BLD COUNT W/DIF F NRBC# 0.00 x10'3 /uL Not Available [facility] (Lab) [address] [facility] [place], [address], 02/03/2022 12:45:14 02/14/20 22 02/13/2022 CBC/C OMPLE TE BLD COUNT W/DIF F hemoglobin 14.9 g/dL 12.0-[address] [facility] (Lab) [address] [place], [address], 02/13/2022 16:34:06 02/14/20 22 02/13/2022 CBC/C OMPLE TE BLD COUNT W/DIF F white blood cells 10.4 x10'3 /uL 4.2-[address] [facility] (Lab) [address] [place], [address], 02/13/2022 16:34:06 02/14/20 22 02/13/2022 CBC/C OMPLE TE BLD COUNT W/DIF F red blood cells 5.14 x10'6 /uL 3.80-[address] [facility] (Lab) [address] [place], [address], 02/13/2022 16:34:06 02/14/20 22 02/13/2022 CBC/C OMPLE TE BLD COUNT W/DIF F hematocrit 46.5 % 35.7-4 5[address] [facility] (Lab) [address] [place], [address], 02/13/2022 16:34:06 02/14/20 22 02/13/2022 CBC/C OMPLE TE BLD COUNT W/DIF F mean red cell volume 90.5 fL 82.0-[address] [facility] (Lab) [address] [place], [address], 02/13/2022 16:34:06 02/14/20 22 02/13/2022 CBC/C OMPLE TE BLD COUNT W/DIF F mean red cell hemoglobin 29.0 pg 27.0-[address] [facility] (Lab) [address] [place], [address], 02/13/2022 16:34:06 02/14/20 22 02/13/2022 CBC/C OMPLE TE BLD COUNT W/DIF F mean platelet volume 10.3 fL 9.0-[address] [facility] (Lab) [address] [place], [address], 02/13/2022 16:34:06 02/14/20 22 02/13/2022 CBC/C OMPLE TE BLD COUNT W/DIF F mean RBC HGB concentratio n 32.0 g/dL 31.0-[address] [facility] (Lab) [address] [place], [address], 02/13/2022 16:34:06 02/14/20 22 02/13/2022 CBC/C OMPLE TE BLD COUNT W/DIF F red cell distribution width 13.2 % 11.8-[address] [facility] (Lab) [address] [place], [address], 02/13/2022 16:34:06 02/14/20 22 02/13/2022 CBC/C OMPLE TE BLD COUNT W/DIF F platelets 335 x10'3 /uL 150-[address] [facility] (Lab) [address] [place], [address], 02/13/2022 16:34:06 02/14/20 22 02/13/2022 CBC/C OMPLE TE BLD COUNT W/DIF F neutrophils 72.3 % 39.0-7 [address] [facility] (Lab) [address] [place], [address], 02/13/2022 16:34:06 02/14/20 22 02/13/2022 CBC/C OMPLE TE BLD COUNT W/DIF F lymphocytes 21.6 % 16.0-[address] [facility] (Lab) [address] [place], [address], 02/13/2022 16:34:06 02/14/20 22 02/13/2022 CBC/C OMPLE TE BLD COUNT W/DIF F monocytes 4.2 % 5.0-12 [address] [facility] (Lab) [address] [place], [address], 02/13/2022 16:34:06 02/14/20 22 02/13/2022 CBC/C OMPLE TE BLD COUNT W/DIF F eosinophils 0.9 % 1.0-7. [address] [facility] (Lab) [address] [place], [address], 02/13/2022 16:34:06 02/14/20 22 02/13/2022 CBC/C OMPLE TE BLD COUNT W/DIF F basophils 0.6 % 0.0-2. [address] [facility] (Lab) [address] [place], [address], 02/13/2022 16:34:06 02/14/20 22 02/13/2022 CBC/C OMPLE TE BLD COUNT W/DIF F immature granulocytes 0.4 % 0.00-[address] [facility] (Lab) [address] [place], [address], 02/13/2022 16:34:06 02/14/20 22 02/13/2022 CBC/C OMPLE TE BLD COUNT W/DIF F neutrophils, absolute count 7.52 x10'3 /uL 1.5-8. [address] [facility] (Lab) [address] [place], [address], 02/13/2022 16:34:06 02/14/20 22 02/13/2022 CBC/C OMPLE TE BLD COUNT W/DIF F lymphocytes, absolute count 2.25 x10'3 /uL 1.07-[address] [facility] (Lab) [address] [place], [address], 02/13/2022 16:34:06 02/14/20 22 02/13/2022 CBC/C OMPLE TE BLD COUNT W/DIF F monocytes, absolute count 0.44 x10'3 /uL 0.29-[address] [facility] (Lab) [address] [place], [address], 02/13/2022 16:34:06 02/14/20 22 02/13/2022 CBC/C OMPLE TE BLD COUNT W/DIF F eosinophils, absolute count 0.09 x10'3 /uL 0.02-[address] [facility] (Lab) [address] [place], [address], 02/13/2022 16:34:06 02/14/20 22 02/13/2022 CBC/C OMPLE TE BLD COUNT W/DIF F basophils, absolute count 0.06 x10'3 /uL 0.01-[address] [facility] (Lab) [address] [place], [address], 02/13/2022 16:34:06 02/14/20 22 02/13/2022 CBC/C OMPLE TE BLD COUNT W/DIF F immature granulocytes ,absolute 0.04 x10'3 /uL 0.00-[address] [facility] (Lab) [address] [place], [address], 02/13/2022 16:34:06 02/14/20 22 02/13/2022 CBC/C OMPLE TE BLD COUNT W/DIF F nucleated red blood cells 0.0 % -0 Not Available [facility] (Lab) [address] [place], [address], 02/13/2022 16:34:06 02/14/20 22 02/13/2022 CBC/C OMPLE TE BLD COUNT W/DIF F NRBC# 0.00 x10'3 /uL Not Available [facility] (Lab) [address] [place], [address], 02/13/2022 16:34:06 06/28/20 23 06/28/2023 CBC/C OMPLE TE BLD COUNT W/DIF F white blood cells 10.2 x10'3 /uL 4.2-[address] [facility] (Lab) [address] [place], [address], 06/28/2023 18:19:35 06/28/20 23 06/28/2023 CBC/C OMPLE TE BLD COUNT W/DIF F red blood cells 5.36 x10'6 /uL 3.80-5 [address] [facility] (Lab) [address] [place], [address], 06/28/2023 18:19:35 06/28/20 23 06/28/2023 CBC/C OMPLE TE BLD COUNT W/DIF F hemoglobin 15.4 g/dL 12.0-[address] [facility] (Lab) [address] [place], [address], 06/28/2023 18:19:35 06/28/20 23 06/28/2023 CBC/C OMPLE TE BLD COUNT W/DIF F hematocrit 48.4 % 35.7-4 5[address] [facility] (Lab) [address] [place], [address], 06/28/2023 18:19:35 06/28/20 23 06/28/2023 CBC/C OMPLE TE BLD COUNT W/DIF F mean red cell volume 90.3 fL 82.0-9 9.0 Not Available [facility] (Lab) [address] [place], [address], 06/28/2023 18:19:35 06/28/20 23 06/28/2023 CBC/C OMPLE TE BLD COUNT W/DIF F mean red cell hemoglobin 28.7 pg 27.0-[address] [facility] (Lab) [address] [place], [address], 06/28/2023 18:19:35 06/28/20 23 06/28/2023 CBC/C OMPLE TE BLD COUNT W/DIF F mean RBC HGB concentratio n 31.8 g/dL 31.0-3 6.0 Not Available [facility] (Lab) [address] [place], [address], 06/28/2023 18:19:35 06/28/2006/28/2023 CBC/C OMPLE TE BLD COUNT W/DIF F red cell distribution width 13.5 % 11.8-[address] [facility] (Lab) [address] [place], [address], 06/28/2023 18:19:35 06/28/2006/28/2023 CBC/C OMPLE TE BLD COUNT W/DIF F platelets 332 x10'3 /uL 150-[address] [facility] (Lab) [address] [place], [address], 06/28/2023 18:19:35 06/28/2006/28/2023 CBC/C OMPLE TE BLD COUNT W/DIF F mean platelet volume 10.2 fL 9.0-12 .4 Not Available [facility] (Lab) [address] [place], [address], 06/28/2023 18:19:35 06/28/20 23 06/28/2023 CBC/C OMPLE TE BLD COUNT W/DIF F neutrophils 66.9 % 39.0-7 2.0 Not Available [facility] (Lab) [address] [place], [address], 06/28/2023 18:19:35 06/28/2006/28/2023 CBC/C OMPLE TE BLD COUNT W/DIF F lymphocytes 23.3 % 16.0-[address] [facility] (Lab) [address] [place], [address], 06/28/2023 18:19:35 06/28/2006/28/2023 CBC/C OMPLE TE BLD COUNT W/DIF F monocytes 7.9 % 5.0-12 .0 Not Available [facility] (Lab) [address] [place], [address], 06/28/2023 18:19:35 06/28/2006/28/2023 CBC/C OMPLE TE BLD COUNT W/DIF F eosinophils 0.9 % 1.0-7. 0 low Not Available [facility] (Lab) [address] [place], [address], 06/28/2023 18:19:35 06/28/2006/28/2023 CBC/C OMPLE TE BLD COUNT W/DIF F basophils 0.6 % 0.0-2. [address] [facility] (Lab) [address] [place], [address], 06/28/2023 18:19:35 06/28/2006/28/2023 CBC/C OMPLE TE BLD COUNT W/DIF F immature granulocytes 0.4 % 0.00-[address] [facility] (Lab) [address] [place], [address], 06/28/2023 18:19:35 06/28/20 23 06/28/2023 CBC/C OMPLE TE BLD COUNT W/DIF F neutrophils, absolute count 6.85 x10'3 /uL 1.5-8. [address] [facility] (Lab) [address] [place], [address], 06/28/2023 18:19:35 06/28/2006/28/2023 CBC/C OMPLE TE BLD COUNT W/DIF F lymphocytes, absolute count 2.38 x10'3 /uL 1.07-[address] [facility] (Lab) [address] [place], [address], 06/28/2023 18:19:35 06/28/20 23 06/28/2023 CBC/C OMPLE TE BLD COUNT W/DIF F monocytes, absolute count 0.81 x10'3 /uL 0.29-[address] [facility] (Lab) [address] [place], [address], 06/28/2023 18:19:35 06/28/2006/28/2023 CBC/C OMPLE TE BLD COUNT W/DIF F eosinophils, absolute count 0.09 x10'3 /uL 0.02-[address] [facility] (Lab) [address] [place], [address], 06/28/2023 18:19:35 06/28/20 23 06/28/2023 CBC/C OMPLE TE BLD COUNT W/DIF F basophils, absolute count 0.06 x10'3 /uL 0.01-[address] [facility] (Lab) [address] [place], [address], 06/28/2023 18:19:35 06/28/20 23 06/28/2023 CBC/C OMPLE TE BLD COUNT W/DIF F immature granulocytes ,absolute 0.04 x10'3 /uL 0.00-[address] [facility] (Lab) [address] [place], [address], 06/28/2023 18:19:35 06/28/20 23 06/28/2023 CBC/C OMPLE TE BLD COUNT W/DIF F nucleated red blood cells 0.0 % -0 Not Available [facility] (Lab) [address] [facility] [place] [place], [address], 06/28/2023 18:19:35 06/28/20 23 06/28/2023 CBC/C OMPLE TE BLD COUNT W/DIF F NRBC# 0.00 x10'3 /uL Not Available [facility] (Lab) [address] [place], [address], 06/28/2023 18:19:35 06/28/20 23 06/28/2023 URINE MICRO SCOPI C EXAM/ IRIS white blood cells 0-8 /i??h pfi?? 0-[address] [facility] (Lab) [address] [place], [address], 06/28/2023 18:35:27 06/28/2006/28/2023 URINE MICRO SCOPI C EXAM/ IRIS red blood cells 0-4 /i??h pfi?? 0-[address] [facility] (Lab) [address] [place], [address], 06/28/2023 18:35:27 06/28/20 23 06/28/2023 URINE MICRO SCOPI C EXAM/ IRIS bacteria MODERA TE abnormal Not Available [facility] (Lab) [address] [place], [address], 06/28/2023 18:35:27 06/28/20 23 06/28/2023 URINE MICRO SCOPI C EXAM/ IRIS mucous OCCASI ONAL /i??l pfi?? abnormal Not Available [facility] (Lab) [address] [place], [address], 06/28/2023 18:35:27 06/28/20 23 06/28/2023 URINE MICRO SCOPI C EXAM/ IRIS squamous epithelial MANY /i??l pfi?? abnormal Not Available [facility] (Lab) [address] [place], [address], 06/28/2023 18:35:27 06/28/2006/28/2023 LIPID PANEL cholesterol 274 mg/dL 140-19 9 high NIH TONI NSUS RECOM MENDA TION FOR MERCEDES STERO L: ADULT CHILD LOW RISK: <200 <170 BORDE RLINE : <200- 239 ----- HIGH RISK: >240 >[address] [facility] (Lab) [address] [place], [address], 06/28/2023 19:06:36 06/28/2006/28/2023 LIPID PANEL triglyceride s 206 mg/dL 0-150 high NIH TONI NSUS REPOR T RECOM MENDA TION FOR TRIGL YCERI ASHLEY: ADULT CHILD LOW RISK: <150 ----- BODER LINE: 150-1 99 ----- HIGH RISK: >200 ----- Not Available [facility] (Lab) [address] [place], [address], 06/28/2023 19:06:36 06/28/2006/28/2023 LIPID PANEL HDL cholesterol 49 mg/dL 40- Not Available [facility] (Lab) [address] [place], [address], 06/28/2023 19:06:36 06/28/20 23 06/28/2023 LIPID PANEL [...] WILL NOT BE REPOR CHETAN. Not Available [facility] (Lab) [address] [place], [address], 06/28/2023 19:06:36 06/28/20 23 06/28/2023 COMPR EHENS SARAH METAB OLIC PANEL sodium 136 mmol/ L 137-[address] [facility] (Lab) [address] [place], [address], 06/28/2023 19:06:51 06/28/2006/28/2023 COMPR EHENS SARAH METAB OLIC PANEL potassium 4.4 mmol/ L 3.5-5. 1 Not Available [facility] (Lab) [address] [place], [address], 06/28/2023 19:06:51 06/28/20 23 06/28/2023 COMPR EHENS SARAH METAB OLIC PANEL chloride 99 mmol/ L 98-[address] [facility] (Lab) [address] [place], [address], 06/28/2023 19:06:51 06/28/20 23 06/28/2023 COMPR EHENS SARAH METAB OLIC PANEL carbon dioxide 29 mmol/ L 22-[address] [facility] (Lab) [address] [place], [address], 06/28/2023 19:06:51 06/28/20 23 06/28/2023 COMPR EHENS SARAH METAB OLIC PANEL anion gap 12.4 mmol/ L 14-[address] [facility] (Lab) [address] [place], [address], 06/28/2023 19:06:51 06/28/20 23 06/28/2023 COMPR EHENS SARAH METAB OLIC PANEL glucose 88 mg/dL 70-[address] [facility] (Lab) [address] [place], [address], 06/28/2023 19:06:51 06/28/20 23 06/28/2023 COMPR EHENS SARAH METAB OLIC PANEL BUN 21 mg/dL 8-[address] [facility] (Lab) [address] [place], [address], 06/28/2023 19:06:51 06/28/20 23 06/28/2023 COMPR EHENS SARAH METAB OLIC PANEL creatinine 1.00 mg/dL 0.66-[address] [facility] (Lab) [address] [place], [address], 06/28/2023 19:06:51 06/28/20 23 06/28/2023 COMPR EHENS SARAH METAB OLIC PANEL GFR 58 Refer ence Range : Jerome ge GFR Healt hy Adult : >60 [...] calcu lator is avail able on the [facility] websi te: [email or web address] :[email or web address] ofess ional s/kdo qi/gf r_cal culat or Not Available [facility] (Lab) [address] [place], [address], 06/28/2023 19:06:51 06/28/2006/28/2023 COMPR EHENS SARAH METAB OLIC PANEL alkaline phosphatase 72 U/L 38-126 Not Available [facility] (Lab) [address] [place], [address], 06/28/2023 19:06:51 06/28/2006/28/2023 COMPR EHENS SARAH METAB OLIC PANEL alanine aminotransfe rase 24 U/L 0-35 Not Available [facility] (Lab) [address] [place], [address], 06/28/2023 19:06:51 06/28/20 23 06/28/2023 COMPR EHENS SARAH METAB OLIC PANEL aspartate aminotransfe rase 20 U/L 15-37 Not Available [facility] (Lab) [address] [place], [address], 06/28/2023 19:06:51 06/28/2006/28/2023 COMPR EHENS SARAH METAB OLIC PANEL bilirubin, total 0.20 mg/dL 0.20-[address] [facility] (Lab) [address] [place], [address], 06/28/2023 19:06:51 06/28/2006/28/2023 COMPR EHENS SARAH METAB OLIC PANEL calcium 10.3 mg/dL 8.4-10 .[address] [facility] (Lab) [address] [place], [address], 06/28/2023 19:06:51 06/28/20 23 06/28/2023 COMPR EHENS SARAH METAB OLIC PANEL total protein 7.6 g/dL 6.3-8. [address] [facility] (Lab) [address] [place], [address], 06/28/2023 19:06:51 06/28/20 23 06/28/2023 COMPR EHENS SARAH METAB OLIC PANEL albumin 4.6 g/dL 3.4-5. [address] [facility] (Lab) [address] [place], [address], 06/28/2023 19:06:51 06/28/20 23 06/28/2023 COMPR EHENS SARAH METAB OLIC PANEL globulin 3.0 g/dL 2.6-4. [address] [facility] (Lab) [address] [place], [address], 06/28/2023 19:06:51 06/28/20 23 06/28/2023 COMPR EHENS SARAH METAB OLIC PANEL A/G ratio 1.5 ratio 1.0-2. [address] [facility] (Lab) [address] [place], [address], 06/28/2023 19:06:51 04/22/20 24 04/22/2024 CBC/C OMPLE TE BLD COUNT W/DIF F white blood cells 7.4 x10'3 /uL 4.2-[address] [facility] (Lab) [address] [place], [address], 04/22/2024 11:05:39 04/22/20 24 04/22/2024 CBC/C OMPLE TE BLD COUNT W/DIF F red blood cells 5.21 x10'6 /uL 3.80-5 .[address] [facility] (Lab) [address] [place], [address], 04/22/2024 11:05:39 04/22/20 24 04/22/2024 CBC/C OMPLE TE BLD COUNT W/DIF F hemoglobin 15.1 g/dL 12.0-1 5.6 Not Available [facility] (Lab) [address] [place], [address], 04/22/2024 11:05:39 04/22/20 24 04/22/2024 CBC/C OMPLE TE BLD COUNT W/DIF F hematocrit 47.1 % 35.7-4 5.[address] [facility] (Lab) [address] [place], [address], 04/22/2024 11:05:39 04/22/20 24 04/22/2024 CBC/C OMPLE TE BLD COUNT W/DIF F mean red cell volume 90.4 fL 82.0-9 9.0 Not Available [facility] (Lab) [address] [place], [address], 04/22/2024 11:05:39 04/22/20 24 04/22/2024 CBC/C OMPLE TE BLD COUNT W/DIF F mean red cell hemoglobin 29.0 pg 27.0-[address] [facility] (Lab) [address] [place], [address], 04/22/2024 11:05:39 04/22/20 24 04/22/2024 CBC/C OMPLE TE BLD COUNT W/DIF F mean RBC HGB concentratio n 32.1 g/dL 31.0-[address] [facility] (Lab) [address] [place], [address], 04/22/2024 11:05:39 04/22/20 24 04/22/2024 CBC/C OMPLE TE BLD COUNT W/DIF F red cell distribution width 13.8 % 11.8-[address] [facility] (Lab) [address] [place], [address], 04/22/2024 11:05:39 04/22/20 24 04/22/2024 CBC/C OMPLE TE BLD COUNT W/DIF F platelets 327 x10'3 /uL 150-[address] [facility] (Lab) [address] [place], [address], 04/22/2024 11:05:39 04/22/20 24 04/22/2024 CBC/C OMPLE TE BLD COUNT W/DIF F mean platelet volume 10.7 fL 9.0-[address] [facility] (Lab) [address] [place], [address], 04/22/2024 11:05:39 04/22/20 24 04/22/2024 CBC/C OMPLE TE BLD COUNT W/DIF F neutrophils 62.1 % 39.0-7 2.0 Not Available [facility] (Lab) [address] [place], [address], 04/22/2024 11:05:39 04/22/20 24 04/22/2024 CBC/C OMPLE TE BLD COUNT W/DIF F lymphocytes 28.2 % 16.0-[address] [facility] (Lab) [address] [place], [address], 04/22/2024 11:05:39 04/22/20 24 04/22/2024 CBC/C OMPLE TE BLD COUNT W/DIF F monocytes 7.6 % 5.0-[address] [facility] (Lab) [address] [place], [address], 04/22/2024 11:05:39 04/22/20 24 04/22/2024 CBC/C OMPLE TE BLD COUNT W/DIF F eosinophils 1.2 % 1.0-7. [address] [facility] (Lab) [address] [place], [address], 04/22/2024 11:05:39 04/22/20 24 04/22/2024 CBC/C OMPLE TE BLD COUNT W/DIF F basophils 0.5 % 0.0-2. [address] [facility] (Lab) [address] [place], [address], 04/22/2024 11:05:39 04/22/20 24 04/22/2024 CBC/C OMPLE TE BLD COUNT W/DIF F immature granulocytes 0.4 % 0.00-[address] [facility] (Lab) [address] [place], [address], 04/22/2024 11:05:39 04/22/20 24 04/22/2024 CBC/C OMPLE TE BLD COUNT W/DIF F neutrophils, absolute count 4.58 x10'3 /uL 1.5-8. [address] [facility] (Lab) [address] [place], [address], 04/22/2024 11:05:39 04/22/20 24 04/22/2024 CBC/C OMPLE TE BLD COUNT W/DIF F lymphocytes, absolute count 2.08 x10'3 /uL 1.07-[address] [facility] (Lab) [address] [place], [address], 04/22/2024 11:05:39 04/22/20 24 04/22/2024 CBC/C OMPLE TE BLD COUNT W/DIF F monocytes, absolute count 0.56 x10'3 /uL 0.29-[address] [facility] (Lab) [address] [place], [address], 04/22/2024 11:05:39 04/22/20 24 04/22/2024 CBC/C OMPLE TE BLD COUNT W/DIF F eosinophils, absolute count 0.09 x10'3 /uL 0.02-[address] [facility] (Lab) [address] [place], [address], 04/22/2024 11:05:39 04/22/20 24 04/22/2024 CBC/C OMPLE TE BLD COUNT W/DIF F basophils, absolute count 0.04 x10'3 /uL 0.01-[address] [facility] (Lab) [address] [place], [address], 04/22/2024 11:05:39 04/22/20 24 04/22/2024 CBC/C OMPLE TE BLD COUNT W/DIF F immature granulocytes ,absolute 0.03 x10'3 /uL 0.00-[address] [facility] (Lab) [address] [place], [address], 04/22/2024 11:05:39 04/22/20 24 04/22/2024 CBC/C OMPLE TE BLD COUNT W/DIF F nucleated red blood cells 0.0 % -0 Not Available [facility] (Lab) [address] [place], [address], 04/22/2024 11:05:39 04/22/20 24 04/22/2024 CBC/C OMPLE TE BLD COUNT W/DIF F NRBC# 0.00 x10'3 /uL Not Available [facility] (Lab) [address] [place], [address], 04/22/2024 11:05:39 04/22/20 24 04/22/2024 COMPR EHENS SARAH METAB OLIC PANEL sodium 137 mmol/ L 137-[address] [facility] (Lab) [address] [place], [address], 04/22/2024 11:29:38 04/22/20 24 04/22/2024 COMPR EHENS SARAH METAB OLIC PANEL potassium 4.6 mmol/ L 3.5-5. 1 Not Available [facility] (Lab) [address] [place], [address], 04/22/2024 11:29:38 04/22/20 24 04/22/2024 COMPR EHENS SARAH METAB OLIC PANEL chloride 106 mmol/ L 98-[address] [facility] (Lab) [address] [place], [address], 04/22/2024 11:29:38 04/22/20 24 04/22/2024 COMPR EHENS SARAH METAB OLIC PANEL carbon dioxide 27 mmol/ L 22-30 Not Available [facility] (Lab) [address] [place], [address], 04/22/2024 11:29:38 04/22/20 24 04/22/2024 COMPR EHENS SARAH METAB OLIC PANEL anion gap 8.6 mmol/ L 14-22 low Not Available [facility] (Lab) [address] [place], [address], 04/22/2024 11:29:38 04/22/20 24 04/22/2024 COMPR EHENS SARAH METAB OLIC PANEL glucose 114 mg/dL 70-99 high Not Available [facility] (Lab) [address] [place], [address], 04/22/2024 11:29:38 04/22/20 24 04/22/2024 COMPR EHENS SARAH METAB OLIC PANEL BUN 21 mg/dL 8-19 high Not Available [facility] (Lab) [address] [place], [address], 04/22/2024 11:29:38 04/22/20 24 04/22/2024 COMPR EHENS SARAH METAB OLIC PANEL creatinine 0.97 mg/dL 0.66-[address] [facility] (Lab) [address] [place], [address], 04/22/2024 11:29:38 04/22/20 24 04/22/2024 COMPR EHENS SARAH METAB OLIC PANEL GFR 60 Refer ence Range : Jerome ge GFR Healt hy Adult : >60 [...] calcu lator is avail able on the [facility] websi te: [email or web address] :[email or web address]/pr ofess ional s/kdo qi/gf r_cal culat or Not Available [facility] (Lab) [address] [place], [address], 04/22/2024 11:29:38 04/22/20 24 04/22/2024 COMPR EHENS SARAH METAB OLIC PANEL alkaline phosphatase 90 U/L 38-126 Not Available [facility] (Lab) [address] [place], [address], 04/22/2024 11:29:38 04/22/20 24 04/22/2024 COMPR EHENS SARAH METAB OLIC PANEL alanine aminotransfe rase 22 U/L 0-35 Not Available [facility] (Lab) [address] [place], [address], 04/22/2024 11:29:38 04/22/20 24 04/22/2024 COMPR EHENS SARAH METAB OLIC PANEL aspartate aminotransfe rase 23 U/L 15-37 Not Available [facility] (Lab) [address] [place], [address], 04/22/2024 11:29:38 04/22/20 24 04/22/2024 COMPR EHENS SARAH METAB OLIC PANEL bilirubin, total 0.70 mg/dL 0.20-[address] [facility] (Lab) [address] [place], [address], 04/22/2024 11:29:38 04/22/20 24 04/22/2024 COMPR EHENS SARAH METAB OLIC PANEL calcium 9.4 mg/dL 8.4-[address] [facility] (Lab) [address] [place], [address], 04/22/2024 11:29:38 04/22/20 24 04/22/2024 COMPR EHENS SARAH METAB OLIC PANEL total protein 7.1 g/dL 6.3-8. [address] [facility] (Lab) [address] [place], [address], 04/22/2024 11:29:38 04/22/20 24 04/22/2024 COMPR EHENS SARAH METAB OLIC PANEL albumin 4.4 g/dL 3.4-5. [address] [facility] (Lab) [address] [place], [address], 04/22/2024 11:29:38 04/22/20 24 04/22/2024 COMPR EHENS SARAH METAB OLIC PANEL globulin 2.7 g/dL 2.6-4. [address] [facility] (Lab) [address] [place], [address], 04/22/2024 11:29:38 04/22/20 24 04/22/2024 COMPR EHENS SARAH METAB OLIC PANEL A/G ratio 1.6 ratio 1.0-2. [address] [facility] (Lab) [address] [place], [address], 04/22/2024 11:29:38 04/22/20 24 04/22/2024 LIPID PANEL cholesterol 217 mg/dL 140-19 9 high NIH TONI NSUS RECOM MENDA TION FOR MERCEDES STERO L: ADULT CHILD LOW RISK: <200 <170 BORDE RLINE : <200- 239 ----- HIGH RISK: >240 >[address] [facility] (Lab) [address] [place], [address], 04/22/2024 11:29:44 04/22/20 24 04/22/2024 LIPID PANEL triglyceride s 114 mg/dL 0-150 NIH TONI NSUS REPOR T RECOM MENDA TION FOR TRIGL YCERI ASHLEY: ADULT CHILD LOW RISK: <150 ----- BODER LINE: 150-1 99 ----- HIGH RISK: >200 ----- Not Available [facility] (Lab) [address] [place], [address], 04/22/2024 11:29:44 04/22/20 24 04/22/2024 LIPID PANEL HDL cholesterol 48 mg/dL 40- Not Available [facility] (Lab) [address] [place], [address], 04/22/2024 11:29:44 04/22/20 24 04/22/2024 LIPID PANEL [...] WILL NOT BE REPOR CHETAN. Not Available [facility] (Lab) [address] [place], [address], 04/22/2024 11:29:44 04/22/20 24 04/22/2024 T3 FREE free T3 5.1 pg/mL 2.77-[address] [facility] (Lab) [address] [place], [address], 04/22/2024 11:46:35 04/22/20 24 04/22/2024 T4 FREE free T4 1.28 NG/dL 0.78-[address] [facility] (Lab) [address] [place], [address], 04/22/2024 11:46:44 04/22/20 24 04/22/2024 TSH thyroid-stim ulating hormone 1.680 uIU/m L 0.465- 4.[address] [facility] (Lab) [address] [place], [address], 04/22/2024 12:06:02 04/22/20 24 04/22/2024 HEMOG LOBIN A1C HA1C 5.8 % 4.0-6. 0 Diabe archie Scree erma Crite aurora: <5.7% Consi stent with absen ce of diabe archie 5.7-6 .4% Consi stent with incre ased risk for diabe archie (pred iabet es) >OR=6 .5% Consi stent with diabe archie REFER ENCE: Diabe archie Care 2016, 39(Roberts ppl.1 ):s13 -s22 [address] [facility] (Lab) [address] [place], [address], 04/22/2024 14:37:27 06/10/20 24 06/10/2024 URINA LYSIS COMPL ETE/I RIS W/RFX color YELLOW Not Available [facility] (Lab) [address] [place], [address], 06/10/2024 10:07:24 06/10/20 24 06/10/2024 URINA LYSIS COMPL ETE/I RIS W/RFX appear TURBID abnormal Not Available [facility] (Lab) [address] [place], [address], 06/10/2024 10:07:24 06/10/20 24 06/10/2024 URINA LYSIS COMPL ETE/I RIS W/RFX specific gravity 1.025 1.001- 1.[address] [facility] (Lab) [address] [place], [address], 06/10/2024 10:07:24 06/10/20 24 06/10/2024 URINA LYSIS COMPL ETE/I RIS W/RFX pH 5.0 pH_un its 5.0-9. [address] [facility] (Lab) [address] [place], [address], 06/10/2024 10:07:24 06/10/20 24 06/10/2024 URINA LYSIS COMPL ETE/I RIS W/RFX leukocytes 75 inocencia/u L negati ve- abnormal Not Available [facility] (Lab) [address] [place], [address], 06/10/2024 10:07:24 06/10/20 24 06/10/2024 URINA LYSIS COMPL ETE/I RIS W/RFX nitrite NEGATI VE negati ve- Not Available [facility] (Lab) [address] [place], [address], 06/10/2024 10:07:24 06/10/20 24 06/10/2024 URINA LYSIS COMPL ETE/I RIS W/RFX protein 10 mg/dL negati ve- abnormal Not Available [facility] (Lab) [address] [place], [address], 06/10/2024 10:07:24 06/10/20 24 06/10/2024 URINA LYSIS COMPL ETE/I RIS W/RFX glucose NORMAL mg/dL normal - Not Available [facility] (Lab) [address] [place], [address], 06/10/2024 10:07:24 06/10/20 24 06/10/2024 URINA LYSIS COMPL ETE/I RIS W/RFX ketones NEGATI VE mg/dL negati ve- Not Available [facility] (Lab) [address] [place], [address], 06/10/2024 10:07:24 06/10/20 24 06/10/2024 URINA LYSIS COMPL ETE/I RIS W/RFX urobilinogen NORMAL mg/dL normal - Not Available [facility] (Lab) [address] [place], [address], 06/10/2024 10:07:24 06/10/20 24 06/10/2024 URINA LYSIS COMPL ETE/I RIS W/RFX bilirubin NEGATI VE mg/dL negati ve- Not Available [facility] (Lab) [address] [place], [address], 06/10/2024 10:07:24 06/10/20 24 06/10/2024 URINA LYSIS COMPL ETE/I RIS W/RFX blood 0.03 mg/dL negati ve- abnormal Not Available [facility] (Lab) [address] [place], [address], 06/10/2024 10:07:24 06/10/2006/10/2024 URINA LYSIS COMPL ETE/I RIS W/RFX white blood cells 9-20 /i??h pfi?? 0-[address] [facility] (Lab) [address] [place], [address], 06/10/2024 10:07:24 06/10/20 24 06/10/2024 URINA LYSIS COMPL ETE/I RIS W/RFX red blood cells 0-4 /i??h pfi?? 0-[address] [facility] (Lab) [address] [place], [address], 06/10/2024 10:07:24 06/10/20 24 06/10/2024 URINA LYSIS COMPL ETE/I RIS W/RFX bacteria OCCASI ONAL abnormal Not Available [facility] (Lab) [address] [place], [address], 06/10/2024 10:07:24 06/10/20 24 06/10/2024 URINA LYSIS COMPL ETE/I RIS W/RFX mucous OCCASI ONAL /i??l pfi?? abnormal Not Available [facility] (Lab) [address] [place], [address], 06/10/2024 10:07:24 06/10/20 24 06/10/2024 URINA LYSIS COMPL ETE/I RIS W/RFX squamous epithelial PACKED FIELD /i??l pfi?? abnormal Not Available [facility] (Lab) [address] [place], [address], 06/10/2024 10:07:24 07/15/20 21 07/15/2021 MRI, lumba r spine , w/o contr ast [facility] [address] [place], [place] [address] Patien t Name: SUSANNAHQUEENIE CAMDEN Haskins Access ion #: [id number] Sex: F : 1969 9 Locati [...] neural forami nal Page 1 of 3 [facility] Name: CAMDEN ALMEIDA Access ion #: [id number] Sex: F : 1969 9 Exam [...] 3 [facility] Patien t Name: CAMDEN ALMEIDA Access ion #: [id number] Sex: F : 1969 9 Exam Date: 2020 1:39 PM Exam Name: MRI L SPINE WO Admitt ing Diagno sis(es ): Richard sánchez MD Signed Date: 2020 2:59 PM (CT) Dictat ed by: Richard sánchez MD DD: 2020 2:59 PM (CT) DT: 2020 2:59 PM (CT) Page 3 of [id number] [facility] (Imaging) [address] [place], [address], 11/29/2022 02:51:52 01/21/20 22 01/18/2022 MAMMO , virgiee erma, digit al, bilat eral No observ ation record ed. [id number], [address], 11/29/2022 02:51:52 02/01/20 23 10/27/2022 MAMMO , scree erma, digit al, bilat eral No observ ation record ed. [id number] [address], [address], 06/29/2023 09:24:27 02/07/20 23 02/06/2023 LDCT, chest , for lung fanny ritchie [facility] [address] [place] [address] Britni t Name: CAMDEN ALMEIDA Access ion #: [id number] Sex: F : 1969 9 Locati [...] on techni que. Page 1 of 2 [facility] Britni t Name: CAMDEN ALMEIDA Access ion #: [id number] Sex: F : 1969 9 Exam [...] mm in the right middle lobe. 2. 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 Lung-R ADS 2. Benign . Contin ue annual screen ing with LDCT in 12 months . Create d and electr onical ly signed by: Richard sánchez MD Signed Date: 02/07/20 9:12 PM (CT) Dictat ed by: Richard sánchez MD (CT) (CT) Page 2 of [address] (Imaging) [address] [place], [address], 06/29/2023 09:24:34 01/21/20 24 01/21/2024 MRI, knee, w/o contr ast No observ ation record ed. [email or web address] [facility] [address] [place] [address] [address], [place], [address], 04/15/2024 10:07:26 Result Notes None recorded. Problems Name Problem SNOMED Code Status Onset Date Resolution Date Notes Provider Name and Address Organization Details Recorded Time Postoperat sarah visit 637331254 Active 2018 Not Available [facility] 3 06:52:46 Flank pain 041859354 Completed Not Available [facility] 3 02:45:50 Pure hyperchole sterolemia 975885122 Active 2016 Not Available [facility] 3 06:52:46 Low back pain 739157237 Active 2020 Not Available [facility] 3 06:52:46 Adnexal tenderness 766726210 Completed Not Available [facility] 3 02:45:51 Numbness of lower limb 070309270 Completed Not Available [facility] 3 02:45:51 Bronchitis 42842945 Completed Not Available [facility] 3 02:45:51 Blood in urine 38814262 Completed Not Available [facility] 3 02:45:51 Sinusitis 78329569 Completed Not Available [facility] 3 02:45:51 Hypertensi ve disorder 29837616 Active Not Available [facility] 3 06:52:46 Dysuria 77017737 Completed Not Available [facility] 3 02:45:51 Cough 51189548 Active 2021 Not Available [facility] 3 06:52:46 Essential hypertensi on 90670189 Active 2021 Not Available [facility] 3 06:52:46 Muscle pain 87061936 Active 2021 Not Available [facility] 3 06:52:46 Fatigue 61958258 Active 2021 Not Available [facility] 3 06:52:46 Breast lump 92295500 Active Not Available [facility] 3 06:52:46 Kidney stone 37785294 Active Not Available [facility] 3 06:52:46 Insect bite - wound 385930316 Active 2022 Not Available [facility] 3 06:52:46 Urinary tract infectious disease 00489594 Active 2022 Not Available [facility] 3 06:52:46 Problem Notes None recorded. 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 Not Available [facility] 11/30/19 02:41:01 Orthopedic Surgery completed Not Available [facility] 11/29/2022 02:41:01 Tubal Ligation [facility] 11/29/2022 02:41:01 Tonsillectomy completed [facility] 11/29/2022 02:41:01 Imaging Results Imaging Date Name Status LastModified by Organiz ation Details LastModified Time 01/18/2022 MAMMO, screening, digital, bilateral completed [id number] 026 [facility] [address] [place], [address], 11/29/2022 02:51:52 07/15/2021 MRI, lumbar spine, w/o contrast completed [id number] [facility] (Imaging) [address] [place], [address], 11/29/2022 02:51:52 10/27/2022 MAMMO, screening, digital, bilateral completed [email or web address] [facility] [address] [place], [address], 06/29/2023 09:24:27 02/06/2023 LDCT, chest, for lung cancer screening completed [email or web address] [facility] (Imaging) [address] [place], [address], 06/29/2023 09:24:34 01/21/2024 MRI, knee, w/o contrast completed [email or web address] [address], [place], [address], 04/15/2024 10:07:26 Procedure Notes None recorded. Medical Equipment None Reported. Allergies Allergen ID Allergen Name Allergen Category Reaction Reaction Severity Criticality Documentation Date Start Date Code Code System Note Provider Name and Address Organization Details Recorded Time 3873 Iodine and/or iodine compound (substanc e) Not available Not available Not available Not available 11/29/2022 35473 6004 SNOMED Not Available [facility] 3 02:51:26 3874 Iodinated contrast media (substanc e) medicatio n hives Not available Not available 11/29/2022 53511 2004 SNOMED Not Available [facility] 3 02:51:26 Medications Name Sig Start Date Stop Date Status Note LastModified by Organization Details LastModified Time amoxicillin 500 mg capsule Take 1 capsule 3 times a day by oral route for 7 days. 10/24 completed Not Available Not Available Not Available prednisone 10 mg tablet Take by oral route. take 6p1smbd, 0m8zgns, 7z1gdfh active Not Available Not Available No t [...] propionate 50 mcg/actuati on nasal spray,suspe nsion [place] 2 sprays every day by intranasa l [...] completed Not Available Not Available Not Available [facility] with Large Mask U UTD [...] Details Last Updated DateTime 3 172.72 cm 942330. 65 g 97.8 [degF] 94 /min 98 % 98 % 112 mm[Hg] 80 mm[Hg] Kala Huang RN [place] - S OR [facility] 3 12:22:12 Date Recorded Body mass index (BMI) Body height Heart rate Body temperature Body weight Systolic blood pressure Diastolic blood pressure Provider Name and Address Organization Details Last Updated DateTime 1 39.8 kg/m2 172.72 cm 82 /min 96.6 [degF] 214972. 2 g 122 mm[Hg] 84 mm[Hg] Not Available [facility] 3 02:42:57 Date Recorded Body mass index (BMI) Body height Heart rate Body temperature Body weight Systolic blood pressure Diastolic blood pressure Provider Name and Address Organization Details Last Updated DateTime 2 39.5 kg/m2 172.72 cm 194 /min 98.1 [degF] 029902. 02 g 120 mm[Hg] 72 mm[Hg] Not Available [facility] 3 02:42:57 Date Recorded Body mass index (BMI) Body height Heart rate Body temperature Body weight Systolic blood pressure Diastolic blood pressure Provider Name and Address Organization Details Last Updated DateTime 2 39.8 kg/m2 172.72 cm 76 /min 98.3 [degF] 617348. 2 g 118 mm[Hg] 82 mm[Hg] Not Available [facility] 3 02:42:58 Date Recorded Body height Body mass index (BMI) Body weight Body temperature Heart rate Systolic blood pressure Diastolic blood pressure Provider Name and Address Organization Details Last Updated DateTime 3 172.72 cm 39.8 kg/m2 676108. 2 g 98.2 [degF] 83 /min 122 mm[Hg] 86 mm[Hg] ANURAG Lebron [employer] 3 17:12:54 Social History Question Answer Notes LastModified by Organization Details LastModified Time Tobacco Smoking Status Former Smoker quit 2001 [employer]IO [employer] [employer] 06/28/2023 15:53:37 Do You Have An Advance Directive? Yes [id number] Information not available 11/29/2022 What Is Your Level Of Alcohol Consumption? Occasional [id number] Information not available 11/29/2022 Do You Wear A Helmet When Biking? No Deos Not Bike [email or web address] Information not available 06/28/2023 What Is Your Level Of Caffeine Consumption? Moderate [id number] Information not available 11/29/2022 How Much Tobacco Do You Chew? None MIGRATION.0301 [id number] Information not available 11/29/2022 In The 14 Days Before Symptom Onset, Have You Had Close Contact With A Laboratory-confi rmed COVID-19 While That Case Was Ill? No [email or web address] Information not available 06/28/2023 In The 14 Days Before Symptom Onset, Have You Had Close Contact With A Person Who Is Under Investigation For COVID-19 While That Person Was Ill? No Information not available 06/28/2023 What Type Of Diet Are You Following? REGULAR MIGRATION.0301 [id number] Information not available 11/29/2022 Which Illicit Or Recreational Drugs Have You Used? None [email or web address] Information not available 06/28/2023 Do You Or Have You Ever Used E-cigarettes Or Vape? Never Used Electronic Cigarettes [email or web address] Information not available 06/28/2023 What Is The Highest Grade Or Level Of School You Have Completed Or The Highest Degree You Have Received? 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 No [email or web address] Information not available 06/28/2023 What Is The Fluoride Status Of Your Home? Unknown Information not available 06/28/2023 When Did You Quit Smoking? 16+yearssincelastci chaya [email or web address] Information not available 06/28/2023 Are There Any Guns Present In Your Home? Yes [email or web address] Information not available 06/28/2023 Do You Use Insect Repellent Routinely? No [email or web address] Information not available 06/28/2023 Where Do You Live? SingleLevelHouse [email or web address] Information not available 06/28/2023 Do You Have A Medical Power Of Night Custodian? Yes [email or web address] Information not available 06/28/2023 What Was The Date Of Your Most Recent Tobacco Screening? 06/28/2023 [email or web address] Information not available 06/28/2023 Have You Ever Been Counseled For Unhealthy Alcohol Use? No [email or web address] Information not available 06/28/2023 Do You Have Any Pets? Yes Information not available 06/28/2023 What Is Your Relationship Status? MIGRATION.030 [id number] Information not available 11/29/2022 Do You Use Your Seat Belt Or Car Seat Routinely? Yes [email or web address] Information not available 06/28/2023 Do You Have Smoke And Carbon Monoxide Detectors In Your Home? Yes [email or web address] Information not available 06/28/2023 At What Age Did You Start Smoking Tobacco? 13 [email or web address] Information not available 06/28/2023 Are You Passively Exposed To Smoke? No [email or web address] Information not available 06/28/2023 Do You Or Have You Ever Used Smokeless Tobacco? Never Used Smokeless Tobacco MIGRATION.030 814950 Information not available 11/29/2022 Are There Any Smokers In Your House? No [email or web address] Information not available 06/28/2023 How Much Tobacco Do You Smoke? No Was 1ppd MIGRATION.030 095972 Information not available 11/29/2022 What Types Of Sporting Activities Do You Participate In? None [email or web address] Information not available 06/28/2023 Do You Feel Stressed (tense, Restless, Nervous, Or Anxious, Or Unable To Sleep At Night)? IM5206-6 [email or web address] Information not available 06/28/2023 Do You Use Any Illicit Or Recreational Drugs? No [email or web address] Information not available 06/28/2023 Do You Use Sunscreen Routinely? Yes [email or web address] Information not available 06/28/2023 Have You Recently Traveled Abroad? No [email or web address] Information not available 06/28/2023 Do You Have Any Dietary Restrictions? No [email or web address] Information not available 06/28/2023 Do You Or Have You Ever Used Any Other Forms Of Tobacco Or Nicotine? No Information not available 06/28/2023 Sex: Female Functional Status Question Answer Note LastModified by Organizat ion Details LastModified Time What is your exercise level? None [id number] Information not available 11/29/2022 Mental Status None recorded. Family History Relationship Description Onset Age of this Age Resolved Age Notes LastModified by Organization Details LastModified Time Father Heart disease MIGRATION.746 [id number] Not available 11/29/2022 02:41:04 Father Malignant neoplastic disease [email or web address] Not available 06/02 15:53:34 Mother General health good [email or web address] Not available 15:53:34 Sister Alcohol abuse [email or web address] Not available 06/02 15:53:34 Sister Cerebrovascu lar accident 47 [email or web address] Not available 0 06/28/2023 15:53:34 Unspecified Relation Family history of diabetes mellitus [email or web address] Not available 06/02 15:53:34 Unspecified Relation Family history of ischemic heart disease [email or web address] Not available 06/02 15:53:34 Unspecified Relation Family history of Hypertension [email or web address] Not available 0 06/28/2023 15:53:34 Notes:no new Medical History Condition Response NERVE DISEASE N BLINDNESS N RHEUMATIC FEVER N KIDNEY STONES Y BLADDER PROBLEMS N MRSA N OTHER # 1 N POLIO N LUNG DISEASE/DISORDER N COPD N RADIATION / CHEMOTHERAPY N Other # 2 N BLOOD DISEASES N EAR OR HEARING PROBLEMS N MUMPS N BOWEL PROBLEMS N DEPRESSION (INCLUDING POST ) N STROKE/TIA N ULCERS N BENIGN PROSTATIC HYPERPLASIA N MEASLES N MYOCARDIAL INFARCTION N OBESITY N GERD/NAUSEA N ANEURYSM N URINARY/BLADDER/KIDNEY PROBLEMS N CORONARY ARTERY DISEASE (CAD) N ADDICTION CONCERNS N ENDOMETRIOSIS N Impotence N USE OF BLOOD THINNERS N SKIN [...] APNEA N CHICKENPOX N INFECTIOUS DISEASE N HEART ARRHYTHMIA N PROSTATE N INSOMNIA N HIGH CHOLESTEROL / HYPERLIPIDEMIA Y HYPERTHYROIDISM N EYE PROBLEMS N EDEMA N CHRONIC PAIN SYNDROME N HYPOTHYROIDISM N CAROTID BLOCKAGE N CONSTIPATION N BACK / NECK PROBLEMS N HAVE YOU BEEN HOSPITALIZED OR SEEN IN [facility] IN THE PAST YEAR ? N ATHEROSCLEROSIS N BREAST PROBLEMS N DIALYSIS N ECZEMA N OSTEOPOROSIS N ARTHRITIS N APPENDICITIS N DIABETES, TYPE N BAD TEETH N ENT N HEARTBURN / REFLUX N AUTISM SPECTRUM DISORDER (ASD) N HEPATITIS / LIVER DISEASE N GOUT N SLEEP DISORDER N ALZHEIMER'S DISEASE N Brain Problems N HERPES N DEMENTIA N HEADACHES/MIGRAINES N SEIZURES/EPILEPSY N VASCULAR DISEASE N PACEMAKER N Blood Disorder N DIZZINESS N HEART DISEASE/HEART PROBLEMS N KIDNEY DISEASE N MULTIPLE SCLEROSIS N CARDIAC ARRHYTHMIA N CANCER: SPECIFY N ATRIAL FIBRILLATION N Gall Stones N [...] 50 mcg/0.25mL dose 1 completed Not Available [facility] 06/29/2023 06:52:46 influenza, unspecified formulation 8 completed Not Available [facility] 06/29/2023 06:52:46 Influenza, split virus, trivalent, preservative 1 completed Not Available [facility] 06/29/2023 06:52:46 Influenza, split virus, quadrivalent, PF 7 completed Not Available [facility] 06/29/2023 06:52:46 Influenza, split virus, quadrivalent, PF 2 completed Not Available [facility] 06/29/2023 06:52:46 Past Encounters Encounter ID Performer Location Encounter Start Date Encounter Closed Date Diagnosis/Indication Diagnosis SNOMED-CT Code Diagnosis ICD10 Code Diagnosis Note [id number] _MIGUEL_M IGRATION_ DEFAULT_1 _1 , 12/20/2020 00:00:00 12/20/2020 17:17:10 [id number] S_[facility] Internal Med [facility] [address] [address] 01/28/2021 00:00:00 01/29/2021 11:56:39 [id number] S_G Internal Med Iker morales [address] , [facility] [place] [address] 05/17/2021 00:00:00 06/06/2021 14:12:54 [id number] [facility] Internal Med [facility] [address] [place], [place] [address]e., [facility] [address] [place] [address] 08/05/2021 00:00:00 08/05/2021 10:40:22 [id number] [facility] Internal Med [facility] [address] [place], [place] [address] [address] [address] 02/03/2022 00:00:00 02/03/2022 23:09:15 [id number] [facility] Internal Med [facility] [address] [place], [place] [address]., [address] [address] 08/04/2022 00:00:00 08/27/2022 17:56:35 [id number] Yamilex Osborne MD S_[facility] Internal Med [facility] [address] [place] [address]., [address] [address] 01/15/2023 12:15:56 01/15/2023 12:33:17 Insect bite - wound 065239873 T14.8XXA [id number] Yamilex Osborne MD [facility] Internal Med [facility] [address] [place] [address]., [address] [address] 06/28/2023 15:52:14 07/09/2023 09:14:08 Essential hypertension 68683514 I10 Urinary tr act infectious disease 76722794 N39.0 Pure hypercholesterolemia 114893706 E78.00 Health Concerns Section Related Observation LastModified by Organization Detai ls LastModified Time None Recorded Concern Status LastModified by Organization Details LastModified Time None Recorded Advance Directives Directive Y: Payers Encounter Date Sequence Insurance Name Policy Number Policy Randle Covered Member ID Randle Member ID Guarantor Name 01/15/2023 1 [place] [id number] Camden Gudino [id number] Mylisa A Terese 01/15/2023 2 [place] [id number] Richard Gudino [id number] Camden Gudino 06/28/2023 1 [place] [id number] Camden Gudino [id number] Camden Gudino 06/28/2023 2 [facility]: (PPO) [id number] Richard Corral Terese [id number] Camden Gudino Notes Date Note Type Note Provider Name and Address Organization Details Recorded Time 01/15/2023 text/html Small area on he r leg it itches she is worried about a brown recluse bite Yamilex Osborne MD [address], [place], [address], [facility] Boracci 03/11/2023 21:33:55 06/28/2023 text/html Hypertension no headache no dizziness blood pressure 122/86Dyslipidemia no problems with the medication Try to follow low-fat diet hard time losing weightDysuria 2 days sometimes some back pain no nausea vomiting fever chills Yamilex Osborne MD [address], [place], [address], [employer] 07/08/2023 17:16:43 OBGyn Episode No OBEpisode recorded.
--- OUTSIDE RECORDS SUMMARY | 2024-12-12 07:38 | XMS_ITS | Clinical Summary ---
Author Organization [facility] 2 Address [address] [facility] [place] [address] Care Team Providers Care Food And Beverage Associate Name Role Phone Ladarius Osborne MD Primary Care Provider [phone] Solo Pritchett MD Unavailable [phone] Allergies Active Allergy Reactions Criticality Noted Date [...] 09/02 Surgical History Surgery Date Site/Laterality Comments LA LIG/TRNSXJ FLP TUBE ABDL/ VAG APPR UNI/BI Tubal Ligation - (Added by TW Conv) LA TONSILLECTOMY PRIMARY/SEC ONDARY <AGE 13 Tonsillectomy - [...] on file Legal Sex Female 7:28 PM MACHINE APPLICATOR CEMENTER Gender Identity Not on file Sexual Orientation Not on file Obstetrics History Last Filed Vital Signs Vital Sign Reading Time Taken Comments Blood Pressure 150/94 11/10/2023 12:35 AM MACHINE APPLICATOR CEMENTER Pulse 79 11/10/2023 1:10 AM MACHINE APPLICATOR CEMENTER Temperature 36.6 C (97.8 F) 11/09/2023 6:10 PM MACHINE APPLICATOR CEMENTER Respiratory Rate 20 11/09/2023 6:10 PM MACHINE APPLICATOR CEMENTER Oxygen Saturation 98% 11/10/2023 1:10 AM MACHINE APPLICATOR CEMENTER Inhaled Oxygen Concentration - - Weight 117.9 kg (260 lb) 11/09/2023 6:10 PM MACHINE APPLICATOR CEMENTER Height 175.3 cm (5' 9 ) 11/09/2023 6:10 PM MACHINE APPLICATOR CEMENTER Body Mass Index 38.4 11/09/2023 6:10 PM MACHINE APPLICATOR CEMENTER Plan of Treatment Health Maintenance Due Date Last Done Comments Cervical Cancer Screening 1971 Depression Screening 1971 Hepatitis C Screening 1971 Hepatitis B Screening 1989 Regular Well Visit/Exam 18-64 1989 Zoster Vaccine (1 of 2) 2021 Breast Cancer Screening-Mammogram 10/27/2023 10/27/2022, 01/18/2022, 12/24/2020, Additional history exists Influenza Vaccine (#1) 2024 , 07/03/2021, 08/01/2018, Additional history exists DTaP/Tdap/Td Vaccine (2 - Td or Tdap) 07/12/2027 07/12/2017 Colon Cancer Screening-Colonoscopy 05/03/2031 05/03/2021 Pneumococcal vaccine <65 Aged Out No longer eligible based on patient's age to complete this topic Procedures Procedure Name Priority Date/Time Associated Diagnosis Comments DIAGNOSTIC MAMMOGRAM BILATERAL W ALEN Schedule Routine, Read Routine (OP Routine) 10/27/2022 3:09 PM MACHINE APPLICATOR CEMENTER Mass of left breast, unspecified quadrant COLONOSCOPY 05/03/2021 7:12 AM CDT from Last 3 Months or Most Recently Relevant to Health Maintenance Results * Diagnostic Mammogram Bilateral W Alen (10/27/2022 3:09 PM MACHINE APPLICATOR CEMENTER) Anatomical Region Laterality Modality Breast Bilateral Mammography 10/27/2022 3:48 PM MACHINE APPLICATOR CEMENTER Impressions 10/27/2022 3:48 PM MACHINE APPLICATOR CEMENTER 1. No evidence of malignancy in either [...] Martine Cruz M.D. Narrative 10/27/2022 3:48 PM MACHINE APPLICATOR CEMENTER EXAMINATION: BILATERAL DIGITAL DIAGNOSTIC MAMMOGRAM INCLUDING CAD [...] Cruz MD - 05/03/2021 7:12 AM CDT [facility] Patient Name: Jerilyn Gudino Procedure Date: 05/03/2021 7:12 AM Date of : 1970 Admit Type: Outpatient Age: 51 Gender: Female Attending MD: Ladarius Cruz M.D. Room: [facility] ENDOSCOPY ROOM 02 Note Status: Finalized [...] The scope was passed under direct vision.The [id number] Colonoscope was introducedthrough the anus and advanced to the the terminal ileum.The colonoscopy was performed without difficulty. The patient tolerated the procedure well. The qualityof the bowel preparation was evaluated using the BBPS ([place] Bowel Preparation Scale) with scores of:Right Colon [...] business hours - Please call theNurse Coordinator: [phone] After hours, evening, nights, weekends and holidays- Please call the hospital hot box operator at and ask for the GI fellow detention sergeant. Attending Participation: I personally performed the entire procedure. Electronically signed by Ladarius Cruz MD Ladarius Cruz M.D. 05/03/2021 2:18:45 PM . Number of Addenda: 0 Note Initiated On: 05/03/2021 7:12 AM Recognized by the [place] [employer] for promoting quality in endoscopy Ladarius Cruz MD ENDOSCOPY PROCEDURES Final Result from Last 3 Months or Most Recently Relevant to Health Maintenance Insurance [employer] [place] BLUE ACCESS OOS [facility] ACCESS BLUE [employer] [place] BLUE ACCESS OOS [facility] ACCESS OOS BLUE [employer] Care Teams Food And Beverage Associate Relationship Specialty Start Date End Date Ladarius Osborne MD PCP - General 05/17/17 Solo Pritchett MD [address] [place] [address] Referring Physician Obstetrics and Gynecology 11/25/19
--- OUTSIDE RECORDS SUMMARY | 2024-12-12 07:38 | XMS_ITS | Clinical Summary ---
Author Organization [facility] Address [address] [facility] [place] [address] Care Team Providers Care Polyethylene Bag Machine Operator Name Role Phone Ladarius Osborne MD Primary Care Provider [phone] Source Comments [facility],non-owned Affiliates and Associated Physician Practices is amultiple site organization consisting of ambulatory clinics and hospital sitesin [place], [place], [place] and [place]. This disclosure is being madepursuant to the Care Everywhere program and may not contain all information available regarding this patient. Last updated 18.[facility] Allergies Active Allergy Reactions Criticality Noted Date [...] to complete this topic MENINGOCOCCAL (Group B) VACC INE SHARED DECISION-MAKING Aged Out No longer eligibl e based on patient's age to complete this topic MENINGOCOCCAL GROUPS A/C/Y/W VACCINE Aged Out No longer eligible b ased on patient's age to complete this topic PNEUMOCOCCAL VACCINE Aged Out No long er eligible based on patient's age to complete this topic Care Teams Polyethylene Bag Machine Operator Relationship Specialty Start Date End Date Ladarius Osborne MD PCP - General Internal Medicine 07/12/17
--- OUTSIDE RECORDS SUMMARY | 2024-12-12 07:38 | XMS_ITS | Clinical Summary ---
Author Organization [facility] Address [address] [place] [address] Phone Care Team Providers Care Pharmacist Apprentice Name Role Phone Unavailable Primary Care Provider [...] Comments Blood Pressure 143/92 08/30/2021 10:00 AM TELECOM FIELD TECHNICIAN Pulse 90 08/30/2021 10:00 AM TELECOM FIELD TECHNICIAN Temperature 36.7 C (98.1 F) 08/30/2021 10:00 AM TELECOM FIELD TECHNICIAN Respiratory Rate - - Oxygen Saturation - - Inhaled Oxygen Concentration - - Weight 117 kg (258 lb) 08/30/2021 10:00 AM TELECOM FIELD TECHNICIAN Height 175 cm (5' 8.9 ) 08/30/2021 10:00 AM TELECOM FIELD TECHNICIAN Body Mass Index 38.21 08/30/2021 10:00 AM TELECOM FIELD TECHNICIAN Plan of Treatment Health Maintenance Due Date [...] 05/03/2021 Colorectal Cancer Screening 05/03/2031 PNEUMOCOCCAL VACCINE 0-49 YEARS Aged Out No longer eligible based on patient's age to complete this topic Insurance BCBS BLUE ACCESS/TRUE BLUE PPO [facility] TRADITIONAL Member Subscriber Plan / Payer ( fective 2019-Present) Name:Jerilyn Gudino Relation to Subscriber:Spouse Name:Richard Gudino Date of :1967 (Home) Address: [address] [place] [address] Payer ID:[id number] (NAIC) Type:[facility]
--- OUTSIDE RECORDS SUMMARY | 2024-12-12 07:38 | XMS_ITS | CONTINUITY OF CARE DOCUMENT ---
Author Name samantha singh Address Unknown Organization [facility] Address [address] [place] [address] Phone [phone] Care Team Providers Care Branch Operations Manager Name Role Phone YAMILEX LEAL MD Unavailable YAMILEX LEAL MD Unavailable [phone] INSURANCE PROVIDERS Payer name Policy type / Coverage type Jarocho red republican ID [id number] [employer] PPO Other [id number]
--- OUTSIDE RECORDS SUMMARY | 2024-12-12 07:38 | XMS_ITS | Patient Health Record ---
Author Organization [facility] Address [address], [place] [address] Care Team Providers Care Pulling Unit Operator Name Role Phone Vinnie Luis DPM Primary Care Provider [phone] ALLERGIES Allergen (clinical drug ingredient) Drug/Non Drug [...] of left foot (M25.572) 3 Active confirmed [id number] Problem Effusion, left ankle (M25.472) 3 Active confirmed [id number] Problem Plantar fascial fibromatosis (M72.2) 3 Active confirmed [id number] PLAN OF TREATMENT No Information Insurance Providers Payer Name Payer Address Payer Phone Subscriber Number Group Number Insured Name Patient Relationship to Insured Coverage Start Date Coverage End Date Blue Cross Blue Shield [address] [place] [address] [phone] [id number] Jerilyn Gduino Self - patient is the insured [facility] [address] [place] [address] [id number] Richard Gudino Spouse - patient is the spouse of the insured MEDICAL (GENERAL) HISTORY Medical History History ICD Code high blood pressure high cholesterol Surgical History Surgery Date(Month/Year) tubal ligation 2007 & 1996 left tendon repair - AJR 2018
--- OUTSIDE RECORDS SUMMARY | 2024-12-12 07:38 | XMS_ITS | Referral Summary ---
Author Organization [facility] Address [address] [place] [address] Care Team Providers Care Photographer'S Assistant Name Role Phone Ladarius Osborne MD Primary Care Provider [phone] Source Comments [facility],non-owned Affiliates and Associated Physician Practices is amultiple site organization consisting of ambulatory clinics and hospital sitesin [place], [place], [place] and [place]. This disclosure is being madepursuant to the Care Everywhere program and may not contain all information available regarding this patient. Last updated 18.[facility] [employer] Allergies Active Allergy Reactions Criticality Noted Date [...] of Treatment Not on file Care Teams Photographer'S Assistant Relationship Specialty Start Date End Date Ladarius Osborne MD PCP - General Internal Medicine 07/12/17
== END 2024-12-12 07:26 | disposition home or self-care (01) ==
LOC: ANHIMG 07:26
PROVIDERS: PCP Internal Medicine; Visit Provider Internal Medicine
DX: Z13.820 Encounter for screening for osteoporosis (principal); Z78.0 Asymptomatic menopausal state
CPT/HCPCS: 77080

== ENCOUNTER 2025-01-19 07:20 | Outpatient (CLI) | payer BC, SELFPAY ==
[2025-01-20 07:53] LABS: DHEA-Sulfate 80 mcg/dL (5-167)
[2025-01-23 10:44] LABS: Testosterone Free 11.6 pg/mL (0.1-6.4); Testosterone Total 69 ng/dL (2-45)
== END 2025-01-19 07:21 | disposition home or self-care (01) ==
LOC: ANHLAB 07:23
PROVIDERS: PCP Internal Medicine; Visit Provider Obstetrics & Gynecology
DX: L68.0 Hirsutism (principal)
CPT/HCPCS: 36415; 82627; 83498; 84402; 84403

== ENCOUNTER 2025-05-21 08:28 | Outpatient (CLI) | payer BC, SELFPAY ==
--- OUTSIDE RECORDS SUMMARY | 2009-07-05 19:00 | XMS_ITS | Continuity of Care Document ---
Author Organization [facility] [place] [address] [place] [address] [address] [place] [address] Phone Care Team Providers Care Salvage Inspector Name Role Phone [facility] Unavailable Unavail able Procedures Procedure Date SV Hi Index Sphcyl [place] +/-4d, .12-2d O ct Frames Deluxe Anti-reflective Coating Tax - Medical Eye Exam & Treatment Refraction Advance Directives Directive Yes / No Effective Date File Name No Information Encounters Encounter Description Practice Location Reason(s) For Visit Diagnoses Date Provider Providers Copied on Encounter [facility], [address] [place] [address] [address], [place], [place], [id number], [place] tel:[phone] SEC [facility] No Information Oct-0 6-200 9 [facility] . [address] [facility], [facility] [address], [place], [id number], [place]. tel:[phone] Referring Provider: Wojciech Miller OD Jimmy [facility] [address], [place], [address]. tel:[phone] [facility], [address] [place] [address] [address], [place], [place], [id number], [place] tel:[phone] [facility] No Information Oct-0 3-200 9 Miller OD Wojciech. [address] [facility] , [address], [place], [address], [place]. tel:[phone] Family History Family Member Type Diagnosis Age At Onset No Information Payers Payer name Insurance type Covered alliance party ID Authoriza tion(s) No Information Social History [...]
--- NOTE | ~2025-05-21 | XR_ITS ---
EXAM/PROCEDURE: XR chest 2V - 05/21/2025 8:50 CDT HISTORY: 55 years old Female with PERSISTENT COUGH TECHNIQUE: Two view(s) of the chest. COMPARISON: None available. FINDINGS: LUNGS/ PLEURA: No focal consolidation. No appreciable pneumothorax or large pleural effusion. HEART/ MEDIASTINUM: Heart appears normal in size. BONES: No acute osseous abnormality. OTHER: Visualized upper abdomen is unremarkable. IMPRESSION: No acute process. Reviewed, dictated and finalized at location A. IMPRESSION: No acute process.
--- OUTSIDE RECORDS SUMMARY | 2025-05-21 08:46 | XMS_ITS | Clinical Summary ---
Author Organization [facility] Address [address] [place] [address] Phone Care Team Providers Care Ic Design Engineer Name Role Phone Unavailable Primary Care Provider [...] Tobacco Use Cancer Maternal Aunt Stomach Cancer Hemophilia Maternal Aunt Blood Clots High Cholesterol Maternal Aunt Hypertension Maternal Aunt [...] Comments Blood Pressure 143/92 08/30/2021 10:00 AM CLIENT LEADER Pulse 90 08/30/2021 10:00 AM CLIENT LEADER Temperature 36.7 C (98.1 F) 08/30/2021 10:00 AM CLIENT LEADER Respiratory Rate - - Oxygen Saturation - - Inhaled Oxygen Concentration - - Weight 117 kg (258 lb) 08/30/2021 10:00 AM CLIENT LEADER Height 175 cm (5' 8.9) 08/30/2021 10:00 AM CLIENT LEADER Body Mass Index 38.21 08/30/2021 10:00 AM CLIENT LEADER Plan of Treatment Health Maintenance Due Date Last Done Comments HEPATITIS B VACCINES (1 of 3 - 19+ 3-dose series) 03/01 HPV/Cotest (21-29) 1992 CERVICAL CANCER SCREENING 2001 HPV/Cotest (30-65) 2001 PAP SMEAR 2001 BREAST CANCER SCREENING 2011 FIT-DNA Q 3 years 2016 FIT/FOBT Q 1 year 2016 Flex Sig/CT Colonography Q 5 years 2016 ZOSTER VACCINE (1 of 2) 2021 INFLUENZA VACCINE (#1) 2025 08/15/2017 DTAP/TDAP/TD VACCINES (2 - Td or Tdap) 07/12/2027 COLORECTAL SCREENING 05/03/2031 05/03/2021 Colorectal Cancer Screening 05/03/2031 Insurance BCBS BLUE ACCESS/TRUE BLUE PPO [facility] TRADITIONAL
--- OUTSIDE RECORDS SUMMARY | 2025-05-21 08:46 | XMS_ITS | Patient Health Record ---
Author Organization [facility] Orthopedi [facility] Address [address], [place] [address] Care Team Providers Care Gas Roller Operator Name Role Phone Vinnie Luis DPM Primary Care Provider [phone] ALLERGIES Allergen (clinical drug ingredient) Drug/Non Drug [...] of left foot (M25.572) 3 Active confirmed [id number] Problem Effusion, left ankle (M25.472) 3 Active confirmed [id number] Problem Plantar fascial fibromatosis (M72.2) 3 Active confirmed [id number] PLAN OF TREATMENT No Information Insurance Providers Payer Name Payer Address Payer Phone Subscriber Number Group Number Insured Name Patient Relationship to Insured Coverage Start Date Coverage End Date Blue Cross Blue Shield [address] [place] [address] [id number] Jerilyn Gudino Self - patient is the insured [facility] [address] [place] [address] [id number] Richard Gudino Spouse - patient is the spouse of the insured MEDICAL (GENERAL) HISTORY Medical History History ICD Code high blood pressure high cholesterol Surgical History Surgery Date(Month/Year) tubal ligation 2007 & 1996 left tendon repair - AJR 2018
--- OUTSIDE RECORDS SUMMARY | 2025-05-21 08:46 | XMS_ITS | Clinical Summary ---
Author Organization [facility] Address [address] [place] [address] Care Team Providers Care Sfdc Solution Architect Name Role Phone Ladarius Osborne MD Primary Care Provider [phone] Solo Pritchett MD Unavailable [phone] Allergies Active Allergy Reactions Criticality Noted Date [...] 09/02 Surgical History Surgery Date Site/Laterality Comments [place] LIG/TRNSXJ FLP TUBE ABDL/ VAG APPR UNI/BI Tubal Ligation - (Added by TW Conv) [place] TONSILLECTOMY PRIMARY/SEC ONDARY <AGE 12 Tonsillectomy - [...] on file Legal Sex Female 7:28 PM AFTERNOON NANNY Gender Identity Not on file Sexual Orientation Not on file Obstetrics History Last Filed Vital Signs Vital Sign Reading Time Taken Comments Blood Pressure 150/94 11/10/2023 12:35 AM AFTERNOON NANNY Pulse 79 11/10/2023 1:10 AM AFTERNOON NANNY Temperature 36.6 C (97.8 F) 11/09/2023 6:10 PM AFTERNOON NANNY Respiratory Rate 20 11/09/2023 6:10 PM AFTERNOON NANNY Oxygen Saturation 98% 11/10/2023 1:10 AM AFTERNOON NANNY Inhaled Oxygen Concentration - - Weight 117.9 kg (260 lb) 11/09/2023 6:10 PM AFTERNOON NANNY Height 175.3 cm (5' 9) 11/09/2023 6:10 PM AFTERNOON NANNY Body Mass Index 38.4 11/09/2023 6:10 PM AFTERNOON NANNY Plan of Treatment Health Maintenance Due Date Last Done Comments Cervical Cancer Screening 1971 Depression Screening 1971 Hepatitis C Screening 1971 Hepatitis B Screening 1989 Regular Well Visit/Exam 18-64 1989 Zoster Vaccine (1 of 2) 2021 Influenza Vaccine (#1) 2025 2, 07/03/2021, 08/01/2018, Additional history exists Breast Cancer Screening-Mammogram 12/18/2025 12/18/2024, 10/27/2022, 01/18/2022, Additional history exists DTaP/Tdap/Td Vaccine (2 - Td or Tdap) 07/12/2027 07/12/2017 Colon Cancer Screening-Colonoscopy 05/03/2031 05/03/2021 Pneumococcal vaccine <65 Aged Out No longer eligible based on patient's age to complete this topic Procedures Procedure Name Priority Date/Time Associated Diagnosis Comments SCREENING MAMMOGRAM BILATERAL W TAVON Schedule Routine, Read Routine (OP Routine) 12/18/2024 3:18 PM CDT Screening mammogram, encounter for COLONOSCOPY 05/03/2021 7:12 AM CDT from Last 3 Months or Most Recently Relevant to Health Maintenance Results * Screening Mammogram Bilateral W Tavon (12/18/2024 3:18 PM CDT) Anatomical Region Laterality Modality Breast Bilateral Mammography Narrative 12/18/2024 4:10 PM CDT Mammogram Technique: Bilateral Digital Breast Tomosynthesis, Bilateral C-view 2D Screening mammogram. Views obtained: bilateral craniocaudal and bilateral mediolateral oblique. Computer Aided Detection was performed. Mammogram Findings: The present examination has been compared to prior imaging studies performed at [facility] on 12/24/2020, 01/18/2022 and 10/27/2022. There are scattered areas of fibroglandular density. There is no suspicious abnormality in either breast. Impression: There is no mammographic evidence of malignancy. Annual screening mammography is recommended. OVERALL FINAL ASSESSMENT: BI-RADS CATEGORY 1: Negative. Procedure Note Laura Arroyo MD - 12/18/2024 Mammogram Technique: Bilateral Digital Breast Tomosynthesis, Bilateral C-view 2D Screening mammogram. Views obtained: bilateral craniocaudal and bilateral mediolateral oblique. Computer Aided Detection was performed. Mammogram Findings: The present examination has been compared to prior imaging studies performed at [facility] on 12/24/2020, 01/18/2022 and 10/27/2022. There are scattered areas of fibroglandular density. There is no suspicious abnormality in either breast. Impression: There is no mammographic evidence of malignancy. Annual screening mammography is recommended. OVERALL FINAL ASSESSMENT: BI-RADS CATEGORY 1: Negative. us Self Screening Mammogram IMG MAMMO PROCEDURES Fi nal Result * COLONOSCOPY (05/03/2021 7:12 AM CDT) Anatomical Region Laterality Modality Other Narrative Procedure Note Ladarius Cruz MD - 05/03/2021 7:12 AM CDT [facility] Patient Name: Jerilyn Gudino Procedure Date: 05/03/2021 7:12 AM Date of : 1970 Admit Type: Outpatient Age: 51 Gender: Female Attending MD: Ladarius Cruz M.D. Room: [facility] ROOM 02 Note Status: Finalized Procedure: [...] The scope was passed under direct vision.The [id number] Colonoscope was introducedthrough the anus and advanced to the the terminal ileum.The colonoscopy was performed without difficulty. The patient tolerated the procedure well. The qualityof the bowel preparation was evaluated using the BBPS ([place] Bowel Preparation Scale) with scores of:Right Colon [...] During normal business hours - [facility] Coordinator: [phone] After hours, evening, nights, weekends and holidays- Please call the hospital die operator at and ask for the GI [place] constable. Attending Participation: I personally performed the entire procedure. Electronically signed by Ladarius Cruz MD Ladarius Cruz M.D. 05/03/2021 2:18:45 PM . Number of Addenda: 0 Note Initiated On: 05/03/2021 7:12 AM Recognized by the [place] [employer] for promoting quality in endoscopy Ladarius Cruz MD ENDOSCOPY PROCEDURES Final Result from Last 3 Months or Most Recently Relevant to Health Maintenance Insurance [facility] BLUE [employer] OOS [facility] ACCESS BLUE [employer] [place] BLUE ACCESS OOS [employer] [place] BLUE [employer] [place] Care Teams Sfdc Solution Architect Relationship Specialty Start Date End Date Ladarius Osborne MD PCP - General 05/17/17 Solo Pritchett MD [address] [facility] [address] [place] [address] Referring Physician Obstetrics and Gynecology 11/25/19
--- OUTSIDE RECORDS SUMMARY | 2025-05-21 08:46 | XMS_ITS | Clinical Summary ---
Author Organization [facility] Address [address] [place] [address] Care Team Providers Care Fire Lookout Name Role Phone Ladarius Osborne MD Primary Care Provider [phone] Source Comments [facility],non-owned Affiliates and Associated Physician Practices is amultiple site organization consisting of ambulatory clinics and hospital sitesin [place], [place], [place] and [place]. This disclosure is being madepursuant to the Care Everywhere program and may not contain all information available regarding this patient. Last updated 18.[facility] [employer] Allergies Active Allergy Reactions Criticality Noted Date Comments Contrast-Iodinated Agents For Ct/Other 07/12/2017 Immunizations Immunization Administration Dates Next Due TDAP (7yrs+) 07/12/2017 Social History Tobacco Use Types Packs/Day Years Used Date Smoking Tobacco: Never Assessed Comments Unknown Sex and Gender Information Value Date Recorded Sex Assigned at Not on file Legal Sex Female 5:18 PM CDT Gender Identity Not on file [...] SCREENING 1970 LIPID TESTING 1970 MAMMOGRAM 1971 HIV SCREENING 1986 HEPATITIS C SCREENING 03/10/1989 HEPATITIS B VACCINE (1 of 3 - 19+ 3-dose series) 1990 PNEUMOCOCCAL VACCINE 50+ (1 of 1 - PCV) 2021 ZOSTER VACCINE (1 of 2) 2021 COVID-19 VACCINE (1 - 2023-2 5 season) 2024 DEPRESSION SCREENING 10/01/2024 INFLUENZA VACCINE (#1) 2025 DTAP/TDAP/TD VACCINES (2 - T d or [...] patient's age to complete this topic Insurance ANTHEM Care Teams Fire Lookout Relationship Specialty Start Date End Date Ladarius Osborne MD PCP - General Internal Medicine 07/12/17
== END 2025-05-21 08:29 | disposition home or self-care (01) ==
LOC: ANHIMG 08:34
PROVIDERS: PCP Internal Medicine; Visit Provider Internal Medicine
DX: R07.89 Other chest pain (principal); R05.3 Chronic cough
CPT/HCPCS: 71046

== ENCOUNTER 2025-08-04 14:34 | Outpatient (CLI) | payer BC, SELFPAY ==
--- OUTSIDE RECORDS SUMMARY | 2009-07-05 18:00 | XMS_ITS | Continuity of Care Document ---
Author Organization [facility] Address [address] [place] [address] [address] [place] [address] Phone Care Team Providers Care High School Music Teacher Name Role Phone [facility] Unavailable Unavail able Procedures Procedure Date SV Hi Index Sphcyl Sum[place] +/-4d, .12-2d O ct Frames Deluxe Anti-reflective Coating Tax - Medical Eye Exam & Treatment Refraction Advance Directives Directive Yes / No Effective Date File Name No Information Encounters Encounter Description Practice Location Reason(s) For Visit Diagnoses Date Provider Providers Copied on Encounter [facility], [address] [place] [address] [address], [place], [place], [id number], [place] tel:[phone] SEC [facility] No Information Oct-0 6-200 9 [facility] . [address] [facility], [facility] [address], [place], [id number], [place]. tel:[phone] Referring Provider: Wojciech Miller OD [facility] [address], [place], [address]. tel:[phone] [facility], [address] [place] [address] [address], [place], [place], [id number], [place] tel:[phone] [facility] No Information Oct-0 3-200 9 Miller OD Wojciech. [address] , [address], [place], [address], [place]. tel:[phone] Family History Family Member Type Diagnosis Age At Onset No Information Payers Payer name Insurance type Covered libertarian ID Authoriza tion(s) No Information Social History Type Description Quantity Date Captured Comments Sex Female Smoking Status No Information Chief Complaint And Reason For Visit No Information Reason For Referral Reason For Referral No Information History Of Present Illness Encounter Date Complaint History Of Prese nt Illness No Information Functional Status Date Functional Assessmen t No Information Instructions Date Instruction Additional Infor mation No Information Assessments Type Assessment Date No Information Patient Care Teams Name Effective Dates (start - stop) Status Members No Information
--- NOTE | 2025-08-04 | ECHO_ITS ---
Patient Info Name: Jerilyn Gudino Age: 55 years : 1970 Gender: Female Ht: 69 in Wt: 267 lbs BSA: 2.48 m2 HR: 93 bpm BP: 134 / 85 mmHg Heart Rhythm: Sinus Rhythm Technical Quality: Fair Exam Date: 08/04/2025 3:02 PM Patient Status: O Admit Date: 08/04/2025 Exam Type: CA echo doppler color flow Complete two-dimensional, color flow and Doppler transthoracic echocardiogram is performed. Manager Freelance: Mesha Freeman Attending Provider: Ladarius Osborne Summary 1. Complete two-dimensional, color flow and Doppler transthoracic echocardiogram is performed. 2. Left ventricular systolic function is normal, estimated at 55-60. 3. The left ventricular diastolic function is grade II diastolic dysfunction. 4. There is mild tricuspid valve regurgitation. 5. No pulmonary hypertension, estimated pulmonary arterial systolic pressure is 27 mmHg. Left Ventricle Left ventricular chamber dimension is normal. Left ventricular systolic function is normal, estimated at 55-60. There is no increased left ventricular wall thickness. Left ventricular septal wall motion is normal. The left ventricular diastolic function is grade II diastolic dysfunction. Right Ventricle Right ventricular chamber dimension is normal. Right ventricular systolic function is normal. Left Atria Left atrial chamber dimension is normal. Right Atria Right atrial chamber dimension is normal. Aortic Valve The aortic valve is trileaflet. There is no aortic valve sclerosis. There is no aortic valve stenosis. There is no aortic valve regurgitation. Pulmonic Valve The pulmonic valve is normal. There is no pulmonic valve stenosis. There is no pulmonic regurgitation. Mitral Valve The mitral valve has normal leaflets. There is no mitral valve stenosis. There is no mitral valve regurgitation. Tricuspid Valve The tricuspid valve leaflets are normal. There is no significant tricuspid valve stenosis. There is mild tricuspid valve regurgitation. No pulmonary hypertension, estimated pulmonary arterial systolic pressure is 27 mmHg. Pericardium/Pleural The pericardium appears normal. There is no pericardial effusion. Inferior Vena Cava Normal inferior vena cava with >50% collapse upon inspiration consistent with normal right atrial pressure, 5 mmHg. Aorta The aortic root size at the sinus of Valsalva is normal. The prox ascending aorta size is normal. Left Ventricular Outflow Tract Name Value Normal LVOT 2D LVOT Diameter 2.0 cm LVOT Doppler LVOT Peak Velocity 112 cm/s LVOT Peak Gradient 5 mmHg LVOT Mean Gradient 2 mmHg LVOT VTI 18 cm LVOT VTI/AV VTI Ratio 0.7 LVOT Stroke Volume 57 ml LVOT CO 5.1 l/min LVOT CI 2.1 l/min/m2 Pulmonic Valve Name Value Normal RVOT Doppler RVOT Peak Velocity 97 cm/s RVOT Peak Gradient 4 mmHg PV Doppler PV Peak Velocity 137 cm/s PV Peak Gradient 8 mmHg Mitral Valve Name Value Normal MV Diastolic Function MV E Peak Velocity 67 cm/s MV A Peak Velocity 59 cm/s MV E/A 1.1 MV Decel Time (PW) 205 ms MV Annular TDI MV E/e' (Septal) 10.4 MV E/e' (Lateral) 10.0 MV E/e' (Average) 10.2 Tricuspid Valve Name Value Normal TV Regurgitation Doppler TR Peak Velocity 237 cm/s TR Peak Gradient 22 mmHg Estimated PAP/RSVP RA Pressure 5 mmHg <=5 PA Systolic Pressure 27 mmHg <36 RV Systolic Pressure 27 mmHg <36 TV Annular TDI TV Lateral Savana s' Velocity 12.6 cm/s >=9.5 Aorta Name Value Normal Ascending Aorta Ao Root Diameter (MM) 2.9 cm Ao Root Diam Index (MM) 1.2 cm/m2 Aortic Valve Name Value Normal AV Doppler AV Peak Velocity 172 cm/s AV Peak Gradient 12 mmHg AV Mean Gradient 5 mmHg AV VTI 26 cm AV Area (Cont Eq VTI) 2.2 cm2 >=3.0 AV Area (Cont Eq Jeremiah) 2.1 cm2 AV DI (Jeremiah) 0.65 AV Regurgitation 2D LVOT Area 3.2 cm2 Ventricles Name Value Normal LV Dimensions 2D/MM IVS Diastolic Thickness (2D) 0.9 cm 0.6-1.0 LVID Diastole (2D) 5.2 cm 3.8-5.2 LVIW Diastolic Thickness (2D) 0.9 cm 0.6-0.9 LVID Systole (2D) 3.1 cm 2.2-3.5 LVOT Diameter 2.0 cm LV Mass (2D Cubed) 166.40 g 67.00-162.00 LV Mass Index (2D Cubed) 67 g/m2 43-95 Relative Wall Thickness (2D) 0.35 <=0.42 LV Fractional Shortening/Ejection Fraction 2D/MM LV Fractional Shortening (2D) 40 % 27-45 LV EF (2D Teichholz) 70 % LV Diastolic Volume (4C MOD) 51 ml LV EF (4C MOD) 65 % LV Diastolic Volume (2C MOD) 42 ml LV EF (2C MOD) 66 % LV Diastolic Volume (BP MOD) 47 ml 46-106 LV Diastolic Volume Index (BP MOD) 19 ml/m2 29-61 LV Systolic Volume (BP MOD) 16 ml 14-42 LV Systolic Volume Index (BP MOD) 6 ml/m2 8-24 LV EF (BP MOD) 66 % 54-74 LV Diastolic Length (4C) 6.7 cm LV Systolic Length (4C) 5.6 cm LV Stroke Volume (4C MOD) 33 ml Atria Name Value Normal LA Dimensions LA Dimension (MM) 3.4 cm 2.7-3.8 LA Volume (4C A-L) 40 ml LA Volume (BP A-L) 39 ml RA Dimensions RA Area (4C) 11.3 cm2 <=18.0 Report Signatures
--- OUTSIDE RECORDS SUMMARY | 2025-08-04 16:09 | XMS_ITS | Clinical Summary ---
Author Organization [facility] Address [address] [place] [address] Phone Care Team Providers Care Inspector Semiconductor Wafer Name Role Phone Unavailable Primary Care Provider [...] Comments Blood Pressure 143/92 08/30/2021 10:00 AM BANKING SUPERVISOR Pulse 90 08/30/2021 10:00 AM BANKING SUPERVISOR Temperature 36.7 C (98.1 F) 08/30/2021 10:00 AM BANKING SUPERVISOR Respiratory Rate - - Oxygen Saturation - - Inhaled Oxygen Concentration - - Weight 117 kg (258 lb) 08/30/2021 10:00 AM BANKING SUPERVISOR Height 175 cm (5' 8.9) 08/30/2021 10:00 AM BANKING SUPERVISOR Body Mass Index 38.21 08/30/2021 10:00 AM BANKING SUPERVISOR Plan of Treatment Health Maintenance Due Date [...] 05/03/2031 Insurance BCBS BLUE ACCESS/TRUE BLUE PPO [facility] TRADITIONAL
--- OUTSIDE RECORDS SUMMARY | 2025-08-04 16:09 | XMS_ITS | Clinical Summary ---
Author Organization [facility] [address] Address [address] [address] Care Team Providers Care Director Decision Support Name Role Phone Ladarius Osborne MD Primary Care Provider [phone] Solo Pritchett MD Unavailable [phone] Allergies Active Allergy Reactions Criticality Noted Date [...] 09/02 Surgical History Surgery Date Site/Laterality Comments [place] LIG/TRNSXJ FLP TUBE ABDL/ VAG APPR UNI/BI Tubal Ligation - (Added by TW Conv) [place] TONSILLECTOMY PRIMARY/SEC ONDARY <AGE 13 Tonsillectomy - [...] on file Legal Sex Female 7:28 PM [employer] Gender Identity Not on file Sexual Orientation Not on file Last Filed Vital Signs Vital Sign Reading Time Taken Comments Blood Pressure 150/94 11/10/2023 12:35 AM [employer] Pulse 79 11/10/2023 1:10 AM [employer] Temperature 36.6 C (97.8 F) 11/09/2023 6:10 PM [employer] Respiratory Rate 20 11/09/2023 6:10 PM [employer] Oxygen Saturation 98% 11/10/2023 1:10 AM [employer] Inhaled Oxygen Concentration - - Weight 117.9 kg (260 lb) 11/09/2023 6:10 PM [employer] Height 175.3 cm (5' 9) 11/09/2023 6:10 PM [employer] Body Mass Index 38.4 11/09/2023 6:10 PM [employer] Plan of Treatment Health Maintenance Due Date [...] Associated Diagnosis Comments SCREENING MAMMOGRAM BILATERAL W ALEN Schedule Routine, Read Routine (OP Routine) 12/18/2024 3:18 PM CDT Screening mammogram, encounter for COLONOSCOPY 05/03/2021 7:12 AM CDT from Last 3 Months or Most Recently Relevant to Health Maintenance Results * Screening Mammogram Bilateral W Alen (12/18/2024 3:18 PM CDT) Anatomical Region Laterality Modality Breast Bilateral Mammography Narrative 12/18/2024 4:10 PM CDT Mammogram Technique: Bilateral Digital Breast Tomosynthesis, Bilateral C-view 2D Screening mammogram. Views obtained: bilateral craniocaudal and bilateral mediolateral oblique. Computer Aided Detection was performed. Mammogram Findings: The present examination has been compared to prior imaging studies performed at [facility] on 12/24/2020, 01/18/2022 and 10/27/2022. There are [...] compared to prior imaging studies performed at [facility] on 12/24/2020, 01/18/2022 and 10/27/2022. There are [...] Cruz MD - 05/03/2021 7:12 AM CDT [facility] Patient Name: Jerilyn Gudino Procedure Date: 05/03/2021 7:12 AM Date of : 1970 Admit Type: Outpatient Age: 51 Gender: Female Attending MD: Ladarius Cruz M.D. Room: [facility] ROOM 02 Note Status: Finalized Procedure: [...] The scope was passed under direct vision.The [id number] Colonoscope was introducedthrough the anus and advanced to the the terminal ileum.The colonoscopy was performed without difficulty. The patient tolerated the procedure well. The qualityof the bowel preparation was evaluated using the BBPS (Vera Bowel Preparation Scale) with scores of:Right Colon [...] business hours - Please call theNurse Coordinator: [phone] After hours, evening, nights, weekends and holidays- Please call the hospital jewel oliving machine operator at and ask for the GI fellow shank boner. Attending Participation: I personally performed the entire procedure. Electronically signed by Ladarius Cruz MD Ladarius Cruz M.D. 05/03/2021 2:18:45 PM . Number of Addenda: 0 Note Initiated On: 05/03/2021 7:12 AM Recognized by the [employer] for promoting quality in endoscopy Ladarius Cruz MD ENDOSCOPY PROCEDURES Final Result from Last 3 Months or Most Recently Relevant to Health Maintenance Insurance [facility] [employer] OOS [id number] [place] [address] ACCESS BLUE [employer] [place] BLUE [place] [employer] [place] [employer] [place] Care Teams Director Decision Support Relationship Specialty Start Date End Date Ladarius Osborne MD PCP - General 05/17/17 Solo Pritchett MD [address] [place] [address] Referring Physician Obstetrics and Gynecology 11/25/19
--- OUTSIDE RECORDS SUMMARY | 2025-08-04 16:09 | XMS_ITS | Clinical Summary ---
Author Organization [facility] Address [address] [place] [address] Care Team Providers Care Payroll Master Name Role Phone Ladarius Osborne MD Primary Care Provider [phone] Source Comments [facility],non-owned Affiliates and Associated Physician Practices is amultiple site organization consisting of ambulatory clinics and hospital sitesin [place], [place], [place] and [place]. This disclosure is being madepursuant to the Care Everywhere program and may not contain all information available regarding this patient. Last updated 18.[facility] [employer] Allergies Active Allergy Reactions Criticality Noted Date [...] 2021 ZOSTER VACCINE (1 of 2) 2021 DEPRESSION SCREENING 10/01/2024 COVID-19 VACCINE (1 - 2023-2 5 season) 2025 INFLUENZA VACCINE (#1) 2025 DTAP/TDAP/TD VACCINES (2 [...] patient's age to complete this topic Insurance [facility] Address: [place] [id number] ANTHEM Care Teams Payroll Master Relationship Specialty Start Date End Date Ladarius Osborne MD PCP - General Internal Medicine 07/12/17
== END 2025-08-04 14:35 | disposition home or self-care (01) ==
LOC: ANHCARD 14:36
PROVIDERS: PCP Internal Medicine; Visit Provider Internal Medicine
DX: R93.1 Abnormal findings on diagnostic imaging of heart and coronary circulation (principal); R06.02 Shortness of breath
CPT/HCPCS: 93306